=== PATIENT | male | born 1960 | race Caucasian/White ===

== ENCOUNTER 2019-01-23 16:48 | Inpatient (IN) | payer OTHER ==
[~2019-01-23] VITALS: Ht 177.8 cm; Wt 88.5 kg
--- OUTSIDE RECORDS SUMMARY | 2019-01-23 16:51 | XMS REPORT ---
Author Author Cornell Glez Organization [employer] Address Unknown Phone Unavailable Care Team Providers Care Coater Brake Linings Name Role Phone Cornell Glez CP Unavailable Allergies, Adverse Reactions, Alerts Substance Reaction Event Type N.K.D.A. 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 Active Problem Peripheral vascular disease I73.9 Active Assessment Diabetic retinopathy associated with controlled type 2 diabetes mellitus E11.319 Active Problem Other and unspecified hyperlipidemia E78.5 Active Problem Cardiomyopathy I42.9 Active Problem History of CVA (cerebrovascular accident) Z86.73 Active Problem Essential (primary) hypertension I10 Active Problem Proliferative diabetic retinopathy 362.02 Active Problem Gastroparesis K31.84 Active Assessment Essential (primary) hypertension I10 Active Assessment Type 2 diabetes mellitus with diabetic chronic kidney disease E11.22 Active Assessment Chronic kidney disease, stage 4 (severe) N18.4 Active Assessment Other and unspecified hyperlipidemia E78.5 Active Problem Diabetic retinopathy associated with controlled type 2 diabetes mellitus E11.319 Active Problem Hypertensive urgency I16.0 Active Problem Periaortic lymphadenopathy R59.0 Active Problem Elevated PSA R97.20 Active Problem Right carotid artery occlusion I65.21 Active Problem Chronic combined systolic and diastolic heart failure I50.42 Active Medications Medication Code System Code Instructions Start Date End Date Status Dosage Atorvastatin Calcium ND 81377928185 40 mg Orally Once a day Active 1 tablet Pantoprazole Sodium ND 02592754972 40 mg Orally twice a day (bid) Active 1 tablet Glimepiride ND 82661031184 4 mg Orally Once a day April 20, 2018 Active 1 tablet with breakfast or the first main meal of the day Reglan ND 63511555445 5 MG Orally 4 times a day befor meals and at bedtime Active 1 tablet Hemocyte Plus [facility] 12652372056 106-1 MG Orally Once a day April 24, 2018 Active 1 capsule HydrALAZINE HCl [facility] 73616214872 50 mg Orally BID April 20, 2018 Active 1 tablet Lasix [facility] 34750096334 40 mg Orally Once a day April 20, 2018 Active 1 tablet Aspir-[address] [facility] 81320881496 81 MG Orally Once a day Active 1 tablet Vital Signs Date/Time: May 29, 2018 BMI 29.03 Index Weight 196.6 lbs Height 69.0 in Temperature 97.1 F Cardiac Monitoring Heart Rate 82 /min Blood Pressure Diastolic 94 mm Hg Blood Pressure Systolic 183 mm Hg Results No Known Results Summary Purpose [employer] Submission
--- OUTSIDE RECORDS SUMMARY | 2019-01-23 16:51 | XMS REPORT ---
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 Active Problem Peripheral vascular disease I73.9 Active Problem Other and unspecified hyperlipidemia E78.5 Active Problem Cardiomyopathy I42.9 Active Problem History of CVA (cerebrovascular accident) Z86.73 Active Problem Essential (primary) hypertension I10 Active Problem Proliferative diabetic retinopathy 362.02 Active Problem Gastroparesis K31.84 Active Problem Diabetic retinopathy associated with controlled type 2 diabetes mellitus E11.319 Active Problem Hypertensive urgency I16.0 Active Problem Periaortic lymphadenopathy R59.0 Active Problem Elevated PSA R97.20 Active Problem Right carotid artery occlusion I65.21 Active Problem Chronic combined systolic and diastolic heart failure I50.42 Active Medications No Known Medications Results No Known Results Summary Purpose [employer] Submission
--- OUTSIDE RECORDS SUMMARY | 2019-01-23 16:51 | XMS REPORT ---
Author Author Cornell Glez Organization [employer] Address Unknown Phone Unavailable Care Team Providers Care Particle Board Supervisor Name Role Phone Cornell Glez CP Unavailable [...]
--- OUTSIDE RECORDS SUMMARY | 2019-01-23 16:51 | XMS REPORT ---
Author Author Cornell Glez Organization [employer] Address Unknown Phone Unavailable Care Team Providers Care Panel Builder Name Role Phone Cornell Glez CP Unavailable [...] Problem Peripheral vascular disease I73.9 Active Assessment Peripheral vascular disease I73.9 Active Problem Other and unspecified hyperlipidemia E78.5 Active Problem Cardiomyopathy I42.9 Active Problem History of CVA (cerebrovascular accident) Z86.73 Active Problem Essential (primary) hypertension I10 Active Problem Proliferative diabetic retinopathy 362.02 Active Problem Gastroparesis K31.84 Active Assessment Essential (primary) hypertension I10 Active Assessment Type 2 diabetes mellitus with diabetic chronic kidney disease E11.22 Active Assessment Hypertensive urgency I16.0 Active Problem Diabetic retinopathy associated with controlled type 2 diabetes mellitus E11.319 Active Problem Hypertensive urgency I16.0 Active Problem Periaortic lymphadenopathy R59.0 Active Problem Elevated PSA R97.20 Active Problem Right carotid artery occlusion I65.21 Active Problem Chronic combined systolic and diastolic heart failure I50.42 Active Medications Medication Code System Code Instructions Start Date End Date Status Dosage Pantoprazole Sodium [facility] 76415731049 40 mg Orally twice a day (bid) Active 1 tablet Questran ND 68285504940 4 GM Orally Twice a day for diarrhea Oct 22, 2018 Active 1 packet mixed with water or non-carbonated drink Reglan ND 42201523447 5 MG Orally 4 times a day befor meals and at bedtime Active 1 tablet Hemocyte Plus [facility] 00801340646 106-1 MG Orally Once a day April 24, 2018 Active 1 capsule Glimepiride ND 87561399864 4 mg Orally Once a day April 20, 2018 Active 1 tablet with breakfast or the first main meal of the day Lasix [facility] 69197586535 40 mg Orally Once a day April 20, 2018 Active 1 tablet Atorvastatin Calcium [facility] 84693120666 40 mg Orally Once a day Active 1 tablet HydrALAZINE HCl [facility] 76578174224 50 mg Orally BID April 20, 2018 Active 1 tablet Aspir-81 [facility] 25290878792 81 MG Orally Once a day Active 1 tablet Metoprolol Tartrate [facility] 83760404227 50 mg Orally Twice a day Oct 20, 2018 Active 1 tablet with food Vital Signs Date/Time: Oct 20, 2018 BMI 28.72 Index Weight 194.5 lbs Height 69.0 in Temperature 96.2 F Cardiac Monitoring Heart Rate 83 /min Blood Pressure Diastolic 97 mm Hg Blood Pressure Systolic 183 mm Hg Results Name Result Date Reference Range Unit Abnormality Flag CBC (INCLUDES DIFF/PLT) ----ABSOLUTE NEUTROPHILS 3055 20181021 3007-0209 cells/uL N ----MPV 10.4 33424117 7.5-12.5 fL N ----EOSINOPHILS 5.5 96758283 % N ----HEMOGLOBIN 7.5 78513340 13.2-17.1 g/dL L ----MONOCYTES 9.8 76621165 % N ----HEMATOCRIT 22.5 96798833 38.5-50.0 % L ----LYMPHOCYTES 19.1 31275667 % N ----MCV 94.9 63834693 80.0-100.0 fL N ----NEUTROPHILS 65 56325739 % N ----MCH 31.6 87475140 27.0-33.0 pg N ----ABSOLUTE BASOPHILS 28 36153041 0-200 cells/uL N ----MCHC 33.3 41093502 32.0-36.0 g/dL N ----BASOPHILS 0.6 51745843 % N ----ABSOLUTE EOSINOPHILS 259 98733862 15-500 cells/uL N ----RDW 14.0 13401009 11.0-15.0 % N ----WHITE BLOOD CELL COUNT 4.7 18047547 3.8-10.8 Thousand/uL N ----PLATELET COUNT 195 64233905 140-400 Thousand/uL N ----ABSOLUTE MONOCYTES 461 20181021 200-950 cells/uL N ----RED BLOOD CELL COUNT 2.37 20181021 4.20-5.80 Million/uL L ----ABSOLUTE LYMPHOCYTES 898 20181021 850-3900 cells/uL N HEMOGLOBIN A1c ----HEMOGLOBIN A1c 5.2 20181021 <5.7 % of total Hgb N LIPID PANEL ----NON HDL CHOLESTEROL 146 20181021 <130 mg/dL (calc) H ----CHOL/HDLC RATIO 4.9 20181021 <5.0 (calc) N ----CHOLESTEROL, TOTAL 183 20181021 <200 mg/dL N ----HDL CHOLESTEROL 37 20181021 >40 mg/dL L ----TRIGLYCERIDES 86 20181021 <150 mg/dL N ----LDL-CHOLESTEROL 127 20181021 mg/dL (calc) H COMPREHENSIVE METABOLIC PANEL ----SODIUM 137 20181021 135-146 mmol/L N ----BUN/CREATININE RATIO 12 20181021 6-22 (calc) N ----CHLORIDE 109 20181021 98-110 mmol/L N ----POTASSIUM 5.8 20181021 3.5-5.3 mmol/L H ----CALCIUM 8.0 20181021 8.6-10.3 mg/dL L ----PROTEIN, TOTAL 6.9 20181021 6.1-8.1 g/dL N ----CARBON DIOXIDE 19 20181021 20-32 mmol/L L ----ALBUMIN/GLOBULIN RATIO 1.2 20181021 1.0-2.5 (calc) N ----eGFR NON-AFR. ZIMBABWEAN 14 20181021 > OR=60 mL/min/1.73m2 L ----BILIRUBIN, TOTAL 0.4 20181021 0.2-1.2 mg/dL N ----eGFR 16 20181021 > OR=60 mL/min/1.73m2 L ----UREA NITROGEN (BUN) 52 20181021 7-25 mg/dL H ----ALBUMIN 3.8 20181021 3.6-5.1 g/dL N ----GLOBULIN 3.1 20181021 1.9-3.7 g/dL (calc) N ----CREATININE 4.30 20181021 0.70-1.33 mg/dL H ----ALT 10 20181021 9-46 U/L N ----GLUCOSE 100 20181021 65-99 mg/dL H ----ALKALINE PHOSPHATASE 61 20181021 40-115 U/L N ----AST 12 20181021 10-35 U/L N TSH ----TSH 3.54 20181021 0.40-4.50 mIU/L N Summary Purpose [employer]Works Submission
--- OUTSIDE RECORDS SUMMARY | 2019-01-23 16:51 | XMS REPORT | Continuity of Care Document ---
Author Author [facility] Interface Address Unknown Phone Unavailable Problems Problem Status Onset Date Classification Date Reported Comments Source Chronic kidney disease, stage 4 Active Problem 11/09/2018 2.16.840.1.018346.4.391.11.13544 Type 2 diabetes mellitus with diabetic chronic kidney disease Active Problem 11/09/2018 2.16.840.1.003022.4.391.11.78732 Type 2 diabetes mellitus with diabetic autonomic neuropathy Active Problem 11/09/2018 2.16.840.1.231217.4.391.11.32787 Peripheral vascular disease Active Problem 11/09/2018 2.16.840.1.521072.4.391.11.76523 Diabetic retinopathy associated with controlled type 2 diabetes mellitus Active Problem 11/09/2018 2.16.840.1.987356.4.391.11.82240 Other and unspecified hyperlipidemia Active Problem 11/09/2018 2.16.840.1.568798.4.391.11.27810 Cardiomyopathy Active Problem 11/09/2018 2.16.840.1.460416.4.391.11.33598 History of CVA Active Problem 11/09/2018 2.16.840.1.558115.4.391.11.79437 Essential hypertension Active Problem 11/09/2018 2.16.840.1.234737.4.391.11.33993 Proliferative diabetic retinopathy Active Problem 11/09/2018 2.16.840.1.385051.4.391.11.41717 Gastroparesis Active Problem 11/09/2018 2.16.840.1.785640.4.391.11.90388 Hypertensive urgency Active Problem 11/09/2018 2.16.840.1.761806.4.391.11.19272 Periaortic lymphadenopathy Active Problem 11/09/2018 2.16.840.1.390826.4.391.11.73180 Elevated PSA Active Problem 11/09/2018 2.16.840.1.371258.4.391..47973 Right carotid artery occlusion Active Problem 11/09/2018 2.16.840.1.265221.4.391.11.61538 Chronic combined systolic and diastolic heart failure Active Problem 11/09/2018 2.16.840.1.867532.4.391. Acute bronchitis, unspecified organism Active Diagnosis 11/09/2018 2.16.840.1.248338.4.391..33058 Medications Medication Details Route Status Patient Instructions Ordering Provider Order Date Source Questran 1 packet mixed with water or non-carbonated drink Orally Active 4 GM Orally Twice a day [place] 11/03/2018 2.16.840.1.922205.4.391. Promethazine-DM 5 ml as needed Orally Active 6.25-15 MG/5ML Orally every 6 hrs [place] 11/03/2018 2.16.840.1.589885.4.391.. Ceftin 1 tablet Orally Active 250 MG Orally every 12 hrs [place] 11/03/2018 2.16.840.1.879868.4.391. Questran 1 packet mixed with water or non-carbonated drink Orally Active 4 GM Orally Twice a day for diarrhea [place] 10/22/2018 2.16.840.1.997952.4.391. Metoprolol Tartrate 1 tablet with food Orally Active 100 mg Orally Twice a day [place] 10/20/2018 2.16.840.1.668228.4.391. Metoprolol Tartrate 1 tablet with food Orally Active 50 mg Orally Twice a day [place] 10/20/2018 2.16.840.1.717134.4.391. Hemocyte Plus 1 capsule Orally Active 106-1 MG Orally Once a day [place] 04/24/2018 2.16.840.1.905146.4.391. Glimepiride 1 tablet with breakfast or the first main meal of the day Orally Active 4 mg Orally Once a day [place] 04/20/2018 2.16.840.1.029634.4.391.11. HydrALAZINE HCl 1 tablet Orally Active 50 mg Orally BID [place] 04/20/2018 2.16.840.1.647197.4.391.11. Lasix 1 tablet Orally Active 40 mg Orally Once a day [place] 04/20/2018 2.16.840.1.397785.4.391.. HydrALAZINE HCl 1 tablet Orally Active 100 MG Orally BID [place] 04/20/2018 2.16.840.1.503012.4.391.11. Atorvastatin Calcium 1 tablet Orally Active 40 mg Orally Once a day [place] 2.16840.1.543096.4.391. Pantoprazole Sodium 1 tablet Orally Active 40 mg Orally twice a day (bid) [place] 2.16840.1.578930.4.391. Reglan 1 tablet Orally Active 5 MG Orally 4 times a day befor meals and at bedtime [place] 2.16.840.1.670149.4.391. Aspir-81 1 tablet Orally Active 81 MG Orally Once a day [place] 2.16840.1.002170.4.391.. Allergies, Adverse Reactions, Alerts Substance Category Reaction Severity Reaction type Status Date Reported Comments Source N.K.D.A. Adverse Reaction Info Not Available Adverse Reaction Active 11/03/2018 2.16840.1.087813.4.391..71823 Immunizations Immunization Date Given Site Status Last Updated Comments Source Results Order Name Results Value Reference Range Date Interpretation Comments Source Vital Signs Vital Sign Value Date Comments Source Weight 194.0 11/03/2018 2.16.840.1.800294.4.391..45927 Height 69.0 11/03/2018 2.16.840.1.259649.4.391..32153 Temperature Oral (F) 97.0 F 11/03/2018 2.16.840.1.562871.4.391..79242 Heart Rate 86 11/03/2018 2.16.840.1.294611.4.391.11.80681 Diastolic (mm Hg) 100 11/03/2018 2.16.840.1.075401.4.391.11.83342 Systolic (mm Hg) 166 11/03/2018 2.16.840.1.551957.4.391.11.62451 Weight 194.5 10/20/2018 2.16.840.1.760669.4.391.11.06563 Height 69.0 10/20/2018 2.16.840.1.208493.4.391.11.24241 Temperature Oral (F) 96.2 F 10/20/2018 2.16.840.1.900265.4.391.11.26100 Heart Rate 83 10/20/2018 2.16.840.1.560381.4.391.11.00894 Diastolic (mm Hg) 97 10/20/2018 2.16.840.1.138378.4.391.11.58611 Systolic (mm Hg) 183 10/20/2018 2.16.840.1.858004.4.391.11.02270 Weight 196.6 05/29/2018 2.16.840.1.821380.4.391.11.30984 Height 69.0 05/29/2018 2.16.840.1.359069.4.391.11.98080 Temperature Oral (F) 97.1 F 05/29/2018 2.16.840.1.457877.4.391.11.89181 Heart Rate 82 05/29/2018 2.16.840.1.339841.4.391.11.30115 Diastolic (mm Hg) 94 05/29/2018 2.16.840.1.239419.4.391.11.09587 Systolic (mm Hg) 183 05/29/2018 2.16.840.1.415500.4.391.11.54455 Encounters Location Location Details Encounter Type Encounter Number Reason For Visit Attending Provider ADM Date DC Date Status Source Procedures Procedure Code Date Perfomer Comments Source
--- OUTSIDE RECORDS SUMMARY | 2019-01-23 16:51 | XMS REPORT ---
Author Author Cornell Glez Organization [employer] Address Unknown Phone Unavailable Care Team Providers Care Steel Checker Name Role Phone Cornell Glez CP Unavailable [...] 362.02 Active Problem Gastroparesis K31.84 Active Assessment Acute bronchitis, unspecified organism J20.9 Active Assessment Type 2 diabetes mellitus with diabetic chronic kidney disease E11.22 Active Assessment Essential (primary) hypertension I10 Active Problem Diabetic retinopathy associated with controlled type 2 diabetes mellitus E11.319 Active Problem Hypertensive urgency I16.0 Active Problem Periaortic lymphadenopathy R59.0 Active Problem Elevated PSA R97.20 Active Problem Right carotid artery occlusion I65.21 Active Problem Chronic combined systolic and diastolic heart failure I50.42 Active Medications Medication Code System Code Instructions Start Date End Date Status Dosage Aspir-81 [facility] 37194072589 81 MG Orally Once a day Active 1 tablet Lasix [facility] 34511429932 40 mg Orally Once a day April 20, 2018 Active 1 tablet Pantoprazole Sodium [facility] 23332047473 40 mg Orally twice a day (bid) Active 1 tablet Questran [facility] 93912218452 4 GM Orally Twice a day Nov 03, 2018 Active 1 packet mixed with water or non-carbonated drink Hemocyte Plus [facility] 39885976943 106-1 MG Orally Once a day April 24, 2018 Active 1 capsule Glimepiride [facility] 15181848772 4 mg Orally Once a day April 20, 2018 Active 1 tablet with breakfast or the first main meal of the day Promethazine-DM ND 63229475380 6.25-15 MG/5ML Orally every 6 hrs Nov 03, 2018 Nov 13, 2018 Active 5 ml as needed Metoprolol Tartrate [facility] [address]-36 100 mg Orally Twice a day Oct 20, 2018 Active 1 tablet with food HydrALAZINE HCl ND 34549782148 100 MG Orally BID April 20, 2018 Active 1 tablet Questran ND 20788498396 4 GM Orally Twice a day for diarrhea Oct 22, 2018 Active 1 packet mixed with water or non-carbonated drink Ceftin NDC 0 250 MG Orally every 12 hrs Nov 03, 2018 Nov 13, 2018 Active 1 tablet Atorvastatin Calcium ND 89176631097 40 mg Orally Once a day Active 1 tablet Reglan ND 34004348311 5 MG Orally 4 times a day befor meals and at bedtime Active 1 tablet Vital Signs Date/Time: Nov 03, 2018 BMI 28.65 Index Weight 194.0 lbs Height 69.0 in Temperature 97.0 F Cardiac Monitoring Heart Rate 86 /min Blood Pressure Diastolic 100 mm Hg Blood Pressure Systolic 166 mm Hg Results No Known Results Summary Purpose [employer]ClinicalWorks Submission
--- OUTSIDE RECORDS SUMMARY | 2019-01-23 16:52 | XMS REPORT ---
Author [facility] Address Unknown Phone Unavailable Care Team Providers Care Last Putter Away Name Role Phone UNKNOWN, REFFERING PP Unavailable Terry WICK MOBNI Unavailable Unavailable NANJAMES, S CHEL Unavailable Unavailable CLARKE DERAS Unavailable Unavailable RASSOLI, AMIR Unavailable Unavailable Payers Payer Name Policy Type Policy Number Effective Date Expiration Date Problems This patient has no known problems. Allergies, Adverse Reactions, Alerts Allergy Name Allergy Type Status Severity Reaction(s) Onset Date Inactive Date Treating Clinician Comments No Known Allergies DA Active U 2018-09-02 00:00:00 No Known Allergies DA Active U 2018-01-20 00:00:00 Medications This patient has no known medications. Encounters Start Date/Time End Date/Time Encounter Type Admission Type Attending Clinicians Care Facility Care Department Encounter ID 2018-02-03 17:03:00 2018-02-03 17:03:00 Outpatient E [facility] MED [id number] 2018-01-16 23:19:00 2018-01-16 23:19:00 Emergency E [facility] MED [id number] Results Test Description Test Time Test Comments Text Results Atomic Results Result Comments Culture, Blood Routine 2018-02-06 19:44:00 Specimen: BloodCollected: 02/01/2018 10:15 Status: Final Last Updated: 02/06/2018 19:44 Culture Result (Final) (Final) No Growth After 5 Days Culture, Blood Routine 2018-02-06 19:44:00 Specimen: BloodCollected: 02/01/2018 10:00 Status: Final Last Updated: 02/06/2018 19:44 Culture Result (Final) (Final) No Growth After 5 Days POC Glucose, Blood 2018-02-06 11:56:00 POC Glucose (test code=POCGLUC) 221 mg/dL 70-115 If you consider your patient critically ill, the Yoandy Accu-Chek InformII metershould not be used for Glucose determinations.Draw a venous Glucose and send to the Main Lab for Analysis. POC Glucose, [id number] 08:28:00* Test Item Value Reference Range Comments POC Glucose (test code=POCGLUC) 140 mg/dL 70-115 If you consider your patient critically ill, the Yoandy Accu-Chek InformII metershould not be used for Glucose determinations.Draw a venous Glucose and send to the Main Lab for Analysis. Basic Metabolic [id number] 07:58:00* Test Item Value Reference Range Comments Sodium (test code=NA) 141 mmol/L 135-145 Potassium (test code=K) 4.1 mmol/L 3.5-5.1 Chloride (test code=CL) 101 mmol/L 98-105 Carbon Dioxide (test code=CO2) 28 mmol/L 22-29 Glucose (test code=GLU) 119 mg/dL 70-115 Blood Urea Nitrogen (test code=BUN) 37 mg/dL 6-20 Creatinine (test code=CREAT) 2.6 mg/dL 0.7-1.2 Calcium (test code=CA) 8.1 mg/dL 8.3-10.5 BUN/Creatinine Ratio (test code=BCRATIO) 14.2 Anion Gap (test code=AGAP) 12 mmol/L 7-16 Estimated GFR (test code=GFR) 27 mL/min/1.73m2 eGFR (estimated Glomerular Filtration Rate) is an estimated value,calculated from the patient's serum creatinine using the MDRD equation.It is NOT the patient's actual GFR. The eGFR provides a more clinicallyuseful measure of kidney disease than serum creatinine alone.This calculation takes sex and race into account, if the informationis provided. If the race is not provided, and the patient isAfrican-Danish, multiply by 1.212. If sex is not provided, and thepatient is female, multiply by 0.742. Results for patients <18 years ofage have not been validated by the MDRD study and should be interpretedwith caution.eGFR Result Interpretation:eGFR > or=60 is in the Normal RangeeGFR < 60 may mean kidney diseaseeGFR < 15 may mean kidney failureRanges recommended by the National Kidney Foundat ion,http://nkdep.nih.gov Magnesium, [id number] 07:40:00* Test Item Value Reference Range Comments Magnesium (test code=MG) 1.6 mg/dL 1.7-2.5 [id number] 07:40:00* Test Item Value Reference Range Comments Phosphorus (test code=PO4) 3.4 mg/dL 2.70-4.50 CBC with [id number] 07:06:00* Test Item Value Reference Range Comments WBC (test code=WBC) 5.0 K/cumm 4.4-10.5 RBC (test code=RBC) 3.13 M/cumm 4.10-5.70 Hemoglobin (test code=HGB) 8.8 gm/dL 13.4-17.4 Hematocrit (test code=HCT) 27.9 % 38.7-52.0 MCV (test code=MCV) 89.1 fL 80-100 MCH (test code=MCH) 28.1 pg 27.0-32.5 MCHC (test code=MCHC) 31.6 g/dL 32.0-37.5 RDW (test code=RDW) 14.6 % 11.5-14.5 Platelet Count (test code=PLTCT) 240 K/cumm 140-440 MPV (test code=MPV) 10.1 fL Diff Method (test code=DIFFM) Auto Neutrophil (test code=NEUT) 60.4 % 36-70 Lymphocyte (test code=LYMPH) 25.8 % 12-44 Monocyte (test code=MONO) 7.0 % 0-11 Eosinophil (test code=EOS) 6.2 % 0-7 Basophil (test code=BASO) 0.6 % 0-2 Neutro Abs (test code=ANEUT) 3.0 K/cumm 1.6-7.4 Lymph Abs (test code=ALYMPH) 1.3 K/cumm 0.5-4.6 [place] Abs (test code=AMONO) 0.4 K/cumm 0.0-1.2 Eos Abs (test code=AEOS) 0.31 K/cumm 0.00-0.74 Baso Abs (test code=ABASO) 0.0 K/cumm 0.00-0.21 POC Glucose, [id number] 20:10:00* Test Item Value Reference Range Comments POC Glucose (test code=POCGLUC) 137 mg/dL 70-115 If you consider your patient critically ill, the Yoandy Accu-Chek InformII metershould not be used for Glucose determinations.Draw a venous Glucose and send to the Main Lab for Analysis. POC Glucose, [id number] 15:24:00* Test Item Value Reference Range Comments POC Glucose (test code=POCGLUC) 205 mg/dL 70-115 If you consider your patient critically ill, the Yoandy Accu-Chek InformII metershould not be used for Glucose determinations.Draw a venous Glucose and send to the Main Lab for Analysis. POC Glucose, [id number] 11:23:00* Test Item Value Reference Range Comments POC Glucose (test code=POCGLUC) 243 mg/dL 70-115 If you consider your patient critically ill, the Yoandy Accu-Chek InformII metershould not be used for Glucose determinations.Draw a venous Glucose and send to the Main Lab for Analysis. POC Glucose, [id number] 07:56:00* Test Item Value Reference Range Comments POC Glucose (test code=POCGLUC) 167 mg/dL 70-115 If you consider your patient critically ill, the Yoandy Accu-Chek InformII metershould not be used for Glucose determinations.Draw a venous Glucose and send to the Main Lab for Analysis. RBC, Crossmatch 06:00:00* Test Item Value Reference Range Comments Product 1 Code (test code=PRODCODE1) E0336 Unit 1 ID (test code=UNITID1) [id number] Unit 1 ABO (test code=UNITABO1) A Unit 1 Rh (test code=UNITRH1) POS Unit 1 Interp (test code=UNITINTERP1) Compatible Unit 1 Status (test code=UNITSTAT1) PT Product 2 Code (test code=PRODCODE2) E4533 Unit 2 ID (test code=UNITID2) [id number] Unit 2 ABO (test code=UNITABO2) A Unit 2 Rh (test code=UNITRH2) NEG Unit 2 Interp (test code=UNITINTERP2) Compatible Unit 2 Status (test code=UNITSTAT2) PT Basic Metabolic [id number] 05:44:00* Test Item Value Reference Range Comments Sodium (test code=NA) 140 mmol/L 135-145 Potassium (test code=K) 3.6 mmol/L 3.5-5.1 Chloride (test code=CL) 102 mmol/L 98-105 Carbon Dioxide (test code=CO2) 26 mmol/L 22-29 Glucose (test code=GLU) 151 mg/dL 70-115 Blood Urea Nitrogen (test code=BUN) 47 mg/dL 6-20 Creatinine (test code=CREAT) 2.8 mg/dL 0.7-1.2 Calcium (test code=CA) 7.7 mg/dL 8.3-10.5 BUN/Creatinine Ratio (test code=BCRATIO) 16.8 Anion Gap (test code=AGAP) 12 mmol/L 7-16 Estimated GFR (test code=GFR) 25 mL/min/1.73m2 eGFR (estimated Glomerular Filtration Rate) is an estimated value,calculated from the patient's serum creatinine using the MDRD equation.It is NOT the patient's actual GFR. The eGFR provides a more clinicallyuseful measure of kidney disease than serum creatinine alone.This calculation takes sex and race into account, if the informationis provided. If the race is not provided, and the patient isAfrican-Danish, multiply by 1.212. If sex is not provided, and thepatient is female, multiply by 0.742. Results for patients <18 years ofage have not been validated by the MDRD study and should be interpretedwith caution.eGFR Result Interpretation:eGFR > or=60 is in the Normal RangeeGFR < 60 may mean kidney diseaseeGFR < 15 may mean kidney failureRanges recommended by the National Kidney Foundat ion,http://nkdep.nih.gov [id number] 05:42:00* Test Item Value Reference Range Comments Phosphorus (test code=PO4) 3.7 mg/dL 2.70-4.50 Magnesium, [id number] 05:42:00* Test Item Value Reference Range Comments Magnesium (test code=MG) 1.9 mg/dL 1.7-2.5 CBC with [id number] 05:27:00* Test Item Value Reference Range Comments WBC (test code=WBC) 5.9 K/cumm 4.4-10.5 RBC (test code=RBC) 2.99 M/cumm 4.10-5.70 Hemoglobin (test code=HGB) 8.7 gm/dL 13.4-17.4 Hematocrit (test code=HCT) 26.4 % 38.7-52.0 MCV (test code=MCV) 88.3 fL 80-100 MCH (test code=MCH) 29.2 pg 27.0-32.5 MCHC (test code=MCHC) 33.1 g/dL 32.0-37.5 RDW (test code=RDW) 14.5 % 11.5-14.5 Platelet Count (test code=PLTCT) 221 K/cumm 140-440 MPV (test code=MPV) 9.8 fL Diff Method (test code=DIFFM) Auto Neutrophil (test code=NEUT) 67.0 % 36-70 Lymphocyte (test code=LYMPH) 20.7 % 12-44 Monocyte (test code=MONO) 6.7 % 0-11 Eosinophil (test code=EOS) 5.1 % 0-7 Basophil (test code=BASO) 0.4 % 0-2 Neutro Abs (test code=ANEUT) 3.9 K/cumm 1.6-7.4 Lymph Abs (test code=ALYMPH) 1.2 K/cumm 0.5-4.6 [place] Abs (test code=AMONO) 0.4 K/cumm 0.0-1.2 Eos Abs (test code=AEOS) 0.30 K/cumm 0.00-0.74 Baso Abs (test code=ABASO) 0.0 K/cumm 0.00-0.21 POC Glucose, [id number] 20:21:00* Test Item Value Reference Range Comments POC Glucose (test code=POCGLUC) 155 mg/dL 70-115 Notify RN or MDIf you consider your patient critically ill, the Yoandy Accu-Chek InformII metershould not be used for Glucose determinations.Draw a venous Glucose and send to the Main Lab for Analysis. POC Glucose, [id number] 15:52:00* Test Item Value Reference Range Comments POC Glucose (test code=POCGLUC) 145 mg/dL 70-115 If you consider your patient critically ill, the Yoandy Accu-Chek InformII metershould not be used for Glucose determinations.Draw a venous Glucose and send to the Main Lab for Analysis. POC Glucose, [id number] 11:22:00* Test Item Value Reference Range Comments POC Glucose (test code=POCGLUC) 188 mg/dL 70-115 If you consider your patient critically ill, the Yoandy Accu-Chek InformII metershould not be used for Glucose determinations.Draw a venous Glucose and send to the Main Lab for Analysis. POC Glucose, [id number] 08:02:00* Test Item Value Reference Range Comments POC Glucose (test code=POCGLUC) 128 mg/dL 70-115 If you consider your patient critically ill, the Yoandy Accu-Chek InformII metershould not be used for Glucose determinations.Draw a venous Glucose and send to the Main Lab for Analysis. CBC with [id number] 06:26:00* Test Item Value Reference Range Comments WBC (test code=WBC) 5.8 K/cumm 4.4-10.5 RBC (test code=RBC) 2.82 M/cumm 4.10-5.70 Hemoglobin (test code=HGB) 8.3 gm/dL 13.4-17.4 READ BACK LAB VALUESVERIFIED BY REPEAT TESTINGrechecked & called to dionisiorn @ 1151, post txn/mj Hematocrit (test code=HCT) 24.7 % 38.7-52.0 MCV (test code=MCV) 87.4 fL 80-100 MCH (test code=MCH) 29.5 pg 27.0-32.5 MCHC (test code=MCHC) 33.8 g/dL 32.0-37.5 RDW (test code=RDW) 14.3 % 11.5-14.5 Platelet Count (test code=PLTCT) 188 K/cumm 140-440 MPV (test code=MPV) 7.1 fL Diff Method (test code=DIFFM) Auto Neutrophil (test code=NEUT) 64.2 % 36-70 Lymphocyte (test code=LYMPH) 23.6 % 12-44 Monocyte (test code=MONO) 8.5 % 0-11 Eosinophil (test code=EOS) 3.4 % 0-7 Basophil (test code=BASO) 0.3 % 0-2 Neutro Abs (test code=ANEUT) 3.7 K/cumm 1.6-7.4 Lymph Abs (test code=ALYMPH) 1.4 K/cumm 0.5-4.6 [place] Abs (test code=AMONO) 0.5 K/cumm 0.0-1.2 Eos Abs (test code=AEOS) 0.20 K/cumm 0.00-0.74 Baso Abs (test code=ABASO) 0.0 K/cumm 0.00-0.21 Comprehensive Metabolic [id number] 06:11:00* Test Item Value Reference Range Comments Sodium (test code=NA) 139 mmol/L 135-145 Potassium (test code=K) 3.3 mmol/L 3.5-5.1 Chloride (test code=CL) 100 mmol/L 98-105 Carbon Dioxide (test code=CO2) 26 mmol/L 22-29 Glucose (test code=GLU) 147 mg/dL 70-115 Blood Urea Nitrogen (test code=BUN) 51 mg/dL 6-20 Creatinine (test code=CREAT) 3.2 mg/dL 0.7-1.2 Calcium (test code=CA) 7.4 mg/dL 8.3-10.5 Prot Total (test code=TP) 5.6 g/dL 6.4-8.3 Albumin (test code=ALB) 3.1 g/dL 3.5-5.2 A/G Ratio (test code=AGRATIO) 1.2 Ratio Globulin (test code=GLOB) 2.5 2.9-3.1 Bili Total (test code=TBIL) 0.8 mg/dL 0.1-0.9 Alk Phos (test code=APHOS) 52 U/L 40-129 AST (test code=AST) 13 U/L 1-40 ALT (test code=ALT) 8 U/L 1-41 BUN/Creatinine Ratio (test code=BCRATIO) 15.9 Anion Gap (test code=AGAP) 13 mmol/L 7-16 Estimated GFR (test code=GFR) 21 mL/min/1.73m2 eGFR (estimated Glomerular Filtration Rate) is an estimated value,calculated from the patient's serum creatinine using the MDRD equation.It is NOT the patient's actual GFR. The eGFR provides a more clinicallyuseful measure of kidney disease than serum creatinine alone.This calculation takes sex and race into account, if the informationis provided. If the race is not provided, and the patient isAfrican-Danish, multiply by 1.212. If sex is not provided, and thepatient is female, multiply by 0.742. Results for patients <18 years ofage have not been validated by the MDRD study and should be interpretedwith caution.eGFR Result Interpretation:eGFR > or=60 is in the Normal RangeeGFR < 60 may mean kidney diseaseeGFR < 15 may mean kidney failureRanges recommended by the National Kidney Foundat ion,http://nkdep.nih.gov Magnesium, [id number] 06:06:00* Test Item Value Reference Range Comments Magnesium (test code=MG) 1.6 mg/dL 1.7-2.5 [id number] 06:06:00* Test Item Value Reference Range Comments Phosphorus (test code=PO4) 4.4 mg/dL 2.70-4.50 POC Glucose, [id number] 21:04:00* Test Item Value Reference Range Comments POC Glucose (test code=POCGLUC) 211 mg/dL 70-115 If you consider your patient critically ill, the Yoandy Accu-Chek InformII metershould not be used for Glucose determinations.Draw a venous Glucose and send to the Main Lab for Analysis. Antibody Screen - [id number] 20:55:00* Test Item Value Reference Range Comments Antibody Screen (test code=ABSCR) Negative Blood Type and [id number] 20:54:00* Test Item Value Reference Range Comments ABO type (test code=ABO) A Rh Type (test code=RH) Positive POC Glucose, [id number] 15:50:00* Test Item Value Reference Range Comments POC Glucose (test code=POCGLUC) 179 mg/dL 70-115 If you consider your patient critically ill, the Yoandy Accu-Chek InformII metershould not be used for Glucose determinations.Draw a venous Glucose and send to the Main Lab for Analysis. Culture, [id number] 10:55:00Specimen: UrineCollected: 02/01/2018 09:27 Status: Final Last Updated: 02/03/2018 10:55 (1) culture and stain Culture Result (Final) (Final) 02/02/18 No growth 24 hours 02/03/18 No growth 48 hours CBC with [id number] 09:10:00* Test Item Value Reference Range Comments WBC (test code=WBC) 7.6 K/cumm 4.4-10.5 RBC (test code=RBC) 2.39 M/cumm 4.10-5.70 Hemoglobin (test code=HGB) 6.7 gm/dL 13.4-17.4 Hematocrit (test code=HCT) 20.9 % 38.7-52.0 MCV (test code=MCV) 87.3 fL 80-100 MCH (test code=MCH) 28.1 pg 27.0-32.5 MCHC (test code=MCHC) 32.2 g/dL 32.0-37.5 RDW (test code=RDW) 14.5 % 11.5-14.5 Platelet Count (test code=PLTCT) 211 K/cumm 140-440 MPV (test code=MPV) 7.2 fL Diff Method (test code=DIFFM) Auto Neutrophil (test code=NEUT) 73.2 % 36-70 Lymphocyte (test code=LYMPH) 18.4 % 12-44 Monocyte (test code=MONO) 6.7 % 0-11 Eosinophil (test code=EOS) 1.3 % 0-7 Basophil (test code=BASO) 0.3 % 0-2 Neutro Abs (test code=ANEUT) 5.6 K/cumm 1.6-7.4 Lymph Abs (test code=ALYMPH) 1.4 K/cumm 0.5-4.6 [place] Abs (test code=AMONO) 0.5 K/cumm 0.0-1.2 Eos Abs (test code=AEOS) 0.10 K/cumm 0.00-0.74 Baso Abs (test code=ABASO) 0.0 K/cumm 0.00-0.21 POC Glucose, [id number] 07:16:00* Test Item Value Reference Range Comments POC Glucose (test code=POCGLUC) 119 mg/dL 70-115 Notify RN or MDIf you consider your patient critically ill, the Yoandy Accu-Chek InformII metershould not be used for Glucose determinations.Draw a venous Glucose and send to the Main Lab for Analysis. Magnesium, [id number] 06:55:00* Test Item Value Reference Range Comments Magnesium (test code=MG) 1.7 mg/dL 1.7-2.5 Basic Metabolic [id number] 06:55:00* Test Item Value Reference Range Comments Sodium (test code=NA) 141 mmol/L 135-145 Potassium (test code=K) 3.8 mmol/L 3.5-5.1 Chloride (test code=CL) 102 mmol/L 98-105 Carbon Dioxide (test code=CO2) 26 mmol/L 22-29 Glucose (test code=GLU) 105 mg/dL 70-115 Blood Urea Nitrogen (test code=BUN) 49 mg/dL 6-20 Creatinine (test code=CREAT) 3.1 mg/dL 0.7-1.2 Calcium (test code=CA) 7.6 mg/dL 8.3-10.5 BUN/Creatinine Ratio (test code=BCRATIO) 15.8 Anion Gap (test code=AGAP) 13 mmol/L 7-16 Estimated GFR (test code=GFR) 22 mL/min/1.73m2 eGFR (estimated Glomerular Filtration Rate) is an estimated value,calculated from the patient's serum creatinine using the MDRD equation.It is NOT the patient's actual GFR. The eGFR provides a more clinicallyuseful measure of kidney disease than serum creatinine alone.This calculation takes sex and race into account, if the informationis provided. If the race is not provided, and the patient isAfrican-Danish, multiply by 1.212. If sex is not provided, and thepatient is female, multiply by 0.742. Results for patients <18 years ofage have not been validated by the MDRD study and should be interpretedwith caution.eGFR Result Interpretation:eGFR > or=60 is in the Normal RangeeGFR < 60 may mean kidney diseaseeGFR < 15 may mean kidney failureRanges recommended by the National Kidney Foundat ion,http://nkdep.nih.gov [id number] 06:55:00* Test Item Value Reference Range Comments Phosphorus (test code=PO4) 4.7 mg/dL 2.70-4.50 POC Glucose, [id number] 19:44:00* Test Item Value Reference Range Comments POC Glucose (test code=POCGLUC) 215 mg/dL 70-115 If you consider your patient critically ill, the Yoandy Accu-Chek InformII metershould not be used for Glucose determinations.Draw a venous Glucose and send to the Main Lab for Analysis. POC Glucose, [id number] 16:55:00* Test Item Value Reference Range Comments POC Glucose (test code=POCGLUC) 236 mg/dL 70-115 If you consider your patient critically ill, the Yoandy Accu-Chek InformII metershould not be used for Glucose determinations.Draw a venous Glucose and send to the Main Lab for Analysis. US CAROTID DUPLEX SCAN, [id number] 14:45:16J91XACGBPD DUPLEX ULTRASOUNDHISTORY: carotid stenosisTECHNIQUE: Grayscale real-time B-mode imaging with spectral and colorflow Doppler analysis was performed of the neck to evaluate theextracranial carotid system.COMPARISON: NoneFINDINGS:Peak systolic velocities in cm/sec:Right CCA: 42Right ICA: OccludedRight ECA: 308Left CCA: 106Left ICA: 199Left ECA: 113Right IC/CC ratio: Not applicableLeft IC/CC ratio: 1.9Scattered collapse scattered atherosclerotic plaque in the left int ernalcarotid artery.Antegrade flow seen in both vertebral arteries.IMPRESSION:Co mplete occlusion of the right internal carotid artery. Flow velocitiessuggest mo derate (50-69%) stenosis in the left internal carotid artery.NOTE: Degree of st enosis is based on velocity criteria as defined bythe Society of Radiologists in Ultrasound Consensus Conference Inydmjans8864.TIBC and [id number] 14:04:00* Test Item Value Reference Range Comments Iron (test code=FE) 27 ug/dL 59-158 UIBC (test code=UIBC) 154 ug/dL 112-346 TIBC (test code=TIBC) 181 ug/dL 171-504 % Saturation (test code=PSAT) 15 % 20-50 US DUPLX EXT VEINS JOE [id number] 13:49:24DICTATION LOCATION: [id number]: swelling of legs, r/o DVTCOMPARISON: None available.TECHNIQUE: Duplex sonography of the bilateral lower extremities withcolor and spectral Doppler, with and without compression. FINDINGS:There is normal compressibility of the bilateral common femoral, femoraland popliteal veins. No calf vein thrombosis is detected.Doppler examination shows normal spontaneous and phasic flow.Pulsatile flow is noted. Cardiac dysfunction/arrhythmia should beclinically excluded.IMPRESSION: No evidence of deep venous thrombosis in the visualized venous segmentsof the lower extremities.Pulsatile flow is noted. Cardiac dysfunction/arrhythmia should beclinically excluded.POC Glucose, [id number] 11:44:00* Test Item Value Reference Range Comments POC Glucose (test code=POCGLUC) 227 mg/dL 70-115 If you consider your patient critically ill, the Yoandy Accu-Chek InformII metershould not be used for Glucose determinations.Draw a venous Glucose and send to the Main Lab for Analysis. Renal [id number] 08:52:00* Test Item Value Reference Range Comments Sodium (test code=NA) 142 mmol/L 135-145 Potassium (test code=K) 4.0 mmol/L 3.5-5.1 Chloride (test code=CL) 102 mmol/L 98-105 Carbon Dioxide (test code=CO2) 22 mmol/L 22-29 Glucose (test code=GLU) 115 mg/dL 70-115 Blood Urea Nitrogen (test code=BUN) 45 mg/dL 6-20 Creatinine (test code=CREAT) 3.0 mg/dL 0.7-1.2 Calcium (test code=CA) 8.5 mg/dL 8.3-10.5 Albumin (test code=ALB) 3.6 g/dL 3.5-5.2 Phosphorus (test code=PO4) 5.0 mg/dL 2.70-4.50 BUN/Creatinine Ratio (test code=BCRATIO) 15.0 Anion Gap (test code=AGAP) 18 mmol/L 7-16 Estimated GFR (test code=GFR) 23 mL/min/1.73m2 eGFR (estimated Glomerular Filtration Rate) is an estimated value,calculated from the patient's serum creatinine using the MDRD equation.It is NOT the patient's actual GFR. The eGFR provides a more clinicallyuseful measure of kidney disease than serum creatinine alone.This calculation takes sex and race into account, if the informationis provided. If the race is not provided, and the patient isAfrican-Danish, multiply by 1.212. If sex is not provided, and thepatient is female, multiply by 0.742. Results for patients <18 years ofage have not been validated by the MDRD study and should be interpretedwith caution.eGFR Result Interpretation:eGFR > or=60 is in the Normal RangeeGFR < 60 may mean kidney diseaseeGFR < 15 may mean kidney failureRanges recommended by the National Kidney Foundat ion,http://nkdep.nih.gov Magnesium, [id number] 08:10:00* Test Item Value Reference Range Comments Magnesium (test code=MG) 1.8 mg/dL 1.7-2.5 POC Glucose, [id number] 07:50:00* Test Item Value Reference Range Comments POC Glucose (test code=POCGLUC) 157 mg/dL 70-115 If you consider your patient critically ill, the Yoandy Accu-Chek InformII metershould not be used for Glucose determinations.Draw a venous Glucose and send to the Main Lab for Analysis. CBC with [id number] 07:49:00* Test Item Value Reference Range Comments WBC (test code=WBC) 10.6 K/cumm 4.4-10.5 RBC (test code=RBC) 2.85 M/cumm 4.10-5.70 Hemoglobin (test code=HGB) 8.0 gm/dL 13.4-17.4 Hematocrit (test code=HCT) 25.8 % 38.7-52.0 MCV (test code=MCV) 90.6 fL 80-100 MCH (test code=MCH) 28.1 pg 27.0-32.5 MCHC (test code=MCHC) 31.0 g/dL 32.0-37.5 RDW (test code=RDW) 14.7 % 11.5-14.5 Platelet Count (test code=PLTCT) 276 K/cumm 140-440 MPV (test code=MPV) 10.1 fL Diff Method (test code=DIFFM) Auto Neutrophil (test code=NEUT) 80.6 % 36-70 Lymphocyte (test code=LYMPH) 13.4 % 12-44 Monocyte (test code=MONO) 4.8 % 0-11 Eosinophil (test code=EOS) 0.9 % 0-7 Basophil (test code=BASO) 0.2 % 0-2 Neutro Abs (test code=ANEUT) 8.5 K/cumm 1.6-7.4 Lymph Abs (test code=ALYMPH) 1.4 K/cumm 0.5-4.6 [place] Abs (test code=AMONO) 0.5 K/cumm 0.0-1.2 Eos Abs (test code=AEOS) 0.09 K/cumm 0.00-0.74 Baso Abs (test code=ABASO) 0.0 K/cumm 0.00-0.21 Thyroid Stimulating Hormone (TSH)2018-02-01 21:42:00* Test Item Value Reference Range Comments TSH (test code=TSH) 1.51 mIU/mL 0.270-4.200 PSA Total w Reflex To PSA [id number] 19:12:00* Test Item Value Reference Range Comments PSA (test code=PSA) 15.67 ng/mL 0.000-3.890 (NOTE)Prostate Specific Antigen Test Information:The Total PSA method is approved for use as an aid in the detection ofprostate cancer when used in conjunction with a digital rectal exam inmen age 50 and older. The total PSA method is also indicated for theserial measurement of PSA to aid in the prognosis and management ofprostate cancer patients.Elevated PSA concentrations can only suggest the presence of prostatecancer until biopsy is performed. PSA concentration can also be elevatedin benign prostatic hyperplasia or inflammatory conditions of theprostate. PSA is generally not elevated in healthy men or men withnon- prostatic carcinoma. PSA FREE (test code=PSAFR) 6.71 ng/mL PSA% (test code=PSA%) 43 % (NOTE)PSA Free Percentage Interpretation:Yoandy Modular E170 Free PSA method was used in conjunction with Outfittery Modular E170 PSA method to determine the free PSA percentage. Values obtained with different assay methods should not be usedinterchangeably. The free PSA percentage is an aid in distinguishingprostate cancer from benign prostatic conditions in men 50 and olderwith a total PSA between 3 and 10 ng/ml and negative digital rectalexamination findings. Prostatic biopsy is required for the diagnosis ofcancer.In patients with total PSA concentrations of 4-10 ng/mL, the probabilityof finding prostate cancer on needle biopsy by age in years :%fPSA ratio 50-59 60-69 70 or older 0-10% 49% 58% 65%11-18% 27% 34% 41%19-25% 18% 24% 30%>25% 9% 12% 16%Other factors may help determine the actual risk of prostate cancer inindividual patients. POC Glucose, [id number] 16:50:00* Test Item Value Reference Range Comments POC Glucose (test code=POCGLUC) 197 mg/dL 70-115 If you consider your patient critically ill, the Yoandy Accu-Chek InformII metershould not be used for Glucose determinations.Draw a venous Glucose and send to the Main Lab for Analysis. Drugs of Abuse Screen, [id number] 15:12:00* Test Item Value Reference Range Comments Amphetamine (test code=AMPH) Negative Negative For diagnostic purposes only, positive results should always be assessedin conjunctionwith the patient's medical history,clinical examination and otherfindings.To fulfill legal requirements, a more specific alternate chemical methodmust be used inorder to obtain a Confirmed analytical result. GC/MS is the preferred confirmatory method. Barbiturates (test code=LAUREN) Negative Negative Benzodiazepine (test code=MARIELA) Negative Negative Cocaine (test code=COCA) Negative Negative Methadone (test code=MTHD) Negative Negative Opiates (test code=OPIA) Negative Negative PCP (test code=PCP) Negative Negative Propoxyphene (test code=PROPOX) Negative Negative THC (test code=THC) Negative Negative [id number] 15:12:00* Test Item Value Reference Range Comments Folate (test code=FOL) 11.5 ng/mL Normal 3.0-20.0 ng/mLBorderline 2.2-3.0 ng/mLDeficient < 2.2 ng/mL Vitamin [id number] 15:12:00* Test Item Value Reference Range Comments Vitamin B 12 (test code=VITB12) 381 pg/mL 211-946 Chloride, Urine [id number] 13:57:00* Test Item Value Reference Range Comments Chloride, Urine (test code=CLURRM) 120 mmol/L Potassium, Urine [id number] 13:57:00* Test Item Value Reference Range Comments K, Urine (test code=KURRM) 26 mmol/L No Reference Ranges available for body fluid Sodium, Urine [id number] 13:57:00* Test Item Value Reference Range Comments Sodium, Urine (test code=NAURRM) 120 mmol/L No Reference Ranges available for body fluid Protein, Urine [id number] 13:57:00* Test Item Value Reference Range Comments TP, Urine (test code=TPURRM) 278.4 mg/dL Creatinine, Urine [id number] 13:56:00* Test Item Value Reference Range Comments Creatinine, Urine Rm (test code=CREURRM) 20.5 mg/dL 10.0-300.0 Glycosylated [id number] 13:56:00* Test Item Value Reference Range Comments HBA1c (test code=HBA1C) 6.0 % 4.8-5.9 Eosinophils, [id number] 12:35:00* Test Item Value Reference Range Comments Eos [Urine] (test code=HUEOS) None Seen % None Seen POC Glucose, [id number] 12:16:00* Test Item Value Reference Range Comments POC Glucose (test code=POCGLUC) 265 mg/dL 70-115 Notify RN or MDIf you consider your patient critically ill, the Yoandy Accu-Chek InformII metershould not be used for Glucose determinations.Draw a venous Glucose and send to the Main Lab for Analysis. CBC with [id number] 11:47:00* Test Item Value Reference Range Comments WBC (test code=WBC) 12.9 K/cumm 4.4-10.5 RBC (test code=RBC) 3.10 M/cumm 4.10-5.70 Hemoglobin (test code=HGB) 8.7 gm/dL 13.4-17.4 Hematocrit (test code=HCT) 27.2 % 38.7-52.0 MCV (test code=MCV) 87.7 fL 80-100 MCH (test code=MCH) 28.0 pg 27.0-32.5 MCHC (test code=MCHC) 31.9 g/dL 32.0-37.5 RDW (test code=RDW) 14.6 % 11.5-14.5 Platelet Count (test code=PLTCT) 269 K/cumm 140-440 MPV (test code=MPV) 7.0 fL Diff Method (test code=DIFFM) Manual Neutrophil (test code=NEUT) 90.0 % 36-70 Bands (test code=BAND) 3.0 % 0-6 Lymphocyte (test code=LYMPH) 3.0 % 12-44 Monocyte (test code=MONO) 4.0 % 0-11 Neutro Abs (test code=ANEUT) 12.0 K/cumm 1.6-7.4 Lymph Abs (test code=ALYMPH) 0.4 K/cumm 0.5-4.6 [place] Abs (test code=AMONO) 0.5 K/cumm 0.0-1.2 RBC Morphology (test code=RBCMRPH) Normal Platelet Est (test code=PLTEST) Normal Platelet on Smear Comprehensive Metabolic [id number] 11:35:00* Test Item Value Reference Range Comments Sodium (test code=NA) 139 mmol/L 135-145 Potassium (test code=K) 5.3 mmol/L 3.5-5.1 Chloride (test code=CL) 102 mmol/L 98-105 Carbon Dioxide (test code=CO2) 20 mmol/L 22-29 Glucose (test code=GLU) 284 mg/dL 70-115 Blood Urea Nitrogen (test code=BUN) 49 mg/dL 6-20 Creatinine (test code=CREAT) 2.8 mg/dL 0.7-1.2 Calcium (test code=CA) 8.6 mg/dL 8.3-10.5 Prot Total (test code=TP) 7.0 g/dL 6.4-8.3 Albumin (test code=ALB) 3.9 g/dL 3.5-5.2 A/G Ratio (test code=AGRATIO) 1.3 Ratio Globulin (test code=GLOB) 3.1 2.9-3.1 Bili Total (test code=TBIL) 0.4 mg/dL 0.1-0.9 Alk Phos (test code=APHOS) 74 U/L 40-129 AST (test code=AST) 18 U/L 1-40 ALT (test code=ALT) 12 U/L 1-41 BUN/Creatinine Ratio (test code=BCRATIO) 17.5 Anion Gap (test code=AGAP) 17 mmol/L 7-16 Estimated GFR (test code=GFR) 25 mL/min/1.73m2 eGFR (estimated Glomerular Filtration Rate) is an estimated value,calculated from the patient's serum creatinine using the MDRD equation.It is NOT the patient's actual GFR. The eGFR provides a more clinicallyuseful measure of kidney disease than serum creatinine alone.This calculation takes sex and race into account, if the informationis provided. If the race is not provided, and the patient isAfrican-Danish, multiply by 1.212. If sex is not provided, and thepatient is female, multiply by 0.742. Results for patients <18 years ofage have not been validated by the MDRD study and should be interpretedwith caution.eGFR Result Interpretation:eGFR > or=60 is in the Normal RangeeGFR < 60 may mean kidney diseaseeGFR < 15 may mean kidney failureRanges recommended by the National Kidney Foundat ion,http://nkdep.nih.gov CK [id number] 11:35:00* Test Item Value Reference Range Comments CK (test code=CK) 357 U/L 39-308 CKMB (test code=CKMB) 10.9 ng/mL 0.0-4.9 CKMB% (test code=CKMBP) 3.1 % 0.0-3.4 Lipid [id number] 11:35:00* Test Item Value Reference Range Comments Cholesterol (test code=CHOL) 174 mg/dL 0-200 Triglycerides (test code=TRIG) 114 mg/dL 9-200 HDL (test code=HDL) 40 mg/dL 40-60 Chol/HDL (test code=CHOLPHDL) 4.4 Ratio 0.0-5.0 LDL, Calculated (test code=LDLC) 111 0-130 (NOTE)RISK OF HEART DISEASEPublished by Danish Heart AssociationAnalyte Optimal Boderline Increased RiskCHOL <200 200-239 >240TRIG <150 150- 199 >200HDL Male: >60 <40HDL Female: >60 <50LDL <100 130-159 >160LDL NEAR OPTIMAL IS 100-129 VLDL (test code=VLDL) 23 mg/dL 5-40 LDL/HDL (test code=LDLPHDL) 3 C-Reactive Protein, [id number] 11:35:00* Test Item Value Reference Range Comments CRP (test code=CRP) 10.6 mg/L 0.0-5.0 [id number] 11:35:00* Test Item Value Reference Range Comments Phosphorus (test code=PO4) 4.3 mg/dL 2.70-4.50 CK [id number] 11:35:00* Test Item Value Reference Range Comments CK (test code=CK) 357 U/L 39-308 Magnesium, [id number] 11:35:00* Test Item Value Reference Range Comments Magnesium (test code=MG) 1.5 mg/dL 1.7-2.5 Troponin [id number] 11:33:00* Test Item Value Reference Range Comments Troponin T (test code=BILL) 0.145 ng/mL 0.000-0.090 Elm-[id number] 11:33:00* Test Item Value Reference Range Comments NT ProBnp (test code=PBNP) 80547 pg/mL 0-124 Sed Rate ESR ([place])2018-02-01 11:16:00* Test Item Value Reference Range Comments ESR (test code=HESR) 104 mm/Hr 0-9 POC Glucose, [id number] 07:26:00* Test Item Value Reference Range Comments POC Glucose (test code=POCGLUC) 246 mg/dL 70-115 If you consider your patient critically ill, the Yoandy Accu-Chek InformII metershould not be used for Glucose determinations.Draw a venous Glucose and send to the Main Lab for Analysis. POC Glucose, [id number] 05:30:00* Test Item Value Reference Range Comments POC Glucose (test code=POCGLUC) 217 mg/dL 70-115 If you consider your patient critically ill, the Yoandy Accu-Chek InformII metershould not be used for Glucose determinations.Draw a venous Glucose and send to the Main Lab for Analysis. Occult [id number] 05:13:00* Test Item Value Reference Range Comments Occ Bld (test code=HSOB) Negative Negative [id number] 04:45:00* Test Item Value Reference Range Comments Potassium (test code=K) 5.5 mmol/L 3.5-5.1 Basic Metabolic [id number] 04:00:00* Test Item Value Reference Range Comments Sodium (test code=NA) 139 mmol/L 135-145 Potassium (test code=K) 6.1 mmol/L 3.5-5.1 READ BACK LAB VALUESVERIFIED BY REPEAT TESTINGP.Leonard @359am 02/01/2018 kms Chloride (test code=CL) 106 mmol/L 98-105 Carbon Dioxide (test code=CO2) 20 mmol/L 22-29 Glucose (test code=GLU) 229 mg/dL 70-115 Blood Urea Nitrogen (test code=BUN) 49 mg/dL 6-20 Creatinine (test code=CREAT) 2.9 mg/dL 0.7-1.2 Calcium (test code=CA) 8.1 mg/dL 8.3-10.5 BUN/Creatinine Ratio (test code=BCRATIO) 16.9 Anion Gap (test code=AGAP) 13 mmol/L 7-16 Estimated GFR (test code=GFR) 24 mL/min/1.73m2 eGFR (estimated Glomerular Filtration Rate) is an estimated value,calculated from the patient's serum creatinine using the MDRD equation.It is NOT the patient's actual GFR. The eGFR provides a more clinicallyuseful measure of kidney disease than serum creatinine alone.This calculation takes sex and race into account, if the informationis provided. If the race is not provided, and the patient isAfrican-Danish, multiply by 1.212. If sex is not provided, and thepatient is female, multiply by 0.742. Results for patients <18 years ofage have not been validated by the MDRD study and should be interpretedwith caution.eGFR Result Interpretation:eGFR > or=60 is in the Normal RangeeGFR < 60 may mean kidney diseaseeGFR < 15 may mean kidney failureRanges recommended by the National Kidney Foundat ion,http://nkdep.nih.gov [place] DUPLX MILTON PINZON ABD/JENNIFER/[id number] 01:13:23AFTER HOURS SERVICE ON: 02/01/2018 1:13 AMTesticular UltrasoundLocation Code [id number]: Follow-up CT enlarged left testes. Right orchiectomy as achild.Technique: Real-time hartman scale, Doppler spectral analysis and Dopplercolor flow evaluation was performed using a dedicated transducer.Findings:The right testis is surgically absent. Left testis measures 42 x 22 x40 mm. No intratesticular mass is seen. There is no decreased flow.Adequate arterial inflow and venous outflow noted.There is mild hydrocele. There is no varicocele.Left epididymis is unremarkabl e.Impression:Unremarkable testicular ultrasound of the left testes. History of r ightorchiectomy.POC Glucose, [id number] 01:07:00* Test Item Value Reference Range Comments POC Glucose (test code=POCGLUC) 253 mg/dL 70-115 Notify RN or MDIf you consider your patient critically ill, the Yoandy Accu-Chek InformII metershould not be used for Glucose determinations.Draw a venous Glucose and send to the Main Lab for Analysis. POC Glucose, [id number] 23:52:00* Test Item Value Reference Range Comments POC Glucose (test code=POCGLUC) 319 mg/dL 70-115 If you consider your patient critically ill, the Yoandy Accu-Chek InformII metershould not be used for Glucose determinations.Draw a venous Glucose and send to the Main Lab for Analysis. [address]& PELVIS W/O [id number] 23:05:09CT OF THE ABDOMEN AND PELVIS WITHOUT CONTRASTHistory: Abdominal painLocation R 16Comparison: CT abdomen pelvis 01/17/2018 Technique: Axial images wereobtained with coronal reconstruction. Radiation dose reduction techniquewas utilized.FINDINGS: Small pleural effusions lung bases are otherwise clear. Smallpericardial effusion.The liver spleen, pancreas, gallbladder, and adrenal glands are intact. The opacified and unopacified loops of bowel are unremarkable. Theappendix is unr emarkable. No ascites. Prominent calcification ofabdominal aorta.The right kidne y is surgically absent. Compensatory hypertrophy of theleft kidney. Left perinep hric and retroperitoneal stranding extendsinferiorly into the pelvis. Para-aorti c adenopathy has increased.Abdominal pelvic wall is intact. The prostate is mild ly enlarged andmeasures 45 mm in transverse diameter with dystrophic calcificati on.Enlarged lymph node posterior and to the left of the prostate. Seminalvesicle s unremarkable. The upper margin of the left testicle is seen inthe last image a nd appears enlarged. Physical examination recommended.The osseous structures are unremarkable for age.IMPRESSION:1. Increased para-aortic adenopathy.2. Lymph no de posterior and to the left of the prostate.3. The upper border of the left jeanie ticle is identified on the last imageof the series, and appears enlarged. Consid er sonographic evaluation.4. Right nephrectomy. Compensatory hypertrophy of left kidney. Leftperinephric stranding extends into the pelvis and is unchanged.5. S mall pleural effusions.POC Glucose, [id number] 23:04:00* Test Item Value Reference Range Comments POC Glucose (test code=POCGLUC) 204 mg/dL 70-115 If you consider your patient critically ill, the Yoandy Accu-Chek InformII metershould not be used for Glucose determinations.Draw a venous Glucose and send to the Main Lab for Analysis. Urinalysis [id number] 22:12:00* Test Item Value Reference Range Comments Color (test code=COLOR) Straw Yellow,Straw,Pl yellow Clarity (test code=CLAR) Clear Clear Specific [place] (test code=SPGR) 1.013 1.001-1.035 pH (test code=PH) 6.5 5.0-9.0 Ketone (test code=KET) Negative mg/dL Negative Glucose (test code=GLUCUR) 50 mg/dL Negative Protein (test code=PROT) 500 mg/dL Negative Bilirubin (test code=BILI) Negative mg/dL Negative Occult Blood (test code=UDOB) Mod to Large Negative Urobilinogen (test code=UROB) 0.2 mg/dL 0.2-1.0 Nitrite (test code=NIT) Negative Negative Leuk Esterase (test code=LEUK) Negative Negative Micros Exam (test code=MEXAM) Indicated Epithelial Cells (test code=EPI) 3-5 /LPF 0-30 WBC, Urine (test code=UWBC) 0-5 /HPF 0-5 RBC, Urine (test code=URBC) 31-40 /HPF 0-5 Bacteria (test code=BACT) Few /HPF Casts (test code=CASTS) 2-5 Epithelial 2-5 Hyaline 0-2 WBC /HPF Comprehensive Metabolic [id number] 21:04:00* Test Item Value Reference Range Comments Sodium (test code=NA) 140 mmol/L 135-145 Potassium (test code=K) 5.9 mmol/L 3.5-5.1 Chloride (test code=CL) 106 mmol/L 98-105 Carbon Dioxide (test code=CO2) 19 mmol/L 22-29 Glucose (test code=GLU) 157 mg/dL 70-115 Blood Urea Nitrogen (test code=BUN) 50 mg/dL 6-20 Creatinine (test code=CREAT) 3.1 mg/dL 0.7-1.2 Calcium (test code=CA) 8.1 mg/dL 8.3-10.5 Prot Total (test code=TP) 7.0 g/dL 6.4-8.3 Albumin (test code=ALB) 4.0 g/dL 3.5-5.2 A/G Ratio (test code=AGRATIO) 1.3 Ratio Globulin (test code=GLOB) 3.0 2.9-3.1 Bili Total (test code=TBIL) 0.2 mg/dL 0.1-0.9 Alk Phos (test code=APHOS) 72 U/L 40-129 AST (test code=AST) 17 U/L 1-40 ALT (test code=ALT) 12 U/L 1-41 BUN/Creatinine Ratio (test code=BCRATIO) 16.1 Anion Gap (test code=AGAP) 15 mmol/L 7-16 Estimated GFR (test code=GFR) 22 mL/min/1.73m2 eGFR (estimated Glomerular Filtration Rate) is an estimated value,calculated from the patient's serum creatinine using the MDRD equation.It is NOT the patient's actual GFR. The eGFR provides a more clinicallyuseful measure of kidney disease than serum creatinine alone.This calculation takes sex and race into account, if the informationis provided. If the race is not provided, and the patient isAfrican-Danish, multiply by 1.212. If sex is not provided, and thepatient is female, multiply by 0.742. Results for patients <18 years ofage have not been validated by the MDRD study and should be interpretedwith caution.eGFR Result Interpretation:eGFR > or=60 is in the Normal RangeeGFR < 60 may mean kidney diseaseeGFR < 15 may mean kidney failureRanges recommended by the National Kidney Foundat ion,http://nkdep.nih.gov [id number] 21:04:00* Test Item Value Reference Range Comments Lipase (test code=LIP) 78 U/L 13-60 CBC with [id number] 20:53:00* Test Item Value Reference Range Comments WBC (test code=WBC) 10.4 K/cumm 4.4-10.5 RBC (test code=RBC) 2.89 M/cumm 4.10-5.70 Hemoglobin (test code=HGB) 8.3 gm/dL 13.4-17.4 Hematocrit (test code=HCT) 25.6 % 38.7-52.0 MCV (test code=MCV) 88.8 fL 80-100 MCH (test code=MCH) 28.9 pg 27.0-32.5 MCHC (test code=MCHC) 32.5 g/dL 32.0-37.5 RDW (test code=RDW) 14.4 % 11.5-14.5 Platelet Count (test code=PLTCT) 280 K/cumm 140-440 MPV (test code=MPV) 6.9 fL Diff Method (test code=DIFFM) Auto Neutrophil (test code=NEUT) 80.9 % 36-70 Lymphocyte (test code=LYMPH) 12.5 % 12-44 Monocyte (test code=MONO) 4.1 % 0-11 Eosinophil (test code=EOS) 2.2 % 0-7 Basophil (test code=BASO) 0.3 % 0-2 Neutro Abs (test code=ANEUT) 8.4 K/cumm 1.6-7.4 Lymph Abs (test code=ALYMPH) 1.3 K/cumm 0.5-4.6 [place] Abs (test code=AMONO) 0.4 K/cumm 0.0-1.2 Eos Abs (test code=AEOS) 0.22 K/cumm 0.00-0.74 Baso Abs (test code=ABASO) 0.0 K/cumm 0.00-0.21 Hypochromic (test code=HYPO) Slight 67426& PELVIS W/O [id number] 02:26:23CT ABD & PELVIS W/O CONTRASTLocation:J8Kkxkn hours services provided 01/17/2018 2:26 AMIndication: Abd pain-B/L LQComparison:None availableTechnique: Axial CT images were acquired through the abdomen and pelviswithout contrast. All CT scans at this facility use dose modulation,iterative reconstruction, and/or weight-based dosing when appropriate toreduce radiation dose to as low as reasonably possible.Find ings:Lower thorax: Calcified atheromatous plaquing is seen within thecoronary ar teries. The lung bases appear clear.Hepatobiliary: The liver is normal in size a nd density. No intrahepaticbiliary duct dilatation is seen. The gallbladder is normal.Spleen, pancreas and adrenal glands: NormalUrogenital: The prostate is i rregularly shaped with abnormal loss of thenormal fat plane along the left poste rior lateral aspect. The rightkidney is not visualized and may be congenitally o r surgically absent.Compensatory hypertrophy of the left kidney is noted. No gogo dence ofhydronephrosis or hydroureter.Gastrointestinal: Trace amount of intra-ab dominal free fluid is notedtracking along the left paracolic gutter. No evidence of bowelobstruction or intra-abdominal free air. No significant diverticularcha nges are present. The appendix is not well seen.Lymph nodes in retroperitoneum: Innumerable abnormal retroperitoneallymph nodes are present the largest conglome ration is seen in image 69series 2 measuring 5.8 x 2.3 cm. There is an abnormal lymph node presentalong the left posterior lateral aspect of the prostate as see n in image1:15 series 2 measuring up to 16 mm in short axis. Findings areconcern ing for prostatic neoplasm with lymph node involvementBones and soft tissues: Ca lcified atheromatous plaquing within thearteries with no evidence of aneurysm. N o acute bony abnormalitiesvisualized.Impression: 1. Abnormal contour of the pros galeano with innumerable abnormal lymphnodes seen within the retroperitoneum and ad jacent to the prostate.These findings are concerning for prostatic neoplasm with lymphaticinvolvement.2. Congenital versus surgical absence of the right kidney withcompensatory hypertrophic changes of the left kidney.3. Nonspecific trace fr ee fluid tracking along the left paracolicgutter. No evidence of diverticular di sease or overlying colitis.CBC with [id number] 02:12:00* Test Item Value Reference Range Comments WBC (test code=WBC) 6.6 K/cumm 4.4-10.5 RBC (test code=RBC) 2.58 M/cumm 4.10-5.70 Hemoglobin (test code=HGB) 7.2 gm/dL 13.4-17.4 Hematocrit (test code=HCT) 22.8 % 38.7-52.0 MCV (test code=MCV) 88.4 fL 80-100 MCH (test code=MCH) 28.0 pg 27.0-32.5 MCHC (test code=MCHC) 31.7 g/dL 32.0-37.5 RDW (test code=RDW) 14.5 % 11.5-14.5 Platelet Count (test code=PLTCT) 216 K/cumm 140-440 MPV (test code=MPV) 7.1 fL Diff Method (test code=DIFFM) Auto Neutrophil (test code=NEUT) 75.2 % 36-70 Lymphocyte (test code=LYMPH) 17.3 % 12-44 Monocyte (test code=MONO) 6.1 % 0-11 Eosinophil (test code=EOS) 1.1 % 0-7 Basophil (test code=BASO) 0.2 % 0-2 Neutro Abs (test code=ANEUT) 5.0 K/cumm 1.6-7.4 Lymph Abs (test code=ALYMPH) 1.1 K/cumm 0.5-4.6 [place] Abs (test code=AMONO) 0.4 K/cumm 0.0-1.2 Eos Abs (test code=AEOS) 0.08 K/cumm 0.00-0.74 Baso Abs (test code=ABASO) 0.0 K/cumm 0.00-0.21 RBC Morphology (test code=RBCMRPH) Not Indicated Hypochromic (test code=HYPO) Slight Platelet Est (test code=PLTEST) Not Indicated Urinalysis [id number] 01:48:00* Test Item Value Reference Range Comments Color (test code=COLOR) Yellow Yellow,Straw,Pl yellow Clarity (test code=CLAR) Clear Clear Specific [place] (test code=SPGR) 1.015 1.001-1.035 pH (test code=PH) 5.0 5.0-9.0 Ketone (test code=KET) Negative mg/dL Negative Glucose (test code=GLUCUR) 50 mg/dL Negative Protein (test code=PROT) 500 mg/dL Negative Bilirubin (test code=BILI) Negative mg/dL Negative Occult Blood (test code=UDOB) Mod to Large Negative Urobilinogen (test code=UROB) 0.2 mg/dL 0.2-1.0 Nitrite (test code=NIT) Negative Negative Leuk Esterase (test code=LEUK) Negative Negative Micros Exam (test code=MEXAM) Indicated Epithelial Cells (test code=EPI) 6-9 /LPF 0-30 WBC, Urine (test code=UWBC) 0-1 /HPF 0-5 RBC, Urine (test code=URBC) 0-3 /HPF 0-5 Bacteria (test code=BACT) Few /HPF Casts (test code=CASTS) Few Granular /HPF Comprehensive Metabolic [id number] 01:36:00* Test Item Value Reference Range Comments Sodium (test code=NA) 138 mmol/L 135-145 Potassium (test code=K) 5.1 mmol/L 3.5-5.1 Chloride (test code=CL) 104 mmol/L 98-105 Carbon Dioxide (test code=CO2) 21 mmol/L 22-29 Glucose (test code=GLU) 112 mg/dL 70-115 Blood Urea Nitrogen (test code=BUN) 48 mg/dL 6-20 Creatinine (test code=CREAT) 2.6 mg/dL 0.7-1.2 Calcium (test code=CA) 8.3 mg/dL 8.3-10.5 Prot Total (test code=TP) 6.2 g/dL 6.4-8.3 Albumin (test code=ALB) 3.3 g/dL 3.5-5.2 A/G Ratio (test code=AGRATIO) 1.1 Ratio Globulin (test code=GLOB) 2.9 2.9-3.1 Bili Total (test code=TBIL) 0.3 mg/dL 0.1-0.9 Alk Phos (test code=APHOS) 64 U/L 40-129 AST (test code=AST) 14 U/L 1-40 ALT (test code=ALT) 8 U/L 1-41 BUN/Creatinine Ratio (test code=BCRATIO) 18.5 Anion Gap (test code=AGAP) 13 mmol/L 7-16 Estimated GFR (test code=GFR) 27 mL/min/1.73m2 eGFR (estimated Glomerular Filtration Rate) is an estimated value,calculated from the patient's serum creatinine using the MDRD equation.It is NOT the patient's actual GFR. The eGFR provides a more clinicallyuseful measure of kidney disease than serum creatinine alone.This calculation takes sex and race into account, if the informationis provided. If the race is not provided, and the patient isAfrican-Danish, multiply by 1.212. If sex is not provided, and thepatient is female, multiply by 0.742. Results for patients <18 years ofage have not been validated by the MDRD study and should be interpretedwith caution.eGFR Result Interpretation:eGFR > or=60 is in the Normal RangeeGFR < 60 may mean kidney diseaseeGFR < 15 may mean kidney failureRanges recommended by the National Kidney Foundat ion,http://nkdep.nih.gov [id number] 01:36:00* Test Item Value Reference Range Comments Lipase (test code=LIP) 36 U/L 13-60 POC Glucose, [id number] 10:30:00* Test Item Value Reference Range Comments POC Glucose (test code=POCGLUC) 132 mg/dL 70-115 If you consider your patient critically ill, the Yoandy Accu-Chek InformII metershould not be used for Glucose determinations.Draw a venous Glucose and send to the Main Lab for Analysis. Urinalysis [id number] 08:57:00* Test Item Value Reference Range Comments Color (test code=COLOR) Straw Yellow,Straw,Pl yellow Clarity (test code=CLAR) Clear Clear Specific [place] (test code=SPGR) 1.009 1.001-1.035 pH (test code=PH) 6.5 5.0-9.0 Ketone (test code=KET) Negative mg/dL Negative Glucose (test code=GLUCUR) Negative mg/dL Negative Protein (test code=PROT) 500 mg/dL Negative Bilirubin (test code=BILI) Negative mg/dL Negative Occult Blood (test code=UDOB) Moderate Negative Urobilinogen (test code=UROB) 0.2 mg/dL 0.2-1.0 Nitrite (test code=NIT) Negative Negative Leuk Esterase (test code=LEUK) Negative Negative Micros Exam (test code=MEXAM) Indicated Epithelial Cells (test code=EPI) 6-9 /LPF 0-30 WBC, Urine (test code=UWBC) 0-1 /HPF 0-5 RBC, Urine (test code=URBC) 0-3 /HPF 0-5 Bacteria (test code=BACT) None /HPF Comprehensive Metabolic [id number] 08:55:00* Test Item Value Reference Range Comments Sodium (test code=NA) 138 mmol/L 135-145 Potassium (test code=K) 4.9 mmol/L 3.5-5.1 Chloride (test code=CL) 100 mmol/L 98-105 Carbon Dioxide (test code=CO2) 24 mmol/L 22-29 Glucose (test code=GLU) 58 mg/dL 70-115 Blood Urea Nitrogen (test code=BUN) 43 mg/dL 6-20 Creatinine (test code=CREAT) 1.8 mg/dL 0.7-1.2 Calcium (test code=CA) 9.0 mg/dL 8.3-10.5 Prot Total (test code=TP) 7.3 g/dL 6.4-8.3 Albumin (test code=ALB) 4.3 g/dL 3.5-5.2 A/G Ratio (test code=AGRATIO) 1.4 Ratio Globulin (test code=GLOB) 3.0 2.9-3.1 Bili Total (test code=TBIL) 0.2 mg/dL 0.1-0.9 Alk Phos (test code=APHOS) 70 U/L 40-129 AST (test code=AST) 23 U/L 1-40 ALT (test code=ALT) 16 U/L 1-41 BUN/Creatinine Ratio (test code=BCRATIO) 23.9 Anion Gap (test code=AGAP) 14 mmol/L 7-16 Estimated GFR (test code=GFR) 42 mL/min/1.73m2 eGFR (estimated Glomerular Filtration Rate) is an estimated value,calculated from the patient's serum creatinine using the MDRD equation.It is NOT the patient's actual GFR. The eGFR provides a more clinicallyuseful measure of kidney disease than serum creatinine alone.This calculation takes sex and race into account, if the informationis provided. If the race is not provided, and the patient isAfrican-Danish, multiply by 1.212. If sex is not provided, and thepatient is female, multiply by 0.742. Results for patients <18 years ofage have not been validated by the MDRD study and should be interpretedwith caution.eGFR Result Interpretation:eGFR > or=60 is in the Normal RangeeGFR < 60 may mean kidney diseaseeGFR < 15 may mean kidney failureRanges recommended by the National Kidney Foundat ion,http://nkdep.nih.gov CK [id number] 08:55:00* Test Item Value Reference Range Comments CK (test code=CK) 379 U/L 39-308 Troponin [id number] 08:50:00* Test Item Value Reference Range Comments Troponin T (test code=BILL) 0.078 ng/mL 0.000-0.090 CBC with [id number] 08:30:00* Test Item Value Reference Range Comments WBC (test code=WBC) 8.1 K/cumm 4.4-10.5 RBC (test code=RBC) 3.61 M/cumm 4.10-5.70 Hemoglobin (test code=HGB) 10.9 gm/dL 13.4-17.4 Hematocrit (test code=HCT) 33.2 % 38.7-52.0 MCV (test code=MCV) 92.0 fL 80-100 MCH (test code=MCH) 30.1 pg 27.0-32.5 MCHC (test code=MCHC) 32.7 g/dL 32.0-37.5 RDW (test code=RDW) 14.4 % 11.5-14.5 Platelet Count (test code=PLTCT) 213 K/cumm 140-440 MPV (test code=MPV) 8.3 fL Diff Method (test code=DIFFM) Auto Neutrophil (test code=NEUT) 76.4 % 36-70 Lymphocyte (test code=LYMPH) 15.2 % 12-44 Monocyte (test code=MONO) 6.4 % 0-11 Eosinophil (test code=EOS) 1.6 % 0-7 Basophil (test code=BASO) 0.4 % 0-2 Neutro Abs (test code=ANEUT) 6.2 K/cumm 1.6-7.4 Lymph Abs (test code=ALYMPH) 1.2 K/cumm 0.5-4.6 [place] Abs (test code=AMONO) 0.5 K/cumm 0.0-1.2 Eos Abs (test code=AEOS) 0.13 K/cumm 0.00-0.74 Baso Abs (test code=ABASO) 0.0 K/cumm 0.00-0.21
[2019-01-23] MEDS ORDERED: ONDANSETRON HCL INJ 2MG/ML 2ML 2 MG/ML VIAL IV NR ×2 (18:15→20:30)
[2019-01-23] MEDS ORDERED: DIATRIZOATE MEGL/DIATRIZOA SOD 30 ML BTL PO ONE (18:17)
[2019-01-23 19:13] LABS: BILIRUBIN,URINE NEGATIVE (NEGATIVE); CLARITY,URINE SL CLOUDY (CLEAR); COLOR,URINE YELLOW (YELLOW); KETONES,URINE NEGATIVE (NEGATIVE); LEUKOCYTE ESTERASE ,URINE NEGATIVE (NEGATIVE); NITRITE,URINE NEGATIVE (NEGATIVE); PROTEIN,URINE DIPSTICK 2+ (NEGATIVE); URINE UROBILINOGEN 0.2 mg/dL (0.2 - 1)
[2019-01-23 19:23] LABS: AMORPHOUS SEDIMENT,URINE MODERATE (FEW); BACTERIA,URINE FEW /HPF
--- NOTE | 2019-01-23 19:41 | Diagnostic Imaging Report ---
EXAM: CT Abdomen and Pelvis WITHOUT contrast INDICATION: Abdominal pain. Nausea. Chronic kidney disease. Hypertension. Diabetes. Gastroparesis COMPARISON: None. TECHNIQUE: Abdomen and pelvis were scanned utilizing a multidetector helical scanner from the lung base to the pubic symphysis without administration of IV contrast. Absence of intravenous contrast decreases sensitivity for detection of focal lesions and vascular pathology. Coronal and sagittal reformations were obtained. Routine protocol was performed. IV CONTRAST: None ORAL CONTRAST: Water COMPLICATIONS: None RADIATION DOSE: Total DLP: 496.57 mGy*cm Estimated effective dose: (DLP x 0.015 x size factor) mSv CTDIvol has been reviewed. It is below the limits set by the Radiation Protocol Committee (RPC). Dose modulation, iterative reconstruction, and/or weight based adjustment of the mA/kV was utilized to reduce the radiation dose to as low as reasonably achievable. FINDINGS: LINES and TUBES: None. LOWER THORAX: Unremarkable HEPATOBILIARY: No focal hepatic lesions. No biliary ductal dilation. GALLBLADDER: No radio-opaque stones or sludge. No wall thickening. SPLEEN: No splenomegaly. PANCREAS: No focal masses or ductal dilatation. ADRENALS: No adrenal nodules KIDNEYS/URETERS: No hydronephrosis. No cystic or solid mass lesions. No stones. The right kidney is not seen. Left-sided perinephric fat stranding could be due to chronic medical renal disease or possibly pyelonephritis in the appropriate clinical context. GI TRACT: No abnormal distention, wall thickening, or evidence of bowel obstruction. Appendix is normal. Scattered diverticulosis without evidence of diverticulitis PELVIC ORGANS/BLADDER: Urinary bladder wall thickening. Coarse calcification in the prostate gland. Nonspecific fluid density along the superior left aspect of the urinary bladder could be arising from the left kidney. LYMPH NODES: Extensive periaortic and pelvic lymphadenopathy best seen on series 2 image 43 and 62 through 70 worrisome for malignancy. VESSELS: Scattered vascular calcification. PERITONEUM / RETROPERITONEUM: No free air or fluid. BONES: Scattered degenerative change. SOFT TISSUES: Unremarkable. IMPRESSION: Extensive periaortic and pelvic lymphadenopathy best seen on series 2 image 43 and 62 through 70 worrisome for malignancy. The right kidney is not seen. Left-sided perinephric fat stranding could be due to chronic medical renal disease or possibly pyelonephritis in the appropriate clinical context. Urinary bladder wall thickening. Coarse calcification in the prostate gland. Nonspecific fluid density along the superior left aspect of the urinary bladder could be arising from the left kidney. Signed by: Dr. Paul Ron M.D. on 01/23/2019 7:38 PM
[2019-01-23] MEDS ORDERED: MORPHINE SULFATE INJ 4 MG/ML INJ 1ML IV PRN (20:15)
[2019-01-23 20:28] LABS: BASOPHILS % 0.4 % (0.0-1.0); EOSINOPHILS # (AUTO) 0.1 (0.0-0.4); EOSINOPHILS % 0.8 % (0.0-6.0); HEMOGLOBIN 8.2 g/dL (14.0-18.0); LYMPHOCYTES # (AUTO) 0.8 (1.0-3.2); LYMPHOCYTES % 9.8 % (18.0-39.1); MEAN CORPUSCULAR HEMOGLOBIN 31.4 pg (28-32); MEAN CORPUSCULAR HGB CONC 31.5 g/dL (31-35); MEAN CORPUSCULAR VOLUME 99.6 fL (81-99); MONOCYTES # (AUTO) 0.8 (0.2-0.8); MONOCYTES % 9.3 % (4.4-11.3); NEUTROPHILS # (AUTO) 6.7 (2.1-6.9); NEUTROPHILS % 79.3 % (38.7-80.0); PLATELET COUNT 191 x10e3/uL (140-360); RED BLOOD COUNT 2.61 x10e6/uL (4.3-5.7)
[2019-01-23] MEDS ORDERED: HYDRALAZINE HCL 20 MG/ML VIAL IV NR (20:30)
[2019-01-23 20:44] LABS: AMYLASE 66 U/L (25-125); LIPASE 46 U/L (8-78)
[2019-01-23 20:48] LABS: ALBUMIN 3.6 g/dL (3.5-5.0); ALBUMIN/GLOBULIN RATIO 0.8 (0.8-2.0); ANION GAP 17.4 mmol/L (8-16); CALCIUM 8.7 mg/dL (8.4-10.2); CREATININE, SERUM 4.54 mg/dL (0.72-1.25)
[2019-01-23 20:49] LABS: POTASSIUM 5.4 mmol/L (3.5-5.1)
--- NOTE | 2019-01-23 20:54 | NUR ---
AWAKE ALERT SKIN W/D RESP NONLAB. NAD NOTED. DENIES PAIN AFTER MEDICATIONS
[2019-01-23] MEDS ORDERED: SODIUM BICARB IV SCH (22:15)
[2019-01-23] MEDS ORDERED: SODIUM CHLORIDE 0.45% IV SCH (22:15)
[2019-01-23] MEDS ORDERED: ONDANSETRON HCL INJ 2MG/ML 2ML 2 MG/ML VIAL IV PRN (22:30)
[2019-01-23] MEDS ORDERED: SODIUM CHLORIDE FLUSH 10 ML SYR INJ PRN (22:30)
[2019-01-23] MEDS ORDERED: DEXTROSE 50% SYRINGE 50 ML IV PRN (22:30)
[2019-01-23] MEDS ORDERED: SOD POLYSTYRENE SULFONATE SUSP 15 GM/60 ML BTL PO ONE (22:30)
--- OUTSIDE RECORDS SUMMARY | 2019-01-23 22:31 | XMS REPORT ---
Author [facility] Address Unknown Phone Unavailable Care Team Providers Care Traffic Investigator Name Role Phone JACQUELYNEARL Yumiko FRANCIS Unavailable Unavailable Payers Payer Name Policy Type [...] End Date/Time Encounter Type Admission Type Attending [facility] Care Facility Care Department Encounter ID 2018-09-29 00:00:00 2018-09-29 00:00:[address] [facility] [id number] 2018-03-30 00:00:00 2018-03-30 00:00:[address] [facility] [id number] 2018-02-23 00:00:00 2018-02-23 00:00:[address] [facility] [id number] 2018-02-20 00:00:00 2018-02-20 00:00:[address] [facility] [id number] 2018-02-16 00:00:00 2018-02-16 00:00:[address] [facility] [id number] 2018-02-16 00:00:00 2018-02-16 00:00:[address] [facility] [id number] 2018-02-10 00:00:00 2018-02-10 00:00:[address] [facility] [id number] 2018-01-24 00:00:00 2018-01-24 00:00:[address] [facility] [id number] 2018-01-24 00:00:00 2018-01-24 00:00:[address] [facility] [id number] 2018-01-18 00:00:00 2018-01-18 00:00:[address] [facility] [id number] 2018-01-17 00:00:00 2018-01-17 00:00:[address] [facility] [id number] 2018-01-16 00:00:00 2018-01-16 00:00:[address] [facility] [id number] 2018-01-12 00:00:00 2018-01-12 00:00:[address] [facility] [id number] 2018-01-11 00:00:00 2018-01-11 00:00:00 Outpatient [facility] [id number] 2018-01-11 00:00:00 2018-01-11 00:00:00 Outpatient [facility] [id number] 2018-01-11 00:00:00 2018-01-11 00:00:[address] [facility] [id number] 2018-01-10 00:00:00 2018-01-10 00:00:[address] [facility] [id number] 2018-01-09 00:00:00 2018-01-09 00:00:00 Outpatient [facility] [id number] 2018-01-04 00:00:00 2018-01-04 00:00:00 Outpatient [facility] [id number] 2017-12-26 13:57:42 2017-12-26 13:57:42 Outpatient [facility] [id number] 2017-12-26 00:00:00 2017-12-26 00:00:[address] [facility] [id number] 2017-12-19 00:00:00 2017-12-19 00:00:00 Outpatient [facility] [id number] 2017-12-19 00:00:00 2017-12-19 00:00:00 Outpatient [facility] [id number] 2017-12-14 00:00:00 2017-12-14 00:00:00 Outpatient [facility] [id number] 2017-12-06 00:00:00 2017-12-06 00:00:00 Outpatient [facility] [id number] 2017-11-24 10:53:06 2017-11-24 10:53:06 Outpatient [facility] [id number] 2017-11-24 09:34:49 2017-11-24 09:34:49 Outpatient [facility] [id number] 2017-11-24 09:34:37 2017-11-24 09:34:[address] [facility] [id number] 2017-11-24 08:17:57 2017-11-24 08:17:[address] [facility] [id number] Results Test Description Test Time Test Comments Text Results Atomic Results Result Comments CT ABDOMEN/PELVIS WO 2019-01-23 19:29:00 [place] [address] Patient Name: SAMINA SANCHEZ MR #: [id number] : 1960 Age/Sex: 58/M Req #: [id number] Adm Physician: Ordered by: FRANCIS KATZ MD Report #: [id number] Location: ER Room/Bed: Procedure: [id number] CT/CT ABDOMEN/PELVIS WO Exam Date: 01/23/19 Exam Time: 1919 REPORT STATUS: Signed EXAM: CT Abdomen and Pelvis WITHOUT contrast IND ICATION: Abdominal pain. Nausea. Chronic kidney disease. Hypertension. Diabetes. Gastroparesis COMPARISON: None. TECHNIQUE: Abdomen and pelvis were scanned utilizing a multidetector helical scanner from the lung base to the pubic symphysis without administration of IV contrast. Absence of intravenous contrast decreases sensitivity for detection of focal lesions and vascular pathology. Coronal and sagittal reformations were obtained. Routine protocol was performed. IV CONTRAST: None ORAL CONTRAST: Water COMPLICATIONS: None RADIATION DOSE: Total DLP: 496.57 mGy*cm Estimated effective dose: (DLP x 0.015 x size factor) mSv CTDIvol has been reviewed. It is below the limits set by the Radiation Protocol Committee (RPC). Dose modulation, iterative reconstruction, and/or weight based adjustment of the mA/kV was utilized to reduce the radiation dose to as low as reasonably achievable. FINDINGS: LINES and TUBES: None. LOWER THORAX: Unremarkable HEPATOBILIARY: No focal hepatic lesions. No biliary ductal dilation. GALLBLADDER: No radio- opaque stones or sludge. No wall thickening. SPLEEN: No splenomegaly. PANCREAS: No focal masses or ductal dilatation. ADRENALS: No adrenal nodules KIDNEYS/URETERS: No hydronephrosis. No cystic or solid mass lesions. No stones. The right kidney is not seen. Left-sided perinephric fat stranding could be due to chronic medical renal disease or possibly pyelonephritis in the appropriate clinical context. GI TRACT: No abnormal distention, wall thickening, or evidence of bowel obstruction. Appendix is normal. Scattered diverticulosis without evidence of diverticulitis PELVIC ORGANS/BLADDER: Urinary bladder wall thickening. Coarse calcification in the prostate gland. Nonspecific fluid density along the superior left aspect of the urinary bladder could be arising from the left kidney. LYMPH NODES: Extensive periaortic and pelvic lymphadenopathy best seen on series 2 image 43 and 62 through 70 worrisome for malignancy. VESSELS: Scattered vascular calcification. PERITONEUM / RETROPERITONEUM: No free air or fluid. BONES: Scattered degenerative change. SOFT TISSUES: Unremarkable. IMPRESSION: Extensive periaortic and pelvic lymphadenopathy best seen on series 2 image 43 and 62 through 70 worrisome for malignancy. The right kidney is not seen. Left-sided perinephric fat stranding could be due to chronic medical renal disease or possibly pyelonephritis in the appropriate clinical context. Urinary bladder wall thickening. Coarse calcification in the prostate gland. Nonspecific fluid density along the superior left aspect of the urinary bladder could be arising from the left kidney. Signed by: Dr. Paul Ron M.D. on 01/23/2019 7:38 PM Dictated By: PAUL RON MD, MD 37 Transcribed By: ONEL on 01/23/191937 COPY TO: FRANCIS KATZ MD
[2019-01-23] MEDS ORDERED: SODIUM BICARBONATE 8.4% SYRING 50 ML in SODIUM CHLORIDE 0.45% 1,000 ML IV ONE (23:15)
[2019-01-23] MEDS ORDERED: HYDRALAZINE HCL50 MG PO (23:22)
[2019-01-23] MEDS ORDERED: ATORVASTATIN CA40 MG PO (23:22)
[2019-01-23] MEDS ORDERED: METOCLOPRAMIDE H5 MG PO (23:22)
[2019-01-23] MEDS: CEFTRIAXONE SOD 1 GM/NS 50 ML 50 ML IV SCH (23:40)
[2019-01-24] VITALS (9 sets, daily range): BP systolic 156–191; BP diastolic 77–88
[2019-01-24] MEDS: HYDRALAZINE HCL 20 MG/ML VIAL IV PRN (00:35)
[2019-01-24 06:26] LABS: BASOPHILS % 0.3 % (0.0-1.0); EOSINOPHILS % 0.5 % (0.0-6.0); HEMATOCRIT 22.8 % (38.2-49.6); HEMOGLOBIN 7.1 g/dL (14.0-18.0); LYMPHOCYTES # (AUTO) 0.9 (1.0-3.2); LYMPHOCYTES % 14.4 % (18.0-39.1); MEAN CORPUSCULAR HEMOGLOBIN 30.5 pg (28-32); MEAN CORPUSCULAR HGB CONC 31.1 g/dL (31-35); MEAN CORPUSCULAR VOLUME 97.9 fL (81-99); MONOCYTES # (AUTO) 0.8 (0.2-0.8); NEUTROPHILS # (AUTO) 4.6 (2.1-6.9); NEUTROPHILS % 71.5 % (38.7-80.0); PLATELET COUNT 154 x10e3/uL (140-360); RED BLOOD COUNT 2.33 x10e6/uL (4.3-5.7); RED CELL DISTRIBUTION WIDTH 13.9 % (11.7-14.4)
[2019-01-24 06:47] LABS: ALBUMIN 2.9 g/dL (3.5-5.0); ALBUMIN/GLOBULIN RATIO 0.7 (0.8-2.0); ANION GAP 12.7 mmol/L (8-16); CALCIUM 8.3 mg/dL (8.4-10.2); CREATININE, SERUM 4.59 mg/dL (0.72-1.25); POTASSIUM 4.7 mmol/L (3.5-5.1)
--- NOTE | 2019-01-24 06:52 | NUR ---
SPOKE TO DR. MEADE AT THIS TIME REGARDING CONSULT. ALSO INFORMED OF PT HGB 7.1. NO NEW ORDERS.
[2019-01-24] MEDS: MORPHINE SULFATE INJ 4 MG/ML INJ 1ML IV PRN ×2 (07:13→17:35)
[2019-01-24] MEDS: INSULIN REGULAR, HUMAN 100 UNIT/1 ML 3ML VIAL SQ SCH ×4 (07:30→21:00)
--- NOTE | 2019-01-24 09:27 | Consultation ---
DATE OF CONSULTATION: 01/24/2019 UROLOGIC CONSULTATION Consultation was called by Dr. Salgado. CHIEF COMPLAINT AND REASON FOR CONSULTATION: Solitary kidney, kidney failure. HISTORY OF PRESENT ILLNESS: Mr. Mota is a 58-year-old male patient admitted to the hospital with abdominal pain for three days, 05/19. The patient denied dysuria, denied gross hematuria, denied seeing urologist previously. He has been told he has had one kidney, left one, since his . PAST MEDICAL HISTORY: Notable for hypertension; diabetes mellitus; stroke; gastroesophageal reflux disease; chronic anemia; chronic kidney disease, stage 4; born with one left kidney. MEDICATIONS: Please see MAR. ALLERGIES: NKDA. SOCIAL HISTORY: Not smoking or drinking. FAMILY HISTORY: Denied urologic stones or malignancies. REVIEW OF SYSTEMS: Noncontributory other than problems mentioned above for 12 organ systems. PHYSICAL EXAMINATION: GENERAL: Older than appearing, stated age male, currently in no acute distress. VITAL SIGNS: Temperature 98.5, pulse 76, respirations 18, and blood pressure 156/81. HEENT: Sclerae anicteric. NECK: Supple. BACK: Without costovertebral tenderness bilaterally. ABDOMEN: Soft, nontender, and nondistended. No palpable mass. No palpable hernias. No palpable adenopathy. : Normal male external genitalia. EXTREMITIES: No edema. NEUROLOGIC: Moves 4 extremities. PSYCH: Alert. Mood appropriate. SKIN: Intact. Normal color. PERTINENT LABORATORY DATA: Abdominal ultrasound revealing left perinephric fat stranding. Bladder wall thickening. Calcifications in the prostate. Hemoglobin 8.2, hematocrit 26, otherwise CBC normal. Chem 14 normal except for potassium of 5.4, chloride 108, creatinine of 4.54. Urinalysis; 5-10 whites, 10-20 reds. IMPRESSION: 1. Urinary tract infection. 2. Microscopic hematuria. 3. Chronic kidney disease, stage 4. 4. Abdominal pain. 5. Hypertension. 6. Anemia. PLAN: We will obtain a CT scan to evaluate prostatic calcifications as there is no result on the chart currently . The patient has been begun on broad-spectrum antibiotics. Agree with this until culture specific data is available. Electively, the patient will need cystoscopy. Thank you for allowing me to participate in the care of your patient. We will be happy to follow along with you. MD DESTINEE Lan/MODL /[id number] cc: MD Tesfaye Dash MD MTDD
--- NOTE | 2019-01-24 09:36 | NUR ---
SPOKE WITH DR. GRAMAJO REGARDING CT ABDOMINAL ON 01/23 ASKING IF IF HE WANTED TO REPEAT OR CANCEL.
--- NOTE | 2019-01-24 10:22 | Diagnostic Imaging Report ---
EXAMINATION: Renal ultrasound. CLINICAL HISTORY :Renal failure COMPARISON: CT abdomen and pelvis 01/23/2019 TECHNIQUE: Grayscale and color Doppler evaluation of the kidneys and bladder was performed in transverse and longitudinal planes. DISCUSSION: RIGHT KIDNEY: Absent LEFT KIDNEY: The left kidney measures 15.1 cm in length and shows normal echogenicity. No hydronephrosis, shadowing calculi or solid mass lesions. BLADDER: Unremarkable. Left ureteral jet is seen. IMPRESSION: Absent right kidney. Unremarkable sonographic appearance of the hypertrophic left kidney. Signed by: Dr. Jose Luis M.D. on 01/24/2019 10:19 AM
[2019-01-24] MEDS ORDERED: NON-FORMULARY MEDICATION (Hydralazine Hcl 50 MG) PO SCH (17:00)
[2019-01-24] MEDS ORDERED: HYDRALAZINE HCL 25 MG TAB PO SCH (17:00)
[2019-01-24] MEDS ORDERED: SODIUM CHLORIDE 0.9% 1000ML 1,000 ML IV SCH (19:00)
[2019-01-24 19:26] LABS: FERRITIN 250.63 ng/mL (21.81-274.66)
[2019-01-24 19:37] LABS: FOLATE 9.2 ng/mL (7.0-15.4)
[2019-01-24] MEDS: CARVEDILOL 12.5 MG TAB PO SCH (19:40)
[2019-01-24] MEDS: ATORVASTATIN 40 MG TAB PO SCH (20:04)
[2019-01-24] MEDS: METOCLOPRAMIDE HCL 10 MG TAB PO SCH (20:04)
[2019-01-24] MEDS ORDERED: NON-FORMULARY MEDICATION (Metoclopramide Hcl 5 MG) PO SCH (21:00)
[2019-01-24] MEDS: CEFTRIAXONE SOD 1 GM/NS 50 ML 50 ML IV SCH (21:24)
[2019-01-24] MEDS: HYDRALAZINE HCL 25 MG TAB PO SCH (21:24)
--- NOTE | 2019-01-24 23:32 | History and Physical ---
CHIEF COMPLAINT: Abdominal pain. HISTORY OF PRESENT ILLNESS: Mr. Mota is a 58-year-old male, who presented with suprapubic pain going on for three days. The patient reports that he has been diagnosed with chronic kidney disease and anemia. However, he did not have insurance and was not able to see any physicians. He denies any chest pain, nausea, vomiting, or diarrhea. REVIEW OF SYSTEMS: GENERAL: Denies any fever or chills. HEAD: Denies any head trauma. ENT: Denies any earache. CVS: Denies any chest pain. RESPIRATORY: Denies any shortness of breath. GI: Denies any nausea or vomiting. The rest of the review of systems are negative except as in HPI. PAST MEDICAL HISTORY: Hypertension, diabetes, hyperlipidemia, and chronic kidney disease. PAST SURGICAL HISTORY: He denies any surgeries. However, he has only one kidney. Right kidney is not seen on the CT scan. FAMILY AND SOCIAL HISTORY: He does not smoke. Does not drink. 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 PHYSICAL EXAMINATION: VITAL SIGNS: Temperature 97.6, pulse of 90, blood pressure 156/81, respiratory rate of 18, O2 saturation 94% on room air. HEENT: Head is atraumatic, normocephalic. NECK: Supple. CHEST: Clear to auscultation bilaterally. HEART: S1, S2 audible. ABDOMEN: Soft. Mild discomfort. NEUROLOGIC: Awake and alert. No focal neurologic deficit. LABORATORY DATA: White count of 6000, hemoglobin 7.1, platelets 154. Hemoglobin was 8.2 and now 7.1. Chemistry; sodium 136, potassium 5.4, chloride 108, creatinine is 4.59, BUN is 61, and bicarb is 19. Abdominal CT was done in the emergency room, which showed extensive periaortic and pelvic lymphadenopathy. The right kidney is not seen. Left-sided perinephric fat stranding could be chronic medical disease. Urinary bladder wall thickening. Coarse calcification in the prostate gland. ASSESSMENT: Mr. Mota is a 58-year-old male, who presented with abdominal pain, found to have extensive lymphadenopathy on CT scan and worsening renal failure. Current Problem: 1. Periaortic and pelvic lymphadenopathy. 2. Chronic kidney disease, possible acute worsening. 3. Metabolic acidosis secondary to chronic kidney disease. 4. Anemia, likely due to chronic disease. 5. Type 2 diabetes mellitus. 6. Hypertension. PLAN: 1. I will consult Nephrology for further recommendation about CKD. 2. Hematology consult for lymphadenopathy. 3. Urology consult for bladder thickening, prostate calcification. 4. IV antibiotics. 5. We will continue the patient on IV hydration for now. 6. Insulin sliding scale for diabetes. Start antihypertensive medications for hypertension. MD WILLY Pires/MODL /[id number]
[2019-01-25] VITALS (8 sets, daily range): BP systolic 128–147; BP diastolic 61–87
--- NOTE | 2019-01-25 00:02 | Consultation ---
DATE OF CONSULTATION: 01/24/2019 CONSULTING PHYSICIAN: Ngoc Harris MD, Hematology-Oncology service. REASON FOR CONSULTATION: Evaluation and management of the patient with pelvic lymphadenopathy and severe anemia. HISTORY OF PRESENTING ILLNESS: Mr. Mota is a very pleasant 58-year-old gentleman, who is very well-known to me as he is my clinic patient and has longstanding history of lymphadenopathy, for which he underwent workup in the past including biopsy, which remained nondiagnostic. He also has a history of hypertension, diabetes mellitus, stroke, gastroesophageal reflux disease, and chronic kidney disease, who is now admitted due to abdominal pain. Hematology-Oncology has been consulted to assist with the management due to anemia and pelvic lymphadenopathy. PAST MEDICAL HISTORY: 1. Hypertension. 2. Diabetes mellitus. 3. History of stroke. 4. Gastroesophageal reflux disease. 5. Chronic anemia. 6. Chronic kidney disease. 7. Solitary left kidney. 8. History of lymphadenopathy. 9. biopsy. PAST SURGICAL HISTORY: CT-guided biopsy of the retroperitoneal lymph node. SOCIAL HISTORY: Denies history of smoking, alcohol use, or illicit drug use. FAMILY HISTORY: Negative for malignancies. ALLERGIES: NO KNOWN DRUG ALLERGIES. CURRENT MEDICATIONS: Reviewed and as per electronic medical record. REVIEW OF SYSTEMS: A 14-point review of systems is negative, except as mentioned in the history of present illness PHYSICAL EXAMINATION: VITAL SIGNS: Reviewed and as per electronic medical record. HEENT: PERRLA. Extraocular movements intact. Head is atraumatic and normocephalic. NECK: Supple. CVS: S1, S2 audible. RESPIRATORY: Decreased bilateral air entry. ABDOMEN: Soft. Positive bowel sounds. EXTREMITIES: Negative edema. NEUROLOGIC: The patient is alert and awake. LABORATORY DATA: Reviewed and as per electronic medical record. ASSESSMENT AND PLAN: Mr. Mota is a very pleasant 58-year-old gentleman, who is very well-known to me as he is my clinic patient and has had longstanding history of lymphadenopathy, for which he underwent biopsy in the past, which remained nondiagnostic. Now, he presented with worsening abdominal pain, subsequently underwent CT scan of the abdomen and pelvis revealing extensive periaortic and pelvic lymphadenopathy as well as urinary bladder wall thickening. Hematology-Oncology has been consulted to assist with the management. I have reviewed the record and discussed at length with the patient about his current disease status and importance of further workup. Overall, it appears that pelvic and periaortic lymphadenopathy have progressed. At this point, recommendation would be to get baseline laboratory workup. He will probably require a repeat PET-CT scan in outpatient setting. We will see the activity of the lymph nodes. CT-guided biopsy is not good for lymphoproliferative disorder rather excisional biopsy is the gold standard, however, that can be determined on the PET-CT scan to see where else could it be present and easily biopsied. For now continue supportive care. The patient also has urinary bladder wall thickening with coarse calcification in the prostate gland with elevated PSA level. Thank you for the consult. I will continue to be available. Please call with questions. MD JOCELYNN Mello/MODL /[id number]
--- NOTE | 2019-01-25 00:48 | Consultation ---
DATE OF CONSULTATION: 01/24/2019 Renal Consultation REASON FOR CONSULTATION: Acute kidney injury on chronic kidney disease. HISTORY OF PRESENT ILLNESS: A 58-year-old male with history of stage 4 chronic kidney disease, solitary kidney, diabetes, hypertension, and gastroparesis, who presented to [facility] on 01/23/2019 with a 3-day history of abdominal pain, nausea, vomiting, and anorexia. The patient was noted to have kidney failure. Apparently, he had seen a nascar driver at the outside hospital, but never followed up and was told that he had stage 4 chronic kidney disease. The patient has a long history of poorly-controlled diabetes complicated by retinopathy, neuropathy, and gastroparesis. The patient was started on IV fluids. Nephrology and Urology consultations were called. REVIEW OF SYSTEMS: As above. Positive anorexia. Positive nausea. Positive weakness. Currently no vomiting. No chest pain. No diarrhea. No melena. No hematochezia. All other systems negative. PAST MEDICAL HISTORY: 1. Chronic kidney disease stage 4 with secondary to diabetes and solitary kidney. 2. Solitary kidney. 3. 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 4. Hypertension. 5. Diabetic gastroparesis. 6. History of CVA. 7. Anemia secondary to chronic kidney disease. PAST SURGICAL HISTORY: None. SOCIAL HISTORY: No tobacco. No alcohol. No IV drugs. FAMILY HISTORY: No family history of kidney disease. ALLERGIES: NO KNOWN DRUG ALLERGIES. CURRENT MEDICATIONS: See list. Includes ceftriaxone and Reglan. PHYSICAL EXAMINATION: VITAL SIGNS: Blood pressure 181/84, pulse 97.5, respiratory rate 16, temperature 97.5. GENERAL: No apparent distress. HEENT: Oropharynx is clear. No scleral icterus. No periorbital edema. NECK: Supple. No elevation in jugular venous pressure. No lymphadenopathy. CHEST: Clear to auscultation anteriorly bilaterally. CARDIOVASCULAR: Regular rhythm. No murmurs or rubs. ABDOMEN: Soft. Positive bowel sounds. No tenderness. No rebound. EXTREMITIES: No edema. No clubbing. No cyanosis. SKIN: Warm. IMAGING: CT scan shows no hydronephrosis, no stones. Right kidney is not seen. Left kidney with perinephric fat stranding, could be due to chronic medical renal disease or possible pyelonephritis. Extensive periaortic and pelvic lymphadenopathy worrisome for malignancy. Coarse calcification in the prostate gland. Renal ultrasound shows absent right kidney, unremarkable sonographic appearance of the hypertrophic left kidney. LABORATORY DATA: White count 6.37, hemoglobin 7.1, hematocrit 22.8, platelets 154. Sodium 138, potassium 4.7 and down from 5.4, chloride 111, CO2 is 19, BUN 61, creatinine 4.54, calcium 8.3, albumin 2.9. Urine cloudy, 2+ blood, 11-20 rbc's, 6-10 wbc's. Culture pending. ASSESSMENT AND PLAN: 1. Acute kidney injury on stage 4 chronic kidney disease versus stage 5 chronic kidney disease. The patient received IV fluids. His kidney function worsened. We will give some gentle more IV fluids. Check urine studies and avoid all nephrotoxic medications. If there is no improvement in his kidney function, we will initiate hemodialysis as some of his symptoms seem to be from uremia. 2. Anemia, suspect secondary to chronic kidney disease. We will check iron stores. We will start the patient on Epogen. 3. Hypertension. We will titrate blood pressure medications. 4. Hyperkalemia, improved with medical therapy. 5. Diabetes, per primary team. 6. Pyuria. Await for culture and sensitivity. Urology has been consulted. MD ALAN Dash/TEDDY /[id number]
[2019-01-25 01:03] LABS: CREATININE,URINE RANDOM 69.46 mg/dL (63-166)
[2019-01-25 05:50] LABS: BASOPHILS % 0.2 % (0.0-1.0); EOSINOPHILS # (AUTO) 0.1 (0.0-0.4); EOSINOPHILS % 2.3 % (0.0-6.0); HEMATOCRIT 21.8 % (38.2-49.6); LYMPHOCYTES # (AUTO) 0.8 (1.0-3.2); LYMPHOCYTES % 16.3 % (18.0-39.1); MEAN CORPUSCULAR HEMOGLOBIN 31.2 pg (28-32); MEAN CORPUSCULAR HGB CONC 31.2 g/dL (31-35); MONOCYTES # (AUTO) 0.7 (0.2-0.8); MONOCYTES % 12.8 % (4.4-11.3); NEUTROPHILS # (AUTO) 3.5 (2.1-6.9); PLATELET COUNT 136 x10e3/uL (140-360); RED BLOOD COUNT 2.18 x10e6/uL (4.3-5.7); RED CELL DISTRIBUTION WIDTH 13.9 % (11.7-14.4)
[2019-01-25 05:57] LABS: INR 1.14; PROTHROMBIN TIME 15.2 seconds (11.9-14.5)
[2019-01-25] MEDS: MORPHINE SULFATE INJ 4 MG/ML INJ 1ML IV PRN ×2 (05:58→19:10)
[2019-01-25] MEDS: HYDRALAZINE HCL 25 MG TAB PO SCH ×3 (05:58→21:11)
[2019-01-25 06:11] LABS: HEMOGLOBIN 6.8 g/dL (14.0-18.0)
[2019-01-25 06:14] LABS: ANION GAP 13.6 mmol/L (8-16); CREATININE, SERUM 4.09 mg/dL (0.72-1.25); POTASSIUM 4.6 mmol/L (3.5-5.1)
--- NOTE | 2019-01-25 06:28 | NUR ---
RN instructed to call assistance to the restroom or when trying to get OOB due to low HgB at 6.8. Patient is at high risk for fall. Patient verbalized to call for assistance when OOB.
[2019-01-25 06:40] LABS: TOTAL PROTEIN, URINE 409.9 mg/dL (1-14)
[2019-01-25] MEDS ORDERED: SODIUM CHLORIDE 0.9% 250ML 250 ML IV ONE (07:00)
--- NOTE | 2019-01-25 07:18 | NUR ---
PT ALERT RESP EVEN AND UNLABORED AT THIS TIME NO DISTRESS NOTED, PT IS HAVING HIS BLOOD DRAWN BY LAB AT THIS TIME, TOLERATED WELL, PT ABLE TO MAKE NEEDS KNOWN, CALL LIGHT IN REACH
[2019-01-25] MEDS: INSULIN REGULAR, HUMAN 100 UNIT/1 ML 3ML VIAL SQ SCH ×4 (07:30→20:59)
[2019-01-25] MEDS: METOCLOPRAMIDE HCL 10 MG TAB PO SCH ×4 (08:43→20:08)
[2019-01-25] MEDS: CARVEDILOL 12.5 MG TAB PO SCH ×2 (08:44→17:40)
[2019-01-25] MEDS ORDERED: NON-FORMULARY MEDICATION (Atorvastatin Calcium 40 MG) PO SCH (09:00)
[2019-01-25] MEDS ORDERED: SODIUM CHLORIDE 0.9% 250ML 250 ML ONE ×2 (10:33→15:03)
--- NOTE | 2019-01-25 10:50 | Progress Note ---
DATE: SUBJECTIVE: The patient is doing well, denying any complaints. Abdominal pain is improved. Reviewed Dr. Harris and Dr. Solis's note. PHYSICAL EXAMINATION: VITAL SIGNS: Temperature 98.4, pulse of 73, blood pressure 147/71. CHEST: Clear to auscultation bilaterally. Awake, alert. ABDOMEN: Soft, nontender. EXTREMITIES: Trace pedal edema. NEUROLOGIC: Awake, alert. No focal neurologic deficit. LABORATORY DATA: White count of 5.14, hemoglobin 6.8, platelets 136. Chemistries, sodium 137, potassium 4.6, BUN 57, creatinine 4.09. Dr. Solis's note and Dr. Harris note reviewed. ASSESSMENT AND PLAN: Mr. Mota is a 58-year-old male with chronic kidney disease, progressively getting worse with anemia, pelvic and para-aortic lymphadenopathy. Current problem: 1. Worsening chronic kidney disease. 2. Abdominal pain, pelvic and para-aortic lymphadenopathy. 3. Bladder wall thickening. 4. Calcification in the prostate. 5. Hypertension. PLAN: 1. Continue the IV fluids per Nephrology recommendation, possible hemodialysis. 2. Transfusion has been ordered. Heme-Onc has been following the patient. Possibly will end up getting dialysis per Nephrology. We will follow their recommendations. MD WILLY Pires/TEDDY /[id number]
--- NOTE | 2019-01-25 11:30 | NUR ---
pt 1st unit of PRBCs initiated by SUMANTH May RN, pt tolerating well, no c/o SOB , no flank pain , pt afebrile will cont to monitor. vital signs stable.
--- NOTE | 2019-01-25 11:45 | NUR ---
pt tolerating blood infusing well, no c/o SOB , no flank pain, pt talking on phone, pt afebrile will cont to monitor. vital signs stable.
[2019-01-25] MEDS: SODIUM BICARBONATE 650 MG TAB PO SCH (17:58)
--- NOTE | 2019-01-25 19:00 | NUR ---
report given to oncoming nurse, for cont care
[2019-01-25] MEDS: ATORVASTATIN 40 MG TAB PO SCH (20:08)
[2019-01-25] MEDS: CEFTRIAXONE SOD 1 GM/NS 50 ML 50 ML IV SCH (21:11)
[2019-01-26] VITALS (8 sets, daily range): BP systolic 141–179; BP diastolic 68–84
[2019-01-26] MEDS: MORPHINE SULFATE INJ 4 MG/ML INJ 1ML IV PRN ×3 (00:51→23:55)
[2019-01-26] MEDS: HYDRALAZINE HCL 25 MG TAB PO SCH ×3 (05:10→21:06)
[2019-01-26 06:36] LABS: BASOPHILS % 0.2 % (0.0-1.0); EOSINOPHILS # (AUTO) 0.1 (0.0-0.4); EOSINOPHILS % 2.9 % (0.0-6.0); HEMATOCRIT 25.2 % (38.2-49.6); LYMPHOCYTES # (AUTO) 0.8 (1.0-3.2); LYMPHOCYTES % 16.3 % (18.0-39.1); MEAN CORPUSCULAR HEMOGLOBIN 30.5 pg (28-32); MEAN CORPUSCULAR HGB CONC 31.7 g/dL (31-35); MEAN CORPUSCULAR VOLUME 96.2 fL (81-99); MONOCYTES # (AUTO) 0.7 (0.2-0.8); MONOCYTES % 13.8 % (4.4-11.3); NEUTROPHILS # (AUTO) 3.2 (2.1-6.9); NEUTROPHILS % 66.2 % (38.7-80.0); PLATELET COUNT 131 x10e3/uL (140-360); RED BLOOD COUNT 2.62 x10e6/uL (4.3-5.7); RED CELL DISTRIBUTION WIDTH 14.9 % (11.7-14.4)
[2019-01-26 07:14] LABS: ANION GAP 19.2 mmol/L (8-16); CALCIUM 7.9 mg/dL (8.4-10.2); CREATININE, SERUM 4.77 mg/dL (0.72-1.25); PHOSPHORUS 6.2 MG/DL (2.3-4.7); POTASSIUM 5.2 mmol/L (3.5-5.1)
--- NOTE | 2019-01-26 07:20 | NUR ---
RECEIVED PATIENT AND WALKING ROUNDS COMPLETE. PATIENT AWAKE RESTING IN BED AT THIS TIME. NO SIGNS OF DISTRESS. CALL LIGHT IN REACH, WILL CONTINUE TO MONITOR.
[2019-01-26] MEDS: INSULIN REGULAR, HUMAN 100 UNIT/1 ML 3ML VIAL SQ SCH ×4 (07:30→21:00)
[2019-01-26] MEDS: METOCLOPRAMIDE HCL 10 MG TAB PO SCH ×4 (08:55→21:06)
[2019-01-26] MEDS: SODIUM BICARBONATE 650 MG TAB PO SCH (08:56)
[2019-01-26] MEDS: CARVEDILOL 12.5 MG TAB PO SCH ×2 (08:56→16:42)
--- NOTE | 2019-01-26 10:23 | NUR ---
SPOKE WITH DR. MEADE REGARDING POTASSIUM 5.2. DIET CHANGED TO RENAL.
--- NOTE | 2019-01-26 12:38 | NUR ---
CASE MANAGEMENT ASSESSMENT Catalyst Recovery Operator to bedside to discuss plan of care with patient/family. CM/SW role and care transitions discussed. Anticipated discharge plan discussed along with duration of care. CM/SW discussed patients right to make decisions in care. CM/SW work hours given. Patient lives: with sister and nieces Admit/Transfer: thru ED Hospital/ER visits since last admit: 0 POA/Emergency contact: sister Rose Marie Woods [phone] Current/Previous Home Health: none PCP/Follow-up Care: Dr. Jackson - PCP; pt states he is going to call and make an appointment to see Dr. Harris after discharge Current/Previous DME: none Medications (referring to index hospitalization or the first time you were in the hospital) a. Were changes made in your medications when you were in the hospital on [date of index hospitalization]? n/a b. Did you understand the changes? n/a c. Were you able to obtain your new medications right away? n/a d. Were you able to take your medications like the doctor wanted you to? n/a e. Did the hospital give you an accurate, easy to understand list of medications when you left? n/a Scale of 1-10 how comfortable does patient feel with disease management in outpatient settin Other Services: none Employment Status: employed at [employer] Areas of Concerns: ESRD, UTI, anemia Referral Needs: may need HD Education Needs: medical management IMM/DUONG given and signed (if applicable): n/a Goal for discharge: home CM/SW left business card at the bedside with contact information. Name and number was also written on the patients whiteboard. Patient verbalized understanding of discussion. CM will follow-up with ongoing discharge and transition of care needs.
[2019-01-26] MEDS: ONDANSETRON HCL 4 MG ORAL DISINTEGRATING TAB PO PRN ×2 (13:51→23:50)
[2019-01-26] MEDS ORDERED: SOD POLYSTYRENE SULFONATE SUSP 15 GM/60 ML BTL PO ONE (16:30)
[2019-01-26] MEDS ORDERED: SODIUM CHLORIDE 0.9% 250ML 250 ML ONE (16:51)
[2019-01-26] MEDS: IRON SUCROSE 100 MG in SODIUM CHLORIDE 0.9% 100 ML 100 ML IV SCH (17:33)
--- NOTE | 2019-01-26 21:00 | NUR ---
Assessment done.no resp.distress.no pain voiced.had no bm.voided.bed locked and in lowest position.phone and call light within reach.instructed to call for assistance as needed.
[2019-01-26] MEDS: ATORVASTATIN 40 MG TAB PO SCH (21:06)
[2019-01-26] MEDS: CEFTRIAXONE SOD 1 GM/NS 50 ML 50 ML IV SCH (22:14)
--- NOTE | 2019-01-26 23:45 | NUR ---
New iv started @ right forearm #20 g .patent.
[2019-01-27] VITALS: BP 187/91
[2019-01-27] MEDS: HYDRALAZINE HCL 20 MG/ML VIAL IV PRN ×2 (01:14→11:49)
[2019-01-27 04:00] VITALS: BP 160/86
[2019-01-27] MEDS: ONDANSETRON HCL 4 MG ORAL DISINTEGRATING TAB PO PRN ×2 (04:35→09:03)
[2019-01-27] MEDS: HYDRALAZINE HCL 25 MG TAB PO SCH ×2 (05:29→14:13)
[2019-01-27 05:59] LABS: BASOPHILS % 0.5 % (0.0-1.0); EOSINOPHILS # (AUTO) 0.1 (0.0-0.4); EOSINOPHILS % 1.6 % (0.0-6.0); HEMATOCRIT 26.9 % (38.2-49.6); HEMOGLOBIN 8.4 g/dL (14.0-18.0); LYMPHOCYTES # (AUTO) 0.6 (1.0-3.2); LYMPHOCYTES % 9.9 % (18.0-39.1); MEAN CORPUSCULAR HGB CONC 31.2 g/dL (31-35); MEAN CORPUSCULAR VOLUME 96.1 fL (81-99); MONOCYTES # (AUTO) 0.7 (0.2-0.8); MONOCYTES % 11.5 % (4.4-11.3); NEUTROPHILS # (AUTO) 4.9 (2.1-6.9); PLATELET COUNT 151 x10e3/uL (140-360); RED CELL DISTRIBUTION WIDTH 14.4 % (11.7-14.4)
[2019-01-27 06:08] LABS: ANION GAP 14.8 mmol/L (8-16); CALCIUM 8.2 mg/dL (8.4-10.2); CREATININE, SERUM 4.8 mg/dL (0.72-1.25); POTASSIUM 4.8 mmol/L (3.5-5.1)
--- NOTE | 2019-01-27 06:18 | NUR ---
Bp checked noted 160/86 .
--- NOTE | 2019-01-27 06:50 | NUR ---
Report given to the oncoming rn.walking rounds done.stable condition.
--- NOTE | 2019-01-27 07:17 | NUR ---
RECEIVED PATIENT AWAKE SITTING UP IN BED NO SIGNS OF DISTRESS. CALL LIGHT IN REACH, WILL CONTINUE TO MONITOR.
[2019-01-27] MEDS: INSULIN REGULAR, HUMAN 100 UNIT/1 ML 3ML VIAL SQ SCH ×2 (07:30→11:30)
[2019-01-27 08:06] VITALS: BP 135/80
[2019-01-27] MEDS: METOCLOPRAMIDE HCL 10 MG TAB PO SCH ×2 (08:48→11:49)
[2019-01-27] MEDS: SODIUM BICARBONATE 650 MG TAB PO SCH (08:48)
[2019-01-27] MEDS: IRON SUCROSE 100 MG in SODIUM CHLORIDE 0.9% 100 ML 100 ML IV SCH (08:48)
[2019-01-27] MEDS: CARVEDILOL 12.5 MG TAB PO SCH (08:48)
[2019-01-27 09:06] VITALS: BP 172/79
[2019-01-27] MEDS ORDERED: LACTULOSE SYRUP 20 GM/30 ML UDC PO PRN ×2 (09:15→10:15)
[2019-01-27] MEDS ORDERED: ACETAMINOPHEN 325 MG TAB PO PRN (09:15)
--- NOTE | 2019-01-27 09:15 | NUR ---
PATIENT A/O X3, EVEN RESPIRATIONS ON RA. SKIN INTACT NO EDEMA. PATIENT AMBULATORY, VOIDS IN TOILET. RIGHT FA 20 GAUGE IV SALINE LOCKED. NO SIGNS OF DISTRESS. CALL LIGHT IN REACH WILL CONTINUE TO MONITOR.
[2019-01-27 13:35] VITALS: BP 192/93
--- NOTE | 2019-01-27 14:43 | NUR ---
REMOVED PATIENTS IV. CATHETER TIP INTACT AND PRESSURE DRESSING APPLIED.
--- NOTE | 2019-01-27 14:46 | NUR ---
PATIENT DISCHARGED FROM FACILITY. PATIENT GATHERED ALL PERSONAL BELONGINGS, DISCHARGE INSTRUCTIONS AND FOLLOW UP INFORMATION. PATIENT LEFT UNIT IN WHEELCHAIR AND WENT HOME VIA PRIVATE AUTO. NO SIGNS OF DISTRESS WHEN LEAVING FACILITY.
--- NOTE | 2019-01-27 21:07 | Discharge Summary ---
FINAL DIAGNOSES: 1. Chronic kidney disease, nearing dialysis. 2. Suprapubic pain which is resolved. 3. Urinary tract infection. 4. Anemia related to chronic kidney disease. 5. Periaortic and pelvic lymphadenopathy. ADMISSION HISTORY AND HOSPITAL COURSE: Mr. Mota is a 58-year-old male, who was admitted on 24 of January with complaints of suprapubic pain. He was diagnosed with CKD and anemia. He had been followed with Nephrology. He was found to be in renal failure. His creatinine was 4.54. Dr. Solis was consulted and he evaluated the patient. He recommended dialysis, however, the patient wanted to wait to decide on dialysis by Nephrology. I consulted Hematology for lymphadenopathy and Dr. Harris evaluated the patient. Urology was consulted for suprapubic pain and a calcification. They also recommended that the patient electively will need cystoscopy. All this was conveyed to the patient. He will be discharged home. He is cleared by all consultants. Discharge medication list reviewed. MD WILLY Pires/TEDDY /[id number]
== END 2019-01-27 14:45 | disposition home or self-care (01) | DRG 689 ==
LOC: ER 16:48 → ERHOLD 22:28 → MED/SURG 23:52
PROVIDERS: ADMIT Internal Medicine; ATTEND Internal Medicine
PROC: 30233N1 Transfusion of Nonautologous Red Blood Cells into Peripheral Vein, Percutaneous Approach (ICD-10-PCS; principal; 2019-01-25)
DX: N39.0 Urinary tract infection, site not specified (principal); N18.6 End stage renal disease; I12.0 Hypertensive chronic kidney disease with stage 5 chronic kidney disease or end stage renal disease; N17.9 Acute kidney failure, unspecified; Q60.0 Renal agenesis, unilateral; E86.0 Dehydration; E87.5 Hyperkalemia; Z99.2 Dependence on renal dialysis; D63.1 Anemia in chronic kidney disease; R59.1 Generalized enlarged lymph nodes; E11.22 Type 2 diabetes mellitus with diabetic chronic kidney disease
CPT/HCPCS: 36415; 74176; 76770; 80048; 80053; 81001; 82150; 82378; 82570; 82607; 82728; 82746; 82948; 83010; 83540; 83615; 83690; 84100; 84152; 84156; 84466; 85025; 85045; 85610; 85730; 86850; 86900; 86920; 87086; 99284; J0360; J0696; J1756; J2270; J2405; J7030; J7050; P9016

== ENCOUNTER 2019-02-18 13:28 | Inpatient (IN) | payer SELFPAY ==
[~2019-02-18] VITALS: Ht 177.8 cm; Wt 84.8 kg
[~2019-02-18 13:28] MED LIST: ATORVASTATIN CA40 MG PO; HYDRALAZINE HCL50 MG PO; METOCLOPRAMIDE H5 MG PO
[2019-02-18] MEDS ORDERED: MORPHINE SULFATE INJ 4 MG/ML INJ 1ML IV ONE (14:00)
[2019-02-18] MEDS ORDERED: HYDRALAZINE HCL 20 MG/ML VIAL IV ONE (14:15)
[2019-02-18 14:44] LABS: BASOPHILS % 0.5 % (0.0-1.0); EOSINOPHILS # (AUTO) 0.1 (0.0-0.4); EOSINOPHILS % 2.1 % (0.0-6.0); HEMATOCRIT 26.1 % (38.2-49.6); HEMOGLOBIN 8.4 g/dL (14.0-18.0); LYMPHOCYTES % 17.8 % (18.0-39.1); MEAN CORPUSCULAR HEMOGLOBIN 31.1 pg (28-32); MEAN CORPUSCULAR HGB CONC 32.2 g/dL (31-35); MEAN CORPUSCULAR VOLUME 96.7 fL (81-99); MONOCYTES # (AUTO) 0.7 (0.2-0.8); MONOCYTES % 11.7 % (4.4-11.3); NEUTROPHILS # (AUTO) 3.9 (2.1-6.9); NEUTROPHILS % 67.6 % (38.7-80.0); PLATELET COUNT 168 x10e3/uL (140-360); RED CELL DISTRIBUTION WIDTH 14.1 % (11.7-14.4)
--- NOTE | 2019-02-18 14:52 | Diagnostic Imaging Report ---
Foot complete CPT code: 54976 Indication: Redness and swelling to left foot ^rule out osteo to left great toe, pain redness with swelling ^[id number] ^[id number] Technique: A.P., oblique and lateral views of the left foot obtained. Comparison: None Findings: The area of pain is is the great toe. Calcaneus is intact with posterior and plantar spurs. The midfoot is intact with mild degenerative changes. No evidence of displaced fracture or dislocation involving any of the digits. No focal demineralization, periosteal new bone formation or erosive changes of the digits or elsewhere in the foot. No visualized skin ulcerations or radiopaque foreign bodies in the soft tissues. IMPRESSION: No radiographic evidence of osteomyelitis. Signed by: Dr. Carrol Schroeder MD on 02/18/2019 2:49 PM
--- NOTE | 2019-02-18 14:54 | Diagnostic Imaging Report ---
EXAMINATION: CHEST SINGLE (PORTABLE) COMPARISON: None INDICATION: Left foot swelling, no other history provided ^ERMD ORDER ^[id number] ^1435 ^Y DISCUSSION: Frontal view of the chest obtained at 1433 hours. HEART AND MEDIASTINUM: The heart is enlarged. The pulmonary arteries are prominent suggestive of pulmonary artery hypertension. LINES: None. LUNGS: Mildly diminished lung volumes with accentuation of the pulmonary vasculature. No infiltrates or interstitial thickening. PLEURA: No pleural effusion or pneumothorax. BONES AND SOFT TISSUES: No focal osseous lesion. The soft tissues are normal. IMPRESSION: Cardiomegaly and mild vascular congestion. Prominent pulmonary arteries suggestive of pulmonary artery hypertension. No infiltrates. Signed by: Dr. Carrol Schroeder MD on 02/18/2019 2:51 PM
[2019-02-18 15:09] LABS: ALBUMIN 3.4 g/dL (3.5-5.0); ALBUMIN/GLOBULIN RATIO 0.7 (0.8-2.0); ANION GAP 14.7 mmol/L (8-16); CALCIUM 8.4 mg/dL (8.4-10.2); CREATININE, SERUM 4.54 mg/dL (0.72-1.25); MAGNESIUM 1.7 MG/DL (1.3-2.1); POTASSIUM 5.7 mmol/L (3.5-5.1)
[2019-02-18 15:10] LABS: INR 1.1; PROTHROMBIN TIME 14.7 seconds (11.9-14.5)
[2019-02-18 15:11] LABS: PARTIAL THROMBOPLASTIN TIME 40.4 seconds (23.8-35.5)
[2019-02-18 15:16] LABS: CREATINE KINASE MB 7.3 ng/mL (0-5.0)
[2019-02-18] MEDS ORDERED: SODIUM CHLORIDE 0.9% 500ML 500 ML IV ONE (16:15)
[2019-02-18] MEDS ORDERED: VANCOMYCIN 1GM/NS 250 ML 250 ML IV ONE (17:00)
[2019-02-18] MEDS ORDERED: SOD POLYSTYRENE SULFONATE SUSP 15 GM/60 ML BTL PO ONE (17:00)
[2019-02-18] MEDS: CEFEPIME 1GM/NS 0.9% 50 ML 50 ML IV SCH (17:30)
[2019-02-18 17:36] LABS: CREATINE KINASE MB 6.4 ng/mL (0-5.0)
[2019-02-18 17:40] LABS: BILIRUBIN,URINE NEGATIVE (NEGATIVE); CLARITY,URINE CLEAR (CLEAR); COLOR,URINE YELLOW (YELLOW); KETONES,URINE NEGATIVE (NEGATIVE); LEUKOCYTE ESTERASE ,URINE NEGATIVE (NEGATIVE); NITRITE,URINE NEGATIVE (NEGATIVE); PROTEIN,URINE DIPSTICK 3+ (NEGATIVE); URINE UROBILINOGEN 0.2 mg/dL (0.2 - 1)
[2019-02-18] MEDS: HYDRALAZINE HCL 20 MG/ML VIAL IV PRN (17:46)
[2019-02-18 17:50] LABS: EPITHELIAL CELLS,URINE RARE /LPF; RBC,URINE 0-5 /HPF (0-5); WBC,URINE (MAN) 0-5 /HPF (0-5)
--- NOTE | 2019-02-18 18:20 | NUR ---
recd pt from er via w/c aaox 3,denies pain c/o nausea,iv to rac 20 gauge assisted pt to bed,hob elevated,call bermudez in reach
[2019-02-18] MEDS ORDERED: CLONIDINE HCL 0.1 MG TAB PO ONE (18:30)
[2019-02-18] MEDS: ONDANSETRON HCL INJ 2MG/ML 2ML 2 MG/ML VIAL IV PRN (18:34)
[2019-02-18] MEDS: MORPHINE SULFATE INJ 4 MG/ML INJ 1ML IV PRN (18:34)
[2019-02-18 18:45] VITALS: BP 164/77
--- NOTE | 2019-02-18 18:50 | NUR ---
Got report from previous nurse. call light within reach. Patient in bed.
[2019-02-18 20:00] VITALS: BP 155/79
[2019-02-18] MEDS ORDERED: DEXTROSE 50% SYRINGE 50 ML IV PRN (20:00)
[2019-02-18 20:24] VITALS: BP 155/79
[2019-02-18] MEDS: INSULIN LISPRO 100 UNIT/1 ML 3ML VIAL SQ SCH (21:00)
[2019-02-18] MEDS: METOCLOPRAMIDE HCL 10 MG TAB PO SCH (21:10)
[2019-02-18 21:28] VITALS: BP 155/79
[2019-02-19] VITALS (8 sets, daily range): BP systolic 138–164; BP diastolic 74–84
[2019-02-19 01:50] LABS: CREATINE KINASE MB 4.9 ng/mL (0-5.0)
[2019-02-19 06:16] LABS: BASOPHILS % 0.5 % (0.0-1.0); EOSINOPHILS # (AUTO) 0.1 (0.0-0.4); EOSINOPHILS % 1.9 % (0.0-6.0); HEMATOCRIT 24.1 % (38.2-49.6); LYMPHOCYTES # (AUTO) 1.3 (1.0-3.2); LYMPHOCYTES % 22.1 % (18.0-39.1); MEAN CORPUSCULAR HEMOGLOBIN 30.5 pg (28-32); MEAN CORPUSCULAR HGB CONC 31.5 g/dL (31-35); MEAN CORPUSCULAR VOLUME 96.8 fL (81-99); MONOCYTES # (AUTO) 0.6 (0.2-0.8); MONOCYTES % 10.9 % (4.4-11.3); NEUTROPHILS # (AUTO) 3.7 (2.1-6.9); NEUTROPHILS % 64.3 % (38.7-80.0); PLATELET COUNT 185 x10e3/uL (140-360); RED BLOOD COUNT 2.49 x10e6/uL (4.3-5.7); RED CELL DISTRIBUTION WIDTH 14.1 % (11.7-14.4)
[2019-02-19 06:31] LABS: HEMOGLOBIN 7.6 g/dL (14.0-18.0)
--- NOTE | 2019-02-19 06:32 | NUR ---
Called and left message for Dr. Hieu Simmons about patient's Hgb went from 8.4 to 7.6. Waiting for the Dr. Ivelisse Simmons to call me back
[2019-02-19 06:48] LABS: ALBUMIN/GLOBULIN RATIO 0.7 (0.8-2.0); ANION GAP 13.4 mmol/L (8-16); CALCIUM 8.4 mg/dL (8.4-10.2); CREATININE, SERUM 4.36 mg/dL (0.72-1.25); POTASSIUM 5.4 mmol/L (3.5-5.1)
[2019-02-19] MEDS: INSULIN LISPRO 100 UNIT/1 ML 3ML VIAL SQ SCH ×4 (07:30→21:00)
--- NOTE | 2019-02-19 07:37 | NUR ---
Gave report to oncoming nurse. Call light within reach. Patient in bed.
[2019-02-19] MEDS: ATORVASTATIN 40 MG TAB PO SCH (08:30)
[2019-02-19] MEDS: HYDRALAZINE HCL 25 MG TAB PO SCH ×2 (08:30→16:50)
[2019-02-19] MEDS: METOCLOPRAMIDE HCL 10 MG TAB PO SCH ×4 (08:30→21:55)
[2019-02-19 09:31] LABS: CREATINE KINASE MB 4.3 ng/mL (0-5.0)
--- NOTE | 2019-02-19 12:18 | NUR ---
Nutrition Screen Note RD Recommendation for Physician: - Continue Renal diet - Diet education provided 02/19 Plan of Care: RD following, monitoring for tolerance and adequacy Nutrition reason for involvement: Nutrition Risk Trigger- MST, Dx of CKD Primary Diagnose(s): cellulitis, CKD IV PMH: CKD, HTN, DM, hyperlipidemia Ht: 70 in Wt: 192 lb BMI: 27.5 kg/m2 IBW: [address] Assessment: (02/19) 58 YOM admitted for cellulitis of the knee and CKD stage IV. Pt seen today per MST score and dx of CKD. Pt reports good appetite and po intake [employer]. Pt denies any GI distress or wt loss, UBW of 192#- wt stable. Pt receptive to diet education at time of visit, provided with materials on CKD IV and DM. Pt educated on renal diet restrictions emphasizing Na, K, and Phos sources and the impacted of excessive intake on the kidneys and body. All questions answered at time of visit, education materials provided. Chart reviewed. Labs and meds reviewed, pt given Kayexalate for elevated potassium. Will monitor and continue to follow. Current Diet: Renal Malnutrition Evaluation (02/19/19) The patient does not meet criteria for a specified degree of malnutrition at this time. Will re-evaluate at follow-up as appropriate. Diet Education Needs Assessment: Diet education indicated, pt receptive and education provided 02/19. Learner(s): pt Barriers: none Cultural/Language Modifications: none Readiness: ready Method: handouts, discussion Topics: CKD IV and DM nutrition therapy Understanding/Compliance: fair Nutrition Care Level: Low Signed: Yani Stringer RD, LD, [facility]
[2019-02-19] MEDS: CEFEPIME 1GM/NS 0.9% 50 ML 50 ML IV SCH (16:50)
[2019-02-19] MEDS ORDERED: ACETAMINOPHEN 325 MG TAB PO PRN (17:15)
[2019-02-19] MEDS: EPOETIN ALFA 10000 UNIT/ML VIAL SC SCH (18:18)
--- NOTE | 2019-02-19 19:10 | NUR ---
rounded with free lance model nurse, patient aware of change and in no distress. call bermudez within reach and bed in lowest position
--- NOTE | 2019-02-19 19:44 | NUR ---
RECEIVED PT IN BED AOX3 .RESPIRATIONS ARE EVEN AND UN LABORED . LEFT LOWER LEG WITH CELLULITIS .CALL LIGHT WITH IN REACH .CONTINUE TO MONITOR
[2019-02-19] MEDS: OYST-CAL-D 500MG TABLET PO SCH (21:55)
--- NOTE | 2019-02-19 22:44 | Consultation ---
DATE OF CONSULTATION: REASON FOR CONSULTATION: Cellulitis. HISTORY OF PRESENT ILLNESS: This patient who is a 58-year-old with history of end-stage renal disease, UTI, and dehydration. The patient hypercholesterolemia, diabetes. The patient comes in to the emergency room with cellulitis, the left foot with redness and swelling. The patient denies any history of trauma. Denies a history of gout. He said when he first came here, the left leg was red and swollen. He was on antibiotic. He is feeling better already. PAST MEDICAL HISTORY: He does have renal disease, creatinine 4.36. He does have hypercholesterolemia. PAST SURGICAL HISTORY: He denies. ALLERGIES: NKA. SOCIAL HISTORY: There is no smoking, drug abuse, or alcohol abuse. FAMILY HISTORY: Otherwise, hypertension. REVIEW OF SYSTEMS: HEENT: Negative. PULMONARY: Negative. CARDIAC: Negative. : Negative. GI: Negative. SKIN: There is no other rash. PHYSICAL EXAMINATION: GENERAL: He is currently alert, oriented, does not seem to be in acute distress. VITAL SIGNS: Stable, currently afebrile. HEENT: Not icteric. NECK: Supple. CHEST: Clear. HEART: S1, S2. No S3, S4 or murmur. ABDOMEN: Soft. Bowel sounds present. No tenderness. EXTREMITIES: No edema. Left foot, there is some erythema and edema noted. IMPRESSION: 1. Patient's cellulitis of the left foot seems to be better. Continue vancomycin. 2. End-stage renal disease, obtain a trough on vancomycin dose as needed. 3. Anemia. We will follow. MD MELISSA Ball/TEDDY /[id number]
[2019-02-20] VITALS (10 sets, daily range): BP systolic 139–199; BP diastolic 72–93
--- NOTE | 2019-02-20 02:00 | Consultation ---
DATE OF CONSULTATION: REASON FOR CONSULT: Increased BUN and creatinine. HISTORY OF PRESENT ILLNESS: This is a 58-year-old male, who was recently admitted in January. Currently, he is back to the hospital and admitted with left toe infection. PAST MEDICAL HISTORY: Includes: 1. CKD, stage 4 secondary to diabetes and solitary kidney. 2. Solitary kidney. 3. Type 2 diabetes mellitus, complicated and neuropathy. 4. Hypertension. 5. Diabetic gastroparesis. 6. History of CVA. 7. Anemia of chronic disease. PAST SURGICAL HISTORY: None SOCIAL HISTORY: No smoking. No alcohol. No drugs. FAMILY HISTORY: Negative. ALLERGIES: NO KNOWN DRUG ALLERGIES. REVIEW OF SYSTEMS: All pertinent systems have been reviewed. The patient is positive for anorexia, left toe pain, and wound. Left foot swelling. Denies any nausea, vomiting, constipation. Denies any hematuria or any problem urinating. PHYSICAL EXAMINATION: GENERAL: Alert and following commands. HEENT: Pupils are equal and reactive to light and accommodation. NECK: No JVD. No bruits. LUNGS: No rhonchi. No rales. HEART: Regular rate and rhythm. No S3. No S4. ABDOMEN: Nontender and nondistended. No hepatomegaly or splenomegaly. EXTREMITIES: No clubbing, no cyanosis, no edema. VITAL SIGNS: Blood pressure 138/74 and pulse 77. MEDICATIONS: Include: 1. Tylenol. 2. Reglan. 3. Hydralazine. 4. Cefepime. 5. Morphine p.r.n. 6. Zofran p.r.n. 7. Hydralazine p.r.n. 8. Insulin. 9. The patient also receives clonidine and vancomycin. CURRENT LABS: White count 5.8, hemoglobin 7.6, and hematocrit 24.1. Sodium 136, potassium 5.4, chloride 110, CO2 of 18, BUN 53 and creatinine 4.36. GFR 14, hemoglobin 5.5, phosphorus 6.2, magnesium 1.7, iron 20, iron saturation 10, AST 12, , and albumin 3. Creatinine is at baseline. On it was 4.54. In January 27, it was 4.8. ASSESSMENT AND PLAN: 1. Chronic kidney disease, stage 5. The patient has been reluctant to start dialysis. For now the patient is starting to become acidotic and slightly hyperkalemic. The patient is wanting to continue this process by diet and conservative measurements until it is needed. The patient at this time, not volume overloaded and not hypocalcemic, so we will reevaluate labs in a.m. 2. Hyperphosphatemia. We will start the patient on calcium carbonate. 3. Metabolic acidosis. We will start the patient on sodium bicarbonate. 4. Anemia of chronic disease and iron deficiency. The patient will need iron, but at this time, he has an infection, so we will hold it, but we will also start him on Epogen. 5. Left foot cellulitis. Continue current antibiotics. We will adjust dose as needed. Bola Landers MD MA/TEDDY /[id number]
[2019-02-20] MEDS: MORPHINE SULFATE INJ 4 MG/ML INJ 1ML IV PRN ×2 (05:09→16:02)
[2019-02-20 05:55] LABS: BASOPHILS % 0.4 % (0.0-1.0); EOSINOPHILS # (AUTO) 0.1 (0.0-0.4); EOSINOPHILS % 2.4 % (0.0-6.0); HEMATOCRIT 23.2 % (38.2-49.6); HEMOGLOBIN 7.4 g/dL (14.0-18.0); LYMPHOCYTES # (AUTO) 0.8 (1.0-3.2); MEAN CORPUSCULAR HEMOGLOBIN 31.1 pg (28-32); MEAN CORPUSCULAR HGB CONC 31.9 g/dL (31-35); MEAN CORPUSCULAR VOLUME 97.5 fL (81-99); MONOCYTES # (AUTO) 0.5 (0.2-0.8); NEUTROPHILS # (AUTO) 3.4 (2.1-6.9); NEUTROPHILS % 68.8 % (38.7-80.0); PLATELET COUNT 150 x10e3/uL (140-360); RED BLOOD COUNT 2.38 x10e6/uL (4.3-5.7)
--- NOTE | 2019-02-20 05:56 | NUR ---
PT C/O PAIN AND GIVEN ORDERED PAIN MEDICATION PT RESTING .CALL LIGHT WITH IN REACH .CONTINUE TO MONITOR
[2019-02-20 06:10] LABS: ANION GAP 12.8 mmol/L (8-16); CALCIUM 8.6 mg/dL (8.4-10.2); CREATININE, SERUM 4.55 mg/dL (0.72-1.25); POTASSIUM 4.8 mmol/L (3.5-5.1)
--- NOTE | 2019-02-20 07:00 | NUR ---
PATIENT IS AWAKE, ALERT, AND IN STABLE CONDITION WITH NO S/S OF RESPIRATORY DISTRESS. NO PAIN VOICED. CALL LIGHT IS WITHIN REACH, PATIENT INSTRUCTED TO CALL FOR ASSISTANCE NEEDED.
[2019-02-20] MEDS: INSULIN LISPRO 100 UNIT/1 ML 3ML VIAL SQ SCH ×4 (07:30→21:00)
--- NOTE | 2019-02-20 07:30 | NUR ---
REPORT GIVEN TO THE ONCOMING NURSE
[2019-02-20] MEDS: METOCLOPRAMIDE HCL 10 MG TAB PO SCH ×4 (08:52→21:00)
[2019-02-20] MEDS: ATORVASTATIN 40 MG TAB PO SCH (08:53)
[2019-02-20] MEDS: HYDRALAZINE HCL 25 MG TAB PO SCH ×2 (08:53→16:02)
[2019-02-20] MEDS: OYST-CAL-D 500MG TABLET PO SCH ×3 (08:53→21:00)
[2019-02-20] MEDS: SODIUM BICARBONATE 650 MG TAB PO SCH ×2 (08:53→16:02)
[2019-02-20] MEDS: HYDRALAZINE HCL 20 MG/ML VIAL IV PRN ×2 (12:22→21:30)
[2019-02-20] MEDS: ONDANSETRON HCL INJ 2MG/ML 2ML 2 MG/ML VIAL IV PRN ×2 (12:22→16:42)
--- NOTE | 2019-02-20 12:45 | NUR ---
SPOKE WITH CORBIN SALINAS, P.A. REGARDING RANDOM VANCO OF 6.2; NEW ORDER TO GIVE 1GM OF VANCOMYCIN TODAY AND OBTAIN A RANDOM VANCOMYCIN TOMORROW, 02/21/19
[2019-02-20] MEDS ORDERED: SODIUM CHLORIDE 0.9% 250ML 250 ML ONE ×2 (13:18→23:49)
[2019-02-20] MEDS ORDERED: VANCOMYCIN 1GM/NS 250 ML 250 ML IV ONE (13:30)
--- NOTE | 2019-02-20 15:44 | NUR ---
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
[2019-02-20] MEDS: CEFEPIME 1GM/NS 0.9% 50 ML 50 ML IV SCH (16:02)
[2019-02-20] MEDS ORDERED: SODIUM CHLORIDE 0.9% 250ML 250 ML IV ONE (18:00)
[2019-02-20] MEDS ORDERED: FUROSEMIDE INJ 10 MG/ML 2 ML VIAL IV PRN (18:00)
--- NOTE | 2019-02-20 19:15 | NUR ---
PATIENT IS IN STABLE CONDITION WITH NO S/S OF RESPIRATORY DISTRESS. NO PAIN VOICED. 02 APPLIED. IV FLUIDS INFUSING. BED ALARM ON. CALL LIGHT IS WITHIN REACH, PATIENT INSTRUCTED TO CALL FOR ASSISTANCE NEEDED. BEDSIDE REPORT GIVEN TO ONCOMING NURSE. Addendum: 02/20/19 at 1920 by Pema Freedman RN AMEND NOTE: PATIENT IS IN STABLE CONDITION WITH NO S/S OF RESPIRATORY DISTRESS. NO PAIN VOICED. CALL LIGHT IS WITHIN REACH, PATIENT INSTRUCTED TO CALL FOR ASSISTANCE NEEDED. BEDSIDE REPORT GIVEN TO ONCOMING NURSE.
--- NOTE | 2019-02-20 19:39 | NUR ---
RECEIVED PT SITTING AT THE SIDE OF THE BED .ORDER TO TRANSFUSE 2 UNIT OF PRBC .CALL LIGHT WITH IN REACH .CONTINUE TO MONITOR
[2019-02-21] MEDS: ONDANSETRON HCL 4 MG ORAL DISINTEGRATING TAB PO PRN ×2 (01:21→16:35)
[2019-02-21] MEDS: MORPHINE SULFATE INJ 4 MG/ML INJ 1ML IV PRN ×4 (03:16→08:46)
[2019-02-21] MEDS ORDERED: SODIUM CHLORIDE 0.9% 250ML 250 ML ONE (03:40)
[2019-02-21 04:33] VITALS: BP 173/83
[2019-02-21] MEDS: HYDRALAZINE HCL 20 MG/ML VIAL IV PRN (06:32)
--- NOTE | 2019-02-21 06:33 | NUR ---
TRANSFUSED 2 UNIT OF BLOOD DURING THE SHIFT .NO REACTION NOTED B/P HIGH GIVEN HYDRAZINE CONTINUE TO MONITOR
[2019-02-21 07:30] VITALS: BP 169/79
[2019-02-21] MEDS: INSULIN LISPRO 100 UNIT/1 ML 3ML VIAL SQ SCH ×3 (07:30→16:30)
--- NOTE | 2019-02-21 07:30 | NUR ---
The pt. is awake in bed and denies pain or discomfort at this time. He reports that he feels tired as he was awake most of the night receiving blood transfusions. The bed rails are elevated and the bed is in low position.
[2019-02-21 07:57] VITALS: BP 169/79
[2019-02-21] MEDS: METOCLOPRAMIDE HCL 10 MG TAB PO SCH ×3 (08:00→16:32)
[2019-02-21] MEDS: ATORVASTATIN 40 MG TAB PO SCH (08:45)
[2019-02-21] MEDS: HYDRALAZINE HCL 25 MG TAB PO SCH ×2 (08:45→16:32)
[2019-02-21] MEDS: SODIUM BICARBONATE 650 MG TAB PO SCH ×2 (08:45→16:32)
[2019-02-21] MEDS: OYST-CAL-D 500MG TABLET PO SCH ×2 (08:45→16:31)
[2019-02-21 12:10] VITALS: BP 157/76
--- NOTE | 2019-02-21 13:00 | NUR ---
The pt. expressed the desire to go home as his toe no longer hurts. I explained to the pt. that just because he no longer has pain does not mean he is cured. He requested that I check with his dr's to okay discharge as he can't afford to remain in hospital.
--- NOTE | 2019-02-21 14:50 | NUR ---
Dr. Ivelisse Simmons returned the call and referred to Dr. Hair for further orders. A call was placed to for dispensation of the pt.
--- NOTE | 2019-02-21 15:19 | NUR ---
Dr. Hair returned the call and reported that the pt. can go home with p o doxycycline but he needs to wait until Dr. Simmons rounds.
[2019-02-21 15:59] VITALS: BP 192/95
[2019-02-21] MEDS: CEFEPIME 1GM/NS 0.9% 50 ML 50 ML IV SCH (16:32)
[2019-02-21] MEDS: EPOETIN ALFA 10000 UNIT/ML VIAL SC SCH (17:45)
[2019-02-21] MEDS ORDERED: DOXYCYCLINE HY100 MG PO (17:50)
[2019-02-21 17:51] LABS: BASOPHILS % 0.2 % (0.0-1.0); EOSINOPHILS # (AUTO) 0.1 (0.0-0.4); EOSINOPHILS % 0.6 % (0.0-6.0); HEMATOCRIT 29.1 % (38.2-49.6); HEMOGLOBIN 9.7 g/dL (14.0-18.0); LYMPHOCYTES # (AUTO) 0.9 (1.0-3.2); LYMPHOCYTES % 9.9 % (18.0-39.1); MEAN CORPUSCULAR HEMOGLOBIN 31.1 pg (28-32); MEAN CORPUSCULAR HGB CONC 33.3 g/dL (31-35); MEAN CORPUSCULAR VOLUME 93.3 fL (81-99); MONOCYTES % 11.8 % (4.4-11.3); NEUTROPHILS # (AUTO) 6.6 (2.1-6.9); PLATELET COUNT 170 x10e3/uL (140-360); RED BLOOD COUNT 3.12 x10e6/uL (4.3-5.7); RED CELL DISTRIBUTION WIDTH 14.6 % (11.7-14.4)
--- NOTE | 2019-02-21 19:06 | NUR ---
The pt. has discharged home in stable condition with prescription, follow up ,instructions and information about new medication. He was advised to call the dr. immediately if he notices any increase in redness or swelling in the great toe.
[2019-02-22] MEDS ORDERED: VANCOMYCIN 1GM/NS 250 ML 250 ML IV SCH (10:30)
== END 2019-02-21 18:18 | disposition home or self-care (01) | DRG 638 ==
LOC: ER 13:28 → ERHOLD 16:07 → MED/SURG3 18:15
DX: E11.628 Type 2 diabetes mellitus with other skin complications (principal); L03.116 Cellulitis of left lower limb; I12.0 Hypertensive chronic kidney disease with stage 5 chronic kidney disease or end stage renal disease; E87.2 Acidosis; L03.115 Cellulitis of right lower limb; N18.6 End stage renal disease; D63.1 Anemia in chronic kidney disease; D50.9 Iron deficiency anemia, unspecified; E83.39 Other disorders of phosphorus metabolism; E11.22 Type 2 diabetes mellitus with diabetic chronic kidney disease
CPT/HCPCS: 36415; 71045; 80048; 80053; 80202; 81001; 82550; 82553; 82948; 83036; 83605; 83735; 84484; 85025; 85610; 85730; 86850; 86900; 86920; 87040; 87086; 93005; 93971; 99284; J0360; J0692; J1940; J2270; J2405; J3370; J7040; J7050; P9016; Q4081

== ENCOUNTER 2019-03-21 19:07 | Inpatient (IN) | payer BC, OTHER ==
[~2019-03-21] VITALS: Ht 177.8 cm; Wt 85.5 kg
[~2019-03-21 19:07] MED LIST changes: +DOXYCYCLINE HY100 MG PO
[2019-03-21] MEDS ORDERED: SODIUM CHLORIDE 0.9% 1000ML 1,000 ML IV STA (19:47)
[2019-03-21 19:55] LABS: BASOPHILS % 0.3 % (0.0-1.0); EOSINOPHILS # (AUTO) 0.1 (0.0-0.4); EOSINOPHILS % 0.9 % (0.0-6.0); HEMATOCRIT 26.5 % (38.2-49.6); HEMOGLOBIN 8.6 g/dL (14.0-18.0); LYMPHOCYTES # (AUTO) 1.2 (1.0-3.2); LYMPHOCYTES % 16.2 % (18.0-39.1); MEAN CORPUSCULAR HGB CONC 32.5 g/dL (31-35); MEAN CORPUSCULAR VOLUME 92.3 fL (81-99); MONOCYTES # (AUTO) 0.8 (0.2-0.8); NEUTROPHILS # (AUTO) 5.4 (2.1-6.9); NEUTROPHILS % 71.2 % (38.7-80.0); PLATELET COUNT 173 x10e3/uL (140-360); RED BLOOD COUNT 2.87 x10e6/uL (4.3-5.7); RED CELL DISTRIBUTION WIDTH 13.7 % (11.7-14.4)
[2019-03-21 20:14] LABS: ALBUMIN 3.4 g/dL (3.5-5.0); ALBUMIN/GLOBULIN RATIO 0.7 (0.8-2.0); ANION GAP 17.6 mmol/L (8-16); CALCIUM 8.7 mg/dL (8.4-10.2); CREATININE, SERUM 5.86 mg/dL (0.72-1.25); POTASSIUM 5.6 mmol/L (3.5-5.1)
[2019-03-21] MEDS ORDERED: ONDANSETRON HCL INJ 2MG/ML 2ML 2 MG/ML VIAL IV ONE (20:29)
[2019-03-21 20:42] LABS: BILIRUBIN,URINE NEGATIVE (NEGATIVE); CLARITY,URINE CLEAR (CLEAR); COLOR,URINE YELLOW (YELLOW); KETONES,URINE NEGATIVE (NEGATIVE); LEUKOCYTE ESTERASE ,URINE NEGATIVE (NEGATIVE); NITRITE,URINE NEGATIVE (NEGATIVE); URINE UROBILINOGEN 0.2 mg/dL (0.2 - 1)
[2019-03-21 20:44] LABS: PROTEIN,URINE DIPSTICK 2+ (NEGATIVE)
[2019-03-21 20:55] LABS: AMORPHOUS SEDIMENT,URINE MODERATE (FEW); BACTERIA,URINE FEW /HPF; EPITHELIAL CELLS,URINE FEW /LPF; WBC,URINE (MAN) 0-5 /HPF (0-5)
[2019-03-21] MEDS ORDERED: INSULIN REGULAR, HUMAN 100 UNIT/1 ML 3ML VIAL IV ONE (21:15)
[2019-03-21] MEDS ORDERED: DEXTROSE 50% SYRINGE 50 ML IV ONE (21:15)
[2019-03-21] MEDS ORDERED: SOD POLYSTYRENE SULFONATE SUSP 15 GM/60 ML BTL PO ONE (21:15)
[2019-03-21] MEDS ORDERED: ONDANSETRON HCL INJ 2MG/ML 2ML 2 MG/ML VIAL IV PRN (22:00)
[2019-03-21] MEDS ORDERED: ONDANSETRON HCL INJ 2MG/ML 2ML 2 MG/ML VIAL IV STA (22:00)
[2019-03-21] MEDS: MORPHINE SULFATE INJ 4 MG/ML INJ 1ML IV PRN (22:50)
--- NOTE | 2019-03-21 23:37 | NUR ---
Patient arrived on the unit via wheelchair from ED to Rm [id number]. Patient alert and oriented x3. No distress or discomfort noted. Pt with admitting dx of Renal Failure. Pt ambulatory prn. Pt uses urinal prn. IV saline locked. Call bermudez within reach. Will monitor closely.
[2019-03-22] VITALS (7 sets, daily range): BP systolic 140–168; BP diastolic 66–81
--- NOTE | 2019-03-22 00:18 | NUR ---
Attempted to call Dr. Lockhart but no response. Nurse (Raphael) left voice message for Dr. Lockhart to inform patient's blood pressure elevated (168/80). Awaiting on MD call back.
[2019-03-22 06:10] LABS: ALBUMIN 2.7 g/dL (3.5-5.0); ALBUMIN/GLOBULIN RATIO 0.6 (0.8-2.0); ANION GAP 14.5 mmol/L (8-16); CALCIUM 8.1 mg/dL (8.4-10.2); CREATININE, SERUM 5.38 mg/dL (0.72-1.25); MAGNESIUM 1.7 MG/DL (1.3-2.1); PHOSPHORUS 7.1 MG/DL (2.3-4.7); POTASSIUM 4.5 mmol/L (3.5-5.1)
--- NOTE | 2019-03-22 07:30 | NUR ---
change of shift report at bedside given by Raphael Yancey RN, pt is resting comfortably in bed and in no acute distress noted. Pt denies pain instructed to notify this nurse for c/o pain or discomfort. Pt verbalized understanding. Call light is within reach and bed in lowest position.
[2019-03-22] MEDS ORDERED: HYDROCODONE/APAP 5MG-325MG TAB PO PRN (11:45)
[2019-03-22] MEDS ORDERED: SODIUM CHLORIDE 0.9% 1000ML 1,000 ML IV SCH (11:45)
--- NOTE | 2019-03-22 13:35 | Diagnostic Imaging Report ---
Abdomen, two views. History: Abdominal pain in a patient with renal failure. Findings: The intestinal gas pattern is nonobstructive. There no masses or abnormal calcifications. Vascular and vas deferens calcification is present. There is degenerative spurring and hypertrophic osteophytosis involving the lumbar spine and visualized portions of the thoracic spine. IMPRESSION: No acute abdominal abnormality. Signed by: Dr. Efrain Hernandez DO on 03/22/2019 1:31 PM
--- NOTE | 2019-03-22 15:12 | History and Physical ---
CHIEF COMPLAINT: Nausea, vomiting, abdominal pain, and worsening renal function. HISTORY OF PRESENT ILLNESS: This is a 58-year-old male, very noncompliant with his medical care including history of CKD stage 4-5. He presents to the ED with complaints of abdominal pain, nausea, and vomiting. While here, the patient was found to have elevated creatinine and was admitted for further evaluation and management. He was seen by Nephrology already several months back here at this facility. He reports having some significant amount of vomiting at home. Currently, during my evaluation, abdominal pain was resolved, nausea and vomiting resolved, and he is tolerating diet well as well as p.o. fluid intake. The patient was seen and evaluated at bedside on the medical floor, currently doing well with no other issues at this time. He denies any chest pain or any palpitations during my examination. REVIEW OF SYSTEMS: Pertinent positives: Abdominal pain, nausea, vomiting. Pertinent negatives: Denies any chest pain, palpitations, dysuria, hematuria, frequency, urgency, lightheadedness, dizziness, cough, congestion, fever, or any other complaints. The rest of the 14-point review of systems have been reviewed with the patient and are negative. ALLERGIES: NO KNOWN DRUG ALLERGIES. HOME MEDICATIONS: Lipitor 40 mg daily, hydralazine 50 mg p.o. b.i.d., Reglan 5 mg p.o. a.c. h.s. PAST MEDICAL HISTORY: He has known history of CKD stage 4-5. History of diabetes in the past, hyperlipidemia, hypertension. PAST SURGICAL HISTORY: Reports none. FAMILY HISTORY: Hypertension and diabetes. SOCIAL HISTORY: No drugs. No alcohol. Does not smoke. Good social support. PHYSICAL EXAMINATION: VITAL SIGNS: Temperature is 96.7, pulse 84, respiratory rate is 18, blood pressure 150/79, pulse ox 98% on room air. GENERAL: Not in acute distress. Alert and oriented x3. He is cooperative on examination. LABORATORY DATA: White count 7.5, hemoglobin 8.6, hematocrit 26.5, and platelets of 173. Chemistry; sodium 133, potassium 4.5, chloride 107, bicarb is 16, anion gap of 14, BUN is 87, creatinine is 5.3, glucose is 72, calcium 8.1, phosphorus 7.1, magnesium 1.7, total bilirubin is 0.4. LFTs are normal. Troponin is 0.068. Lipase 82, total protein 6.9. Urinalysis shows 2+ protein. MICROBIOLOGY: None. IMAGING STUDIES: None. IMPRESSION: 1. Chronic kidney disease stage 4-5 with underlying dehydration. 2. Abdominal pain with nausea and vomiting, could be secondary to underlying renal failure. 3. Hypertension. 4. Type 2 diabetes. PLAN: At this time, from a renal standpoint, he seems to be at his baseline, but we will go ahead and consult with Nephrology to come see him. We are going to trend troponins, repeat labs in the morning. His abdominal pain action resolved. We will continue with antinausea medication. He already tolerated diet well this morning. Continue with pain control. Get a KUB while here. Resume same home medications with no changes. Encourage ambulation. Put him on heparin for DVT prophylaxis. Otherwise, I discussed plan of care with nurse at bedside. MD BRETT Alex/TEDDY /[id number]
[2019-03-22] MEDS: HYDRALAZINE HCL 25 MG TAB PO SCH (17:19)
[2019-03-22] MEDS: MORPHINE SULFATE INJ 4 MG/ML INJ 1ML IV PRN (17:19)
[2019-03-22] MEDS: SODIUM BICARBONATE 650 MG TAB PO SCH (17:19)
[2019-03-22] MEDS: METOCLOPRAMIDE HCL 10 MG TAB PO SCH ×2 (17:20→20:41)
--- NOTE | 2019-03-22 18:00 | NUR ---
Nutrition Screen Note RD Recommendation for Physician: -Rec adding ADA 1800 to renal diet as medically appropriate -If PO <50% in next 2 days, rec Nepro BID to increase protein-calorie intake. Plan of Care: RD following, monitoring for tolerance and adequacy Nutrition reason for involvement: Nutrition Risk Trigger MST Primary Diagnose(s): 1. Chronic kidney disease stage 4-5 with underlying dehydration. 2. Abdominal pain with nausea and vomiting, could be secondary to underlying renal failure. PMH: CKD stage 4-5, DM, HLD, HTN Ht: 70in Wt: 189lb BMI: 27.1kg/m2 IBW: 166lb RD Assessment: (03/22) Chart reviewed. 58yo M, who was admitted for abdominal pain, nausea, and vomiting. Labs revealed worsening renal function with elevated BUN at 87, Creatinine at 5.38, GFR at 11, and phosphorus at 7.1. Pt was well known to me from his previous admissions for renal failure. Diet education was provided at that time. Visited pt in the room. Pt reported poor appetite with abdominal cramping. KUB was normal. Pt complained of some nausea (meds were given) but no vomiting episode noted. LBM 03/21. Stable weight. Supervisor Rub[employer] Covering was consulted. Will continue to monitor and follow. Current Diet: renal diet Malnutrition Evaluation (03/22/2019) The patient does not meet criteria for a specified degree of malnutrition at this time. Will re-evaluate at follow-up as appropriate. Diet Education Needs Assessment: Diet education not indicated. Nutrition Care Level: low Signed: Tia Farrell, MS, RD, LD
--- NOTE | 2019-03-22 19:15 | NUR ---
Spoke to Neema with [facility], she made aware of hemodialysis schedule tomorrow post permacath placement as ordered by Dr Tariq
--- NOTE | 2019-03-22 19:45 | NUR ---
change of shift report given to ELOINA Richmond, pt is resting comfortably in bed, resp even and unlabored, IV infusing NS at 75 mls/hr. Pt verbalized pain control after receiving morphine and denies nausea after zofran was given as requested. Instructed to call for assistance, call light is within reach, bed in the lowest position, and side rails upx2.
[2019-03-22] MEDS: HEPARIN SOD (PORCINE) 5,000 UNIT/ML VIAL SC SCH (20:51)
[2019-03-23] VITALS (8 sets, daily range): BP systolic 137–179; BP diastolic 71–85
--- NOTE | 2019-03-23 02:10 | Consultation ---
DATE OF CONSULTATION: REASON FOR CONSULTATION: Erccn-fe-zivsobe kidney disease stage 5. HISTORY OF PRESENT ILLNESS: The patient is a very pleasant 58-year-old male with past medical history of CKD stage 5, diabetes type 2, hypertension, hyperlipidemia, was admitted with nausea, vomiting, and abdominal pain. Per patient, he has been having nausea and vomiting episode every week and has been feeling very tired and weak. When he came to the emergency room, found to have a creatinine of 5.86. The patient was started on IV fluid. This morning, creatinine is at 5.38. The patient denies having dysgeusia or shortness of breath, but has been feeling very tired and weak. He was found to have hemoglobin of 8.6. He had an abdominal x-ray done that did not show any acute abnormalities. PAST MEDICAL HISTORY: As above. PAST SURGICAL HISTORY: None. FAMILY HISTORY: Positive for hypertension and diabetes. SOCIAL HISTORY: No history of tobacco, alcohol, or intravenous drug abuse. Works here at [employer]. REVIEW OF SYSTEMS: Pertinent positive ones as per HPI. MEDICATIONS: As per MAR. PHYSICAL EXAMINATION: VITAL SIGNS: Blood pressure 163/81, pulse of 87, respirations 20, temperature 98.6, and 98% on room air. GENERAL: Awake, alert, and oriented x3, not in apparent distress. HEENT: PERRLA. Extraocular movements intact. NECK: No JVD. No mass. Supple. LUNGS: Clear to auscultation bilaterally. No added sound. HEART: S1 and S2. Regular rate and rhythm. ABDOMEN: Soft, nontender, and nondistended. Bowel sound positive. EXTREMITIES: No cyanosis, clubbing, or edema. NEUROLOGIC: No focal deficits. No asterixis. SKIN: No new rash. LABORATORY DATA: White count 7.5, hemoglobin 8.6, platelet count is 173. Sodium 133, potassium 4.5, chloride 107, CO2 of 16, BUN 87, creatinine 5.38, glucose 72, calcium 8.1, phosphorus 7.1, albumin 2.7, globulin 4.2. UA; 6 to 10 rbc, 2+ protein. Abdominal x-ray, no acute abnormalities. ASSESSMENT AND PLAN: 1. Chronic kidney disease stage 5, likely end-stage renal disease. The patient is agreeable to get initiated on hemodialysis as he is uremic and per patient has been feeling nausea and vomiting intermittently for several weeks and he was trying to putting off dialysis, but now he thinks he is ready and he does not want to live like that any more. We will consult Interventional Radiology for Tesio and initiate the patient on dialysis tomorrow after Tesio placement. We will also consult case management for outpatient dialysis set up. 2. Anemia, likely secondary to chronic kidney disease. We will check iron panel and give intravenous iron if low. If iron is okay, we will start the patient on WILFRIDO. 3. Hyperphosphatemia. Start the patient on phosphorus binder. 4. Hypertension, currently uncontrolled. We will discontinue IV fluids. Adjust the medicine if remains high. 5. Diabetes type 2 per primary team. 6. Discussed with Dr. Lockhart. I want to thank Dr. Lockhart for the consult. MD SAY Milton/TEDDY /[id number]
[2019-03-23 05:35] LABS: BASOPHILS % 0.4 % (0.0-1.0); EOSINOPHILS # (AUTO) 0.1 (0.0-0.4); EOSINOPHILS % 1.6 % (0.0-6.0); HEMATOCRIT 22.9 % (38.2-49.6); HEMOGLOBIN 7.4 g/dL (14.0-18.0); INR 1.11; LYMPHOCYTES # (AUTO) 1.3 (1.0-3.2); MEAN CORPUSCULAR HEMOGLOBIN 29.8 pg (28-32); MEAN CORPUSCULAR HGB CONC 32.3 g/dL (31-35); MEAN CORPUSCULAR VOLUME 92.3 fL (81-99); MONOCYTES # (AUTO) 0.7 (0.2-0.8); MONOCYTES % 12.6 % (4.4-11.3); NEUTROPHILS # (AUTO) 3.4 (2.1-6.9); NEUTROPHILS % 61.9 % (38.7-80.0); PLATELET COUNT 150 x10e3/uL (140-360); PROTHROMBIN TIME 14.8 seconds (11.9-14.5); RED BLOOD COUNT 2.48 x10e6/uL (4.3-5.7); RED CELL DISTRIBUTION WIDTH 13.5 % (11.7-14.4)
[2019-03-23 05:53] LABS: ANION GAP 12.5 mmol/L (8-16); CALCIUM 7.9 mg/dL (8.4-10.2); CREATININE, SERUM 5.3 mg/dL (0.72-1.25); POTASSIUM 4.5 mmol/L (3.5-5.1)
[2019-03-23 06:36] LABS: FERRITIN 557.71 ng/mL (21.81-274.66)
--- NOTE | 2019-03-23 07:24 | NUR ---
PATIENT IN BED WITH HEAD OF BED ELEVATED WATCHING TV, NO DISTRESS NOTED. DENIED PAIN AT THIS TIME. BED IN LOWER POSITION, CALL LIGHT AT REACH.
[2019-03-23] MEDS: METOCLOPRAMIDE HCL 10 MG TAB PO SCH ×4 (07:30→22:30)
[2019-03-23] MEDS: SEVELAMER CARBONATE 800 MG TAB PO SCH ×3 (08:00→17:00)
[2019-03-23] MEDS: SODIUM BICARBONATE 650 MG TAB PO SCH ×2 (09:00→17:00)
[2019-03-23] MEDS: HEPARIN SOD (PORCINE) 5,000 UNIT/ML VIAL SC SCH ×2 (09:00→22:30)
[2019-03-23] MEDS: HYDRALAZINE HCL 25 MG TAB PO SCH ×2 (09:00→17:31)
[2019-03-23] MEDS: EPOETIN ALFA 10000 UNIT/ML VIAL SC SCH (09:48)
--- NOTE | 2019-03-23 09:48 | NUR ---
SPOKE WITH MD REGARDING ABNORMAL LAB RESULTS. NEW ORDERS RECEIVED.
[2019-03-23] MEDS: SODIUM FERRIC GLUCONATE COMPLX 125 MG in SODIUM CHLORIDE 0.9% 100 ML 100 ML IV SCH (09:50)
--- NOTE | 2019-03-23 11:52 | NUR ---
PATIENT REMAINS NPO FOR HEMODIALYSIS CATHETER PLACEMENT. CALL RECEIVED FROM RADIOLOGY STATING THAT THE PROCEDURE WILL BE DONE AROUND 1400. PATIENT AWARE OF PLAN OF CARE.
[2019-03-23] MEDS ORDERED: MIDAZOLAM HCL 2 MG/2 ML VIAL ONE (13:54)
[2019-03-23] MEDS ORDERED: LIDOCAINE HCL 2% LOCAL 20 ML VIAL ONE (13:55)
[2019-03-23] MEDS ORDERED: FENTANYL CITRATE/PF 100MCG/2 ML INJ ONE (13:55)
[2019-03-23] MEDS ORDERED: SODIUM CHLORIDE 0.9% 500ML 1,000 ML ONE (13:55)
--- NOTE | 2019-03-23 14:08 | NUR ---
PATIENT OFF UNIT TO GEOPHYSICAL COMPUTER.
--- NOTE | 2019-03-23 14:21 | NUR ---
SPOKE WITH PT ABOUT DIALYSIS CHAIR AND INFORMATION HE SIGNED CHOICE FOR [facility] WITH DR GONZALEZ. HAS NO PREFERENCE ON CHAIR OR TIME OF YET. SPOKE WITH NURSE ABOUT NECESSARY LABS TO GET FOR PLACEMENT. FILED CHOICE IN CHART.
[2019-03-23] MEDS ORDERED: CEFAZOLIN SOD 1 GM VIAL ONE (14:29)
[2019-03-23] MEDS ORDERED: SODIUM CHLORIDE 0.9% 50ML 50 ML ONE (14:29)
--- NOTE | 2019-03-23 15:25 | NUR ---
PATIENT BACK TO UNIT FROM [facility]. REPORT RECEIVED FROM ELOINA MARTINS. PATIENT HAS A TUNNELLED DIALYSIS CATHETER TO RIGHT UPPER CHEST. DOUBLE LUMEN CATHETER TO RIGHT UPPER CHEST WITH DRESSING DRY AND INTACT. EACH PORT PACKED WITH 2000 UNITS HEPARIN AND OK TO BED USED PER COIL TIER. DENIED PAIN AT THIS TIME. V/S 95.7-81-18-179/85, AND 96% ON RA. BED IN LOWER POSITION, CALL LIGHT AT REACH. INSTRUCTED TO CALL FOR ASSISTANCE NEEDED.
--- NOTE | 2019-03-23 16:18 | Progress Note ---
DATE: 03/23/2019 Medicine Progress Note SUBJECTIVE: The patient is scheduled for a tunneled dialysis catheter later today initiation of treatment of dialysis. He did agree for outpatient hemodialysis ESRD. Discussed with inspector wreath on yesterday. OBJECTIVE: VITAL SIGNS: Temperature is 98.5, pulse 76, respirations 18, blood pressure is 157/74, and pulse ox 98% on room air. GENERAL: Not in acute distress, alert and oriented x3. Cooperative on examination. HEENT: Head is normocephalic and atraumatic. Eyes; pupils are equal, round, and reactive to light bilaterally. Extraocular muscles are intact bilaterally. NECK: Supple. Good range of motion. THROAT: No evidence of erythema or exudates in the posterior pharynx. Has poor dentition. PULMONARY: Clear to auscultation bilaterally. No wheezing, rales, or rhonchi. No crackles. CARDIOVASCULAR: Positive S1, S2. No murmurs, rubs, or gallops appreciated. ABDOMEN: Soft, nontender, nondistended to palpation. Bowel sounds present. MUSCULOSKELETAL: Strength is 5/5 throughout. evidence of any muscle deficits on examination. No weakness appreciated. NEUROLOGICAL: Cranial nerves II through XII grossly intact. No evidence of any neurological deficits on exam. SKIN: Intact. Warm to touch. Good cap refill. PSYCHIATRIC: Normal affect and mood. EXTREMITIES: No edema. Good range of motion throughout. LAB FINDINGS: Show white count 5.5, hemoglobin 7.4, hematocrit 22.9, platelets is 150. Coagulation; PT 14, INR 1.1. Chemistries; sodium 134, potassium 4.4, chloride 107, bicarb 19, anion gap of 12.5, BUN 79, creatinine 5.3, glucose is 83, calcium is 7.9. His iron saturation 15%. His troponins were all within normal range and negative. Microbiology; none. IMAGING STUDIES: None. IMPRESSION: 1. Chronic kidney disease stage 5, now end stage renal disease and to begin initiation of hemodialysis. 2. Abdominal pain, nausea, and vomiting, likely secondary to renal failure. 3. Hypertension. 4. Type 2 diabetes. PLAN: He is scheduled for tunneled dialysis catheter later today. We will get his 1st treatment by Nephrology today. We are setting up outpatient HD unit at [facility] per Nephrology recommendations and suggestion. The patient agrees to go [facility] per the patient. He is currently not nauseated and has no vomiting. We will continue to monitor him very closely and get a.m. labs. Otherwise, KUB was negative. MD BRETT Alex/TEDDY /[id number]
--- NOTE | 2019-03-23 16:35 | Diagnostic Imaging Report ---
EXAMINATION: CHEST SINGLE (PORTABLE) INDICATION: Renal failure. COMPARISON: Chest radiograph 02/18/2019. FINDINGS: TUBES and LINES: Interval placement of a right IJ tunneled hemodialysis catheter terminates at the cavoatrial junction. LUNGS: Low lung volumes. There is no evidence of pneumonia or pulmonary edema. PLEURA: No pleural effusion or pneumothorax. HEART AND MEDIASTINUM: The cardiomediastinal silhouette is unremarkable. BONES AND SOFT TISSUES: No acute osseous abnormality. UPPER ABDOMEN: No free air under the diaphragm. IMPRESSION: Interval placement of a right IJ tunneled hemodialysis catheter which terminates at the cavoatrial junction. No evidence of pneumothorax. Signed by: Dr. Amor Pierce MD on 03/23/2019 4:32 PM
--- NOTE | 2019-03-23 17:34 | Diagnostic Imaging Report ---
PROCEDURE: PLACEMENT OF RIGHT IJ TUNNELED HEMODIALYSIS CATHETER WITH ULTRASOUND AND FLUOROSCOPIC GUIDANCE INDICATION: Need for hemodialysis access. OPERATORS: Amor Pierce MD RADIATION EXPOSURE: Not recorded on sent images, will addend if technologist sends data CONSENT: The patient was informed of the nature of the proposed procedure. The purposes, alternatives, risks, and benefits were explained and discussed. All questions were answered and written consent was obtained. ANESTHESIA: Moderate sedation. Continuous hemodynamic monitoring was performing by interventional nursing MEDICATIONS: 15 cc of 1% subcutaneous lidocaine IV Fentanyl and Versed per nursing administration records. SPECIMEN: None IMPLANT: Right IJ tunneled hemodialysis catheter (Hemosplit 16 Fr x 19 cm) TECHNIQUE: The patient was brought to the angiography suite, and the right neck and upper chest were prepped and draped in standard sterile fashion. All elements of maximal sterile barrier technique were followed including cap and mask, sterile gown, sterile gloves, large sterile sheet, hand hygiene and 2% chlorhexidine for cutaneous antisepsis. Pre-procedure time-out confirmed the patient identity and the procedure to be performed. Ultrasound demonstrated that the right internal jugular vein was patent and compressible. Using standard sterile technique, 1 % lidocaine was administered subcutaneously for local anesthesia. Under continuous sonographic guidance, the right internal jugular vein was accessed using a 21 G micropuncture needle. Permanent ultrasound image was stored. The access needle was exchanged for a 5 Fr micropuncture sheath. An 0.035'' Amplatz wire was advanced into the IVC to secure access. The venotomy site was dilated. Appropriate measurements were made using the 7 Fr dilator. Attention was then turned towards the subcutaneous tunnel. After administration of 1% lidocaine subcutaneously for local anesthesia, a 16 Fr x 19 cm Hemosplit hemodialysis catheter was tunneled in an antegrade direction from skin exit site to venotomy site. The dilator was exchanged for the peel-away sheath under direct fluoroscopic visualization. The catheter was then advanced through the peel-away sheath into the superior vena cava. After confirming appropriate position with fluoroscopy the catheter tip in the proximal right atrium, the peel-away sheath was removed, and both lumens aspirated, check flushed, and terminally flushed with 2 cc each of heparin solution (1000 units/cc of heparin). The catheter was secured using 3-0 Ethilon pursestring suture at the catheter exit site and also 3-0 Ethilon sutures at the catheter hub. The venotomy site was closed with subcutaneous Vicryl suture, Dermabond, and steri-strips. Sterile dressings were applied. The patient tolerated the procedure without procedural related complication. FINDINGS: 1. Patent and compressible right IJV accessed with continuous ultrasound guidance. 2. Placement of 16 Fr x 19 cm tunneled right IJV hemodialysis catheter. 3. Post-procedure intraprocedural chest radiograph showed the catheter tip in the proximal right atrium, no kinks along course of catheter, and no pneumothorax. Catheter is ready for use. IMPRESSION: Placement of right IJ tunneled hemodialysis catheter. Catheter is ready for immediate use. Signed by: Dr. Amor Pierce MD on 03/23/2019 5:30 PM
[2019-03-23] MEDS: MORPHINE SULFATE INJ 4 MG/ML INJ 1ML IV PRN (20:33)
[2019-03-23] MEDS ORDERED: MANNITOL 25% 12.5GM/50 ML VIAL IV PRN (20:45)
[2019-03-23] MEDS ORDERED: HEPARIN SOD (PORCINE) 1000 UNIT/ML SDV IV PRN (20:45)
[2019-03-23] MEDS ORDERED: SODIUM CHLORIDE 0.9% 250ML 500 ML IV PRN (20:45)
[2019-03-23] MEDS ORDERED: SODIUM CHLORIDE 0.9% 1000ML 2,000 ML IV PRN (20:45)
--- NOTE | 2019-03-23 20:45 | NUR ---
DIALYSIS HAS COME TO THE PATIENTS ROOM.
[2019-03-23] MEDS ORDERED: ACETAMINOPHEN 325 MG TAB PO PRN (21:30)
[2019-03-23] MEDS: ATORVASTATIN 40 MG TAB PO SCH (22:30)
[2019-03-24] VITALS (7 sets, daily range): BP systolic 117–205; BP diastolic 63–95
[2019-03-24] MEDS ORDERED: NIFEDIPINE CR 30 MG TAB PO ONE (00:15)
[2019-03-24] MEDS: MORPHINE SULFATE INJ 4 MG/ML INJ 1ML IV PRN (05:20)
[2019-03-24 06:06] LABS: BASOPHILS % 0.2 % (0.0-1.0); EOSINOPHILS # (AUTO) 0.1 (0.0-0.4); EOSINOPHILS % 2.6 % (0.0-6.0); HEMATOCRIT 25.2 % (38.2-49.6); LYMPHOCYTES % 18.9 % (18.0-39.1); MEAN CORPUSCULAR HEMOGLOBIN 29.5 pg (28-32); MEAN CORPUSCULAR HGB CONC 31.7 g/dL (31-35); MONOCYTES # (AUTO) 0.7 (0.2-0.8); MONOCYTES % 14.1 % (4.4-11.3); NEUTROPHILS # (AUTO) 3.3 (2.1-6.9); PLATELET COUNT 158 x10e3/uL (140-360); RED BLOOD COUNT 2.71 x10e6/uL (4.3-5.7); RED CELL DISTRIBUTION WIDTH 13.2 % (11.7-14.4)
[2019-03-24 06:21] LABS: ALBUMIN 2.6 g/dL (3.5-5.0); ALBUMIN/GLOBULIN RATIO 0.6 (0.8-2.0); ANION GAP 13.2 mmol/L (8-16); CALCIUM 8.5 mg/dL (8.4-10.2); CREATININE, SERUM 4.29 mg/dL (0.72-1.25); POTASSIUM 4.2 mmol/L (3.5-5.1)
[2019-03-24] MEDS: METOCLOPRAMIDE HCL 10 MG TAB PO SCH ×4 (07:30→21:05)
--- NOTE | 2019-03-24 07:40 | NUR ---
Patient alert and responsive, no resp distress, VSS and OOB siting on edge of bed in the room, call light within reach and will monitor.
[2019-03-24] MEDS: SEVELAMER CARBONATE 800 MG TAB PO SCH ×3 (08:00→16:35)
[2019-03-24] MEDS: SODIUM FERRIC GLUCONATE COMPLX 125 MG in SODIUM CHLORIDE 0.9% 100 ML 100 ML IV SCH (09:00)
[2019-03-24] MEDS: SODIUM BICARBONATE 650 MG TAB PO SCH ×2 (09:00→16:35)
[2019-03-24] MEDS: HEPARIN SOD (PORCINE) 5,000 UNIT/ML VIAL SC SCH ×2 (09:00→21:05)
--- NOTE | 2019-03-24 09:00 | NUR ---
Patient tolerated all meds, appetite fair, starting hemodialysis at this time
--- NOTE | 2019-03-24 09:53 | NUR ---
Patient tolerating dialysis, normotensive and will monitor
[2019-03-24] MEDS: HYDRALAZINE HCL 25 MG TAB PO SCH ×2 (10:52→16:35)
--- NOTE | 2019-03-24 19:29 | Progress Note ---
DATE: 03/24/2019 SUBJECTIVE: The patient has a hemodialysis treatment #2 on today. He reports feels much better last night. No overnight events. PHYSICAL EXAMINATION: VITAL SIGNS: Temperature is 98.1, pulse 76, respiratory rate is 18, blood pressure , pulse ox 93% on room air. GENERAL: Not in acute distress, alert and oriented x3. Cooperative on examination. HEENT: Head is normocephalic and atraumatic. Eyes; pupils are equal, round, and reactive to light bilaterally. Extraocular muscles are intact bilaterally. NECK: Supple. Good range of motion. THROAT: No evidence of erythema or exudates in the posterior pharynx. Has poor dentition. PULMONARY: Clear to auscultation bilaterally. No wheezing, rales, or rhonchi. No crackles. CARDIOVASCULAR: Positive S1, S2. No murmurs, rubs, or gallops appreciated. ABDOMEN: Soft, nontender, nondistended to palpation. Bowel sounds present. MUSCULOSKELETAL: Strength is 5/5 throughout. No evidence of any muscle deficits on examination. NEUROLOGICAL: Cranial nerves II through XII grossly intact. No evidence of any neurological deficits on exam. SKIN: Intact. Warm to touch. Good cap refill. PSYCHIATRIC: Normal affect and mood. EXTREMITIES: No edema. Good range of motion throughout. LABORATORY DATA: Lab findings show white count 5, hemoglobin 8, hematocrit 25, platelets of 158. Coagulation PT 14 INR 1.1. Chemistry; sodium 138, potassium 4.2 chloride 105, bicarb 24, anion gap of 20, BUN is 46, creatinine is 4.2, glucose is 80. MICROBIOLOGY: None. IMPRESSION: 1. End-stage renal disease, on hemodialysis treatment #2 today. 2. Abdominal pain, nausea and vomiting due to acute renal failure now improved. 3. Hypertension. 4. Type 2 diabetes. PLAN: At this time, he has received hemodialysis treatment #2 per Nephrology. The plan is for [place] be [place] [facility] [place] once he is approved. His vomiting, nausea and abdominal pain all resolved. We will continue with same plan of care and monitor him closely. He is on a renal diet as well. We will get a.m. labs. MD BRETT Alex/TEDDY /[id number]
--- NOTE | 2019-03-24 21:00 | NUR ---
PATIENT IS IN STABLE CONDITION, NO SIGNS OF DISTRESS. STATES THAT HE HAS NO PAIN IN HIS ABDOMINAL AREA TODAY. BED IS LOW AND LOCKED, BOTH SIDE RAILS ARE UP, CALL LIGHT WITHIN EASY REACH, WILL CONTINUE TO MONITOR.
[2019-03-24] MEDS: ATORVASTATIN 40 MG TAB PO SCH (21:05)
[2019-03-25] VITALS (8 sets, daily range): BP systolic 140–186; BP diastolic 70–90
--- NOTE | 2019-03-25 07:20 | NUR ---
PATIENT SITTING AT BED SIDE WATCHING TV, NO S/S OF DISCOMFORT NOTED. RIGHT UPPER CHEST CATHETER DRESSING WITH DRY BLOOD. BED IN LOWER POSITION, CALL LIGHT AT REACH.
[2019-03-25] MEDS: METOCLOPRAMIDE HCL 10 MG TAB PO SCH ×4 (08:07→20:50)
[2019-03-25] MEDS: SEVELAMER CARBONATE 800 MG TAB PO SCH ×3 (08:45→17:31)
[2019-03-25] MEDS: SODIUM FERRIC GLUCONATE COMPLX 125 MG in SODIUM CHLORIDE 0.9% 100 ML 100 ML IV SCH (09:00)
[2019-03-25] MEDS: HEPARIN SOD (PORCINE) 5,000 UNIT/ML VIAL SC SCH ×2 (09:00→20:50)
[2019-03-25] MEDS: HYDRALAZINE HCL 25 MG TAB PO SCH ×2 (09:13→17:31)
[2019-03-25] MEDS: SODIUM BICARBONATE 650 MG TAB PO SCH (09:13)
--- NOTE | 2019-03-25 11:25 | NUR ---
PATIENT IN BED WITH HEAD OF BED ELEVATED TALKING ON THE PHONE, NO COMPLAIN VOICED. CALL LIGHT AT REACH.
--- NOTE | 2019-03-25 15:50 | NUR ---
IN TO SEE PATIENT, NO NEW OR PHILIP RECEIVED.
--- NOTE | 2019-03-25 17:54 | Progress Note ---
DATE: 03/25/2019 Medicine Progress Note SUBJECTIVE: The patient is doing well today with no complaints. No nausea, no vomiting, no abdominal pain. Scheduled for dialysis tomorrow. He is actually afebrile, normotensive, respiratory rate is good. Labs reviewed and found to be stable. PHYSICAL EXAMINATION: GENERAL: Not in acute distress, alert and oriented x3. Cooperative on examination. HEENT: Head is normocephalic, atraumatic. Eyes; pupils are equal, round, and reactive to light bilaterally. Extraocular movements are intact bilaterally. Throat, no evidence of any erythema or exudates in the posterior pharynx. Has poor dentition. NECK: Supple. Good range of motion. PULMONARY: Clear to auscultation bilaterally. No wheezing, no rales, no rhonchi, no crackles appreciated. CARDIOVASCULAR: Positive S1, S2. No murmurs, rubs, or gallops appreciated. ABDOMEN: Soft, nondistended, and nontender to palpation. Bowel sounds present. MUSCULOSKELETAL: Strength is 5/5 throughout. No evidence of any muscle deficits on examination. No weakness appreciated. NEUROLOGICAL: Cranial nerves II through XII grossly intact. No evidence of any neurological deficits on exam. SKIN: Intact. Warm to touch. Good cap refill. PSYCHIATRIC: Normal affect and mood. EXTREMITIES: No edema. Good range of motion throughout. IMPRESSION: 1. End-stage renal disease, on hemodialysis. Hemodialysis scheduled for tomorrow. 2. Abdominal pain with nausea and vomiting, resolved. 3. Hypertension. 4. Type 2 diabetes. PLAN: Scheduled for dialysis tomorrow treatment #3. Nephrology is working on placement for dialysis unit with SNG here around this hospital facility. Get a.m. labs. May need blood transfusion prior to being discharged. MD BRETT Alex/TEDDY /[id number]
[2019-03-25] MEDS: DOCUSATE SODIUM 100 MG CAP PO SCH (19:11)
[2019-03-25] MEDS: ATORVASTATIN 40 MG TAB PO SCH (20:50)
--- NOTE | 2019-03-25 20:50 | NUR ---
PATIENT IS IN STABLE CONDITION, NO DISTRESS NOTED. NO COMPLAINTS OF PAIN AND IS RELAXING COMFORTABLY IN BED. BED IS LOCKED AND LOW, CALL LIGHT WITHIN REACH, CONTINUING TO MONITOR.
[2019-03-26] VITALS (8 sets, daily range): BP systolic 165–204; BP diastolic 84–104
[2019-03-26] MEDS: HYDRALAZINE HCL 10 MG TAB PO PRN ×3 (00:01→12:14)
--- NOTE | 2019-03-26 03:34 | NUR ---
PATIENT RESTING IN BED UPON MAKING ROUNDS, NO DISTRESS NOTED. PATIENT COMPLAINS OF NO PAIN OR DISCOMFORT, CALL LIGHT IS WITHIN REACH, BED LOCKED AND LOW, WILL CONTINUE TO MONITOR.
[2019-03-26] MEDS: MORPHINE SULFATE INJ 4 MG/ML INJ 1ML IV PRN (04:30)
--- NOTE | 2019-03-26 04:30 | NUR ---
PATIENT COMPLAINED OF HAVING LOWER ABDOMINAL PAIN AGAIN AFTER NOT HAVING PAIN THE PAST TWO DAYS. MEDICATION WAS GIVEN TO RELIEVE PAIN, WILL CONTINUE TO MONITOR SITUATION. THE PATIENT'S BLOOD PRESSURE HAS CONSISTENTLY BEEN HIGH WELL HIS MIDNIGHT VITAL WAS 176/85, HYDRALAZINE WAS GIVEN TO PATIENT NEEDED. HIS CURRENT 0400 VITAL HAS SPIKED UP TO 204/104, HYDRALAZINE WAS GIVEN TO PATIENT WELL FOR THAT. WILL RECHECK BLOOD PRESSURE AND FOLLOW UP WITH SITUATION. PATIENT IS NOW STABLE IN BED, NO SIGNS OF DISTRESS, VOICES UNDERSTANDING OF DIRECTIONS NOT TO GET UP AND GET OUT OF BED.
--- NOTE | 2019-03-26 05:11 | NUR ---
AFTER RECHECKING THE PATIENTS BLOOD PRESSURE HE READ 197/98, PATIENT WAS STABLE, NO DISTRESS NOTED. CALLED DR. LEY IN REGARDS TO THE PATIENTS BLOOD PRESSURE, AWAITING CALL BACK.
[2019-03-26 06:25] LABS: BASOPHILS % 0.2 % (0.0-1.0); EOSINOPHILS # (AUTO) 0.2 (0.0-0.4); EOSINOPHILS % 3.4 % (0.0-6.0); HEMATOCRIT 25.4 % (38.2-49.6); HEMOGLOBIN 8.3 g/dL (14.0-18.0); LYMPHOCYTES # (AUTO) 1.1 (1.0-3.2); LYMPHOCYTES % 20.8 % (18.0-39.1); MEAN CORPUSCULAR HEMOGLOBIN 30.1 pg (28-32); MEAN CORPUSCULAR HGB CONC 32.7 g/dL (31-35); MONOCYTES # (AUTO) 0.6 (0.2-0.8); NEUTROPHILS # (AUTO) 3.4 (2.1-6.9); NEUTROPHILS % 64.2 % (38.7-80.0); PLATELET COUNT 176 x10e3/uL (140-360); RED BLOOD COUNT 2.76 x10e6/uL (4.3-5.7); RED CELL DISTRIBUTION WIDTH 13.2 % (11.7-14.4)
[2019-03-26 06:45] LABS: ANION GAP 14.2 mmol/L (8-16); CALCIUM 8.8 mg/dL (8.4-10.2); CREATININE, SERUM 3.98 mg/dL (0.72-1.25); POTASSIUM 4.2 mmol/L (3.5-5.1)
--- NOTE | 2019-03-26 07:30 | NUR ---
REC'D PATIENT AAOX3, SITTING AT THE SIDE OF THE BED, ON ROOM AIR, NO S/S OF DISTRESS. IV TO THE RIGHT AC 20 GAUGE. TELE BOX #18 NSR. PATIENT TO RECEIVE DIALYSIS TODAY IN THE AFTERNOON.
[2019-03-26] MEDS: SEVELAMER CARBONATE 800 MG TAB PO SCH ×3 (08:23→17:00)
[2019-03-26] MEDS: METOCLOPRAMIDE HCL 10 MG TAB PO SCH ×4 (08:23→21:00)
[2019-03-26] MEDS: DOCUSATE SODIUM 100 MG CAP PO SCH ×2 (08:24→17:00)
[2019-03-26] MEDS: HYDRALAZINE HCL 25 MG TAB PO SCH (08:24)
[2019-03-26] MEDS: EPOETIN ALFA 10000 UNIT/ML VIAL SC SCH (08:26)
[2019-03-26] MEDS: HEPARIN SOD (PORCINE) 5,000 UNIT/ML VIAL SC SCH ×2 (09:00→21:00)
[2019-03-26] MEDS ORDERED: SODIUM CHLORIDE 0.9% 250ML 250 ML ONE (09:04)
[2019-03-26] MEDS: SODIUM FERRIC GLUCONATE COMPLX 125 MG in SODIUM CHLORIDE 0.9% 100 ML 100 ML IV SCH (09:14)
--- NOTE | 2019-03-26 10:24 | NUR ---
SPOKE WITH LINO REAL CALENDER WORKER HELPER WITH [employer] FOR THIS PT ANY QUESTIONS RE: DC PLANNING PLEASE CONTACT HER AT [phone]
--- NOTE | 2019-03-26 10:30 | NUR ---
PATIENT VOMITED. PROVIDED EDUCATION THAT IT IS IMPORTANT TO EAT SUFFICIENT WHEN TAKING MEDICATIONS TO PREVENT UPSET STOMACH. PROVIDED EMESIS BAG AND WASH CLOTHS. ADMINISTERED ZOFRAN ORDERED PRN.
--- NOTE | 2019-03-26 10:55 | NUR ---
PATIENT STATED THAT NAUSEA AND VOMITING HAS SUBSIDED. WILL CON'T TO MONITOR.
--- NOTE | 2019-03-26 12:15 | NUR ---
patient blood pressure is 193/94. administered hydralazine PRN as ordered. will re-check in 30-45 minutes.
--- NOTE | 2019-03-26 12:55 | NUR ---
re-checked blood pressure and it is 178/91. will con't to monitor.
--- NOTE | 2019-03-26 14:10 | NUR ---
PATIENT IS IN BED LAYING IN SEMI-FOWLERS POSITION. ON ROOM AIR AND NO S/S OF DISTRESS. SIDE RAILS UP X2, CALL [facility] WITHIN REACH, AND BED IN LOWEST POSITION.
--- NOTE | 2019-03-26 14:58 | NUR ---
FAXING UPDATES TO [facility] FOR DIALYSIS CHAIR, STILL PENDING HEP PANELS.
[2019-03-26] MEDS ORDERED: SODIUM CHLORIDE 0.9% 1000ML 2,000 ML IV PRN (16:45)
[2019-03-26] MEDS ORDERED: SODIUM CHLORIDE 0.9% 250ML 500 ML IV PRN (16:45)
[2019-03-26] MEDS ORDERED: HEPARIN SOD (PORCINE) 1000 UNIT/ML SDV IV PRN (16:45)
--- NOTE | 2019-03-26 17:52 | Progress Note ---
DATE: 03/26/2019 Medicine Progress Note SUBJECTIVE: The patient is scheduled for hemodialysis today. No overnight events. No abdominal pain. No nausea, no vomiting. PHYSICAL EXAMINATION: VITAL SIGNS: Temperature is 97.6, pulse 79, respiratory rate is 20, blood pressure was elevated at 193/94, pulse ox 98% on room air. GENERAL: Not in acute distress, alert and oriented x3. Cooperative on examination. HEENT: Head is normocephalic and atraumatic. Eyes; pupils are equal, round, and reactive to light bilaterally. Extraocular muscles are intact bilaterally. NECK: Supple. Good range of motion. THROAT: No evidence of erythema or exudates in the posterior pharynx. Has poor dentition. PULMONARY: Clear to auscultation bilaterally. No wheezing, no rales, no rhonchi, no crackles appreciated. CARDIOVASCULAR: Positive S1, S2. No murmurs, rubs, or gallops appreciated. ABDOMEN: Soft, nontender, nondistended to palpation. Bowel sounds present. MUSCULOSKELETAL: Strength is 5/5 throughout. No evidence of any muscle deficits on examination. NEUROLOGICAL: Cranial nerves II through XII grossly intact. No evidence of any neurological deficits on exam. SKIN: Intact. Warm to touch. Good cap refill. PSYCHIATRIC: Normal affect and mood. EXTREMITIES: No edema. Good range of motion throughout. LABORATORY DATA: Lab findings show white count 5.2, hemoglobin 8.3, hematocrit 25, platelets of 176. Chemistry; sodium 138, potassium 4.2, chloride 102, bicarb 26, anion gap of 14, creatinine 3.98, glucose is 112. MICROBIOLOGY: None. IMPRESSION: 1. End-stage renal disease on hemodialysis now scheduled for Tuesday, Tuesday and Tuesday. 2. Abdominal pain with nausea, vomiting, resolved. 3. Hypertension. 4. Type 2 diabetes. PLAN: At this time, he is receiving hemodialysis treatment #3 at [facility]. Nephrology is following. Get a.m. labs. No overnight events. Continue with same plan of care. MD BRETT Alex/MODL /[id number]
--- NOTE | 2019-03-26 18:15 | NUR ---
PATIENT IS LAYING IN THE BED REC'V DIALYSIS. DIALYSIS NURSE AT THE BEDSIDE. SIDE RAILS UP X2, CALL [facility] WITHIN REACH, AND BED IN LOWEST POSITION.
--- NOTE | 2019-03-26 20:44 | NUR ---
RECEIVED PT IN BED AOX3 RECEIVING DIALYSIS .NO ACUTE DISTRESS NOTED .CALL LIGHT WITH IN REACH .CONTINUE TO MONITOR
[2019-03-26] MEDS: ATORVASTATIN 40 MG TAB PO SCH (21:00)
[2019-03-26] MEDS: NIFEDIPINE CR 30 MG TAB PO SCH (21:00)
[2019-03-27] VITALS (9 sets, daily range): BP systolic 142–164; BP diastolic 70–82
[2019-03-27 05:55] LABS: BASOPHILS % 0.4 % (0.0-1.0); EOSINOPHILS # (AUTO) 0.2 (0.0-0.4); EOSINOPHILS % 4.6 % (0.0-6.0); HEMOGLOBIN 7.4 g/dL (14.0-18.0); LYMPHOCYTES # (AUTO) 1.2 (1.0-3.2); LYMPHOCYTES % 22.4 % (18.0-39.1); MEAN CORPUSCULAR HEMOGLOBIN 29.1 pg (28-32); MEAN CORPUSCULAR HGB CONC 30.8 g/dL (31-35); MEAN CORPUSCULAR VOLUME 94.5 fL (81-99); MONOCYTES # (AUTO) 0.8 (0.2-0.8); MONOCYTES % 14.6 % (4.4-11.3); NEUTROPHILS % 57.6 % (38.7-80.0); PLATELET COUNT 159 x10e3/uL (140-360); RED BLOOD COUNT 2.54 x10e6/uL (4.3-5.7); RED CELL DISTRIBUTION WIDTH 13.2 % (11.7-14.4)
[2019-03-27 06:15] LABS: ANION GAP 9.2 mmol/L (8-16); CALCIUM 8.4 mg/dL (8.4-10.2); POTASSIUM 4.2 mmol/L (3.5-5.1)
--- NOTE | 2019-03-27 06:40 | NUR ---
T RESTING AND NO ACUTE DISTRESS NOTED .CALL LIGHT WITH IN REACH ,CONTINUE TO MONITOR
--- NOTE | 2019-03-27 07:07 | NUR ---
REPORT GIVEN TO THE ONCOMING NURSE
--- NOTE | 2019-03-27 07:30 | NUR ---
REC'D PATIENT AAOX3, LAYING IN BED IN SEMI-FOWLERS POSITION, OXYGEN BEING DELIVERED VIA ROOM AIR, NO S/S OF DISTRESS. SIDE RAILS UP X2, CALL [facility] WITHIN REACH, AND BED IN LOWEST POSITION.
[2019-03-27] MEDS: METOCLOPRAMIDE HCL 10 MG TAB PO SCH ×4 (08:09→21:21)
[2019-03-27] MEDS: SEVELAMER CARBONATE 800 MG TAB PO SCH ×3 (08:09→17:28)
[2019-03-27] MEDS: DOCUSATE SODIUM 100 MG CAP PO SCH ×2 (08:09→17:00)
[2019-03-27] MEDS: HEPARIN SOD (PORCINE) 5,000 UNIT/ML VIAL SC SCH ×2 (09:00→21:00)
[2019-03-27] MEDS: SODIUM FERRIC GLUCONATE COMPLX 125 MG in SODIUM CHLORIDE 0.9% 100 ML 100 ML IV SCH (09:30)
--- NOTE | 2019-03-27 17:00 | NUR ---
DR. STEPHEN CALLED TO NOTIFY THAT PATIENT HAS A DIALYSIS CHAIR READY AT [facility] AND THAT HE IS READY TO BE DISCHARGED TODAY. DIALYSIS FACILITY CALLED THAT HE IS TO GO TOMORROW TUESDAY, MARCH 28, 2019 AT 9 AM TO FILL OUT PAPERWORK AND THEN TUESDAY, MARCH 29, 2019 HE IS TO GO IN AT 5:30AM TO GET DIALYSIS. WILL NOTIFY DR. LEY IF OKAY TO DISCHARGE.
[2019-03-27] MEDS ORDERED: ONDANSETRON HCL 4 MG ORAL DISINTEGRATING TAB PO PRN (17:30)
[2019-03-27] MEDS ORDERED: SODIUM CHLORIDE 0.9% 250ML 250 ML IV NR (17:45)
--- NOTE | 2019-03-27 18:30 | NUR ---
DR. STEPHEN SAID PATIENT CAN BE DISCHARGED FROM HER STAND POINT. NOTIFIED DR. LEY AND DR. LEY IS NOT DISCHARGING PATIENT DUE TO HGB OF 7.4. DR. LEY ORDERED BLOOD TRANSFUSION FOR PATIENT. PATIENT CAN BE DISCHARGED TOMORROW 03/28/2019 AFTER BLOOD WORK IS DONE AND IF HGB INCREASES. PATIENT IS TO BE AT [facility] AT 9AM TOMORROW 03/28/2019 TO FILL OUT PAPERWORK AND THEN TUESDAY HE IS TO SHOW UP AT 5:30AM FOR DIALYSIS. PATIENT AGREED TO DIALYSIS DAYS TUESDAY, THURSDAYS, SATURDAYS. NOTIFIED [facility] ABOUT [place]IENT AGREEING TO THOSE DAYS. WILL NOTIFY NIGHT NURSE TO NOTIFY DAY SHIFT NURSE TO CALL [facility] TO SEE IF PATIENT CAN GO IN A LITTLE LATER IN THE DAY AFTER 9AM TO FILL OUT PAPERWORK.
--- NOTE | 2019-03-27 18:40 | NUR ---
PATIENT IS SITTING IN RECLINER CHAIR WITH NO S/S OF DISTRESS. PATIENT TO GET BLOOD TRANSFUSION. DUE TO HGB OF 7.4. CALL [facility] WITHIN REACH.
--- NOTE | 2019-03-27 19:35 | NUR ---
RECEIVED PT IN BED AOX3 .NO ACUTE DISTRESS NOTED . ORDER TO GIVE 2 UNIT OF BLOOD CONSENT SIGNED CALL LIGHT WITH IN REACH .CONTINUE TO MONITOR
--- NOTE | 2019-03-27 20:43 | Progress Note ---
DATE: 03/27/2019 Medicine Progress Note SUBJECTIVE: The patient is doing well today. He has been accepted to dialysis unit, but his hemoglobin is 7.4, which he will require 2 units of blood transfusion. OBJECTIVE: VITAL SIGNS: Temperature is 96.8, pulse 81, respiratory rate is 18, blood pressure is 164/82, and pulse ox 98% on room air. GENERAL: Not in acute distress. Alert and oriented x3. Cooperative on examination. HEENT: Head is normocephalic and atraumatic. Eyes; pupils are equal, round, and reactive to light bilaterally. Extraocular muscles are intact bilaterally. Throat, no evidence of erythema or exudates in the posterior pharynx. Has poor dentition. NECK: Supple. Good range of motion. PULMONARY: Clear to auscultation bilaterally. No wheezing, no rales, no rhonchi, no crackles appreciated. CARDIOVASCULAR: Positive S1 and S2. No murmurs, rubs, or gallops appreciated. ABDOMEN: Soft, nondistended, and nontender to palpation. Bowel sounds present. MUSCULOSKELETAL: Strength is 5/5 throughout. No evidence of any muscle deficits on examination. No weakness appreciated. NEUROLOGICAL: Cranial nerves II through XII are grossly intact. No evidence of any neurological deficits on exam. SKIN: Intact. Warm to touch. Good cap refill. PSYCHIATRIC: Normal mood and affect. EXTREMITIES: No edema. Good range of motion throughout. LABORATORY FINDINGS: Show white count is 5.2, hemoglobin 7.4, hematocrit is 24, and platelets of 159. PT 14 and INR 1.1. Chemistry; sodium 137, potassium is 4.2, chloride 100, bicarb 32, anion gap 9.2, BUN is 17, and creatinine is 3. IMPRESSION: 1. End-stage renal disease, on hemodialysis. He will be on a TTS schedule. 2. Abdominal pain with nausea and vomiting, resolved. 3. Hypertension. 4. Type 2 diabetes. 5. Anemia of chronic kidney disease. PLAN: At this time, the patient has been accepted to dialysis at [facility]. He is supposed to go tomorrow to sign paperwork, but his hemoglobin is low at 7.4. At this time, we will keep hold and transfuse 2 units packed RBCs, discharge him in the morning. So he can go and sign his paperwork to begin dialysis on , on 03/29/2019. Discussed plan of care with the nursing staff. He verbalized understanding. Prescription has been given and placed in the chart. MD BRETT Alex/TEDDY /[id number]
[2019-03-27] MEDS: ATORVASTATIN 40 MG TAB PO SCH (21:20)
[2019-03-27] MEDS: NIFEDIPINE CR 30 MG TAB PO SCH (21:21)
[2019-03-27] MEDS ORDERED: SODIUM CHLORIDE 0.9% 250ML 250 ML ONE (22:20)
[2019-03-28] VITALS: BP 130/65
[2019-03-28] MEDS ORDERED: SODIUM CHLORIDE 0.9% 250ML 250 ML ONE (02:00)
[2019-03-28 04:00] VITALS: BP 157/75
--- NOTE | 2019-03-28 06:22 | NUR ---
2 UNIT OF BLOOD GIVEN .TRANSFUSION OF BLOOD FINISHED AT 430AM CBC ODORED.DENIES PAIN .CALL LIGHT WITH IN REACH .CONTINUE TO MONITOR
[2019-03-28 06:43] LABS: BASOPHILS % 0.5 % (0.0-1.0); EOSINOPHILS # (AUTO) 0.2 (0.0-0.4); EOSINOPHILS % 3.9 % (0.0-6.0); HEMATOCRIT 30.7 % (38.2-49.6); HEMOGLOBIN 10.2 g/dL (14.0-18.0); LYMPHOCYTES # (AUTO) 1.3 (1.0-3.2); LYMPHOCYTES % 22.4 % (18.0-39.1); MEAN CORPUSCULAR HEMOGLOBIN 30.6 pg (28-32); MEAN CORPUSCULAR HGB CONC 33.2 g/dL (31-35); MEAN CORPUSCULAR VOLUME 92.2 fL (81-99); MONOCYTES # (AUTO) 0.7 (0.2-0.8); MONOCYTES % 11.1 % (4.4-11.3); NEUTROPHILS # (AUTO) 3.6 (2.1-6.9); NEUTROPHILS % 61.8 % (38.7-80.0); PLATELET COUNT 168 x10e3/uL (140-360); RED BLOOD COUNT 3.33 x10e6/uL (4.3-5.7); RED CELL DISTRIBUTION WIDTH 13.7 % (11.7-14.4)
--- NOTE | 2019-03-28 06:58 | NUR ---
RECEIVED PATIENT RESTING IN BED. NO ACUTE DISTRESS NOTED, RESPIRATIONS EVEN AND UNLABORED. PATIENT DENIES PAIN OR DISCOMFORT AT THIS TIME. CALL LIGHT WITHIN REACH. BED IN THE LOWEST POSITION.
[2019-03-28 07:10] LABS: ANION GAP 14.2 mmol/L (8-16); CALCIUM 8.6 mg/dL (8.4-10.2); CREATININE, SERUM 3.7 mg/dL (0.72-1.25); POTASSIUM 4.2 mmol/L (3.5-5.1)
--- NOTE | 2019-03-28 07:26 | NUR ---
REPORT GIVEN TO THE ONCOMING NURSE
[2019-03-28 07:27] VITALS: BP 175/92
[2019-03-28 07:39] VITALS: BP 182/90
[2019-03-28] MEDS: METOCLOPRAMIDE HCL 10 MG TAB PO SCH ×2 (07:53→11:30)
[2019-03-28] MEDS: HYDRALAZINE HCL 10 MG TAB PO PRN (07:53)
[2019-03-28] MEDS: SEVELAMER CARBONATE 800 MG TAB PO SCH ×2 (07:55→12:00)
[2019-03-28] MEDS: HEPARIN SOD (PORCINE) 5,000 UNIT/ML VIAL SC SCH (07:55)
[2019-03-28] MEDS: EPOETIN ALFA 10000 UNIT/ML VIAL SC SCH (07:55)
[2019-03-28] MEDS: DOCUSATE SODIUM 100 MG CAP PO SCH (07:55)
[2019-03-28 08:01] VITALS: BP 182/90
--- NOTE | 2019-03-28 08:35 | NUR ---
[place] [facility] [place] THEY CALLED AND SPOKE WITH THE NURSE LAST NIGHT TO GIVE THE CHAIR TIME. INFORMED HER THAT WE NEED A CONFIRMATION LETTER THE CHAIR WAS GIVEN. SPOKE WITH NURSE WHOM STATES SHE CALLED AND SPOKE WITH THE DIALYSIS UNIT AND INFORMED THEM HIS BLOOD PRESSURE IS ELEVATED AND HE CANNOT MAKE IT BY 9AM, SHE WAS TOLD THE PT CAN BE THERE ANYTIME BEFORE 2PM FOR PAPERWORK DUE TO HIS CHAIR BEING AT 5AM THE FOLLOWING MORNING. RONALD WILL EMAIL THE CONFIRMATION LETTER FOR ME TO GIVE TO THE PT.
[2019-03-28] MEDS: SODIUM FERRIC GLUCONATE COMPLX 125 MG in SODIUM CHLORIDE 0.9% 100 ML 100 ML IV SCH (09:00)
--- NOTE | 2019-03-28 09:09 | NUR ---
3 LETTERS GIVEN TO PT AND 1 FILED IN CHART WITH STICKER FOR SCANNING PURPOSES, LETTER FROM [facility] [place]CLUDES [place]FORMATION: [facility] SCHEDULE LETTER Patient Name: SAMINA SANCHEZ [facility] Address: [address], [place] [address] Start Date: 03/28/19 FOR PAPERWORK Time for Paperwork: 03/28/19 BEFORE 2:00PM Chair Time: 03/29/19 @ 5:30AM Please bring with you: -Identification Card -Social Security Card -All Insurance Cards -Current Home Medication We advise you to also bring a blanket, pillow, snack and headphones for you comfort. Thank You [facility]
[2019-03-28 09:25] VITALS: BP 156/88
--- NOTE | 2019-03-28 09:49 | NUR ---
PER DR. ZAFAR GARCIA FOR PATIENT TO DC, PATIENT IS TO GET OUTPATIENT TREATMENT TOMORROW. Addendum: 03/28/19 at 1145 by ANTONY HARMON RN PER DIALYSIS NURSE - PER DR. ZAFAR GARCIA FOR PATIENT TO DC.
--- NOTE | 2019-03-28 11:45 | NUR ---
PAGED DR. STEPHEN X3 TO SPEAK TO HER ABOUT PATIENT'S CLEARANCE FOR DC.
--- NOTE | 2019-03-28 12:04 | NUR ---
RECEIVED DC ORDER FROM MD, CLEARANCE ALSO RECEIVED FROM RENAL. PATIENT IS IN STABLE CONDITION. DENIES PAIN, DISCOMFORT OR SOB. IV LINE TO RIGHT AC DCD WITH TIP INTACT, PRESSURE APPLIED TO SITE, NO BLEEDING NOTED. DISCHARGE TEACHING PROVIDED TO PATIENT, HE VERBALIZED UNDERSTANDING. DISCHARGE FOLDER WITH DC PAPERWORK AND PRESCRIPTIONS ON HAND, ALL PERSONAL ITEMS ON HAND. PATIENT ACCOMPANIED TO PRIVATE AUTO VIA WHEELCHAIR BY STAFF.
--- NOTE | 2019-03-28 15:02 | Discharge Summary ---
FINAL DISCHARGE DIAGNOSES: 1. End-stage renal disease, now on hemodialysis. 2. Abdominal pain, nausea, and vomiting secondary to needing hemodialysis. 3. Hypertension. 4. Type 2 diabetes. 5. Anemia of end-stage renal disease. CONSULTANTS: Nephrology. PHYSICAL EXAMINATION: VITAL SIGNS: Temperature is 97, pulse 86, respiratory rate is 18, blood pressure is 156/88, and pulse ox is 95% on room air. LAB FINDINGS: Show white count 5.8, hemoglobin 10.2, hematocrit is 31, platelets of 168. Chemistry; sodium 138, potassium 4.2, chloride 102, bicarb 23, anion gap of 14, BUN is 22, creatinine is 3.7, glucose is 103, calcium is 8.6. LFTs were normal. Lipase was 82, albumin was 2.6. Iron saturation was 15%. Phosphorus was 7.1, magnesium was 1.7. Urinalysis was negative. SEROLOGY: Hepatitis B and hepatitis C were all negative. MICROBIOLOGY: None. IMAGING STUDIES: Abdominal x-ray was negative. Chest x-ray was negative. HOSPITAL COURSE: This is a 58-year-old male, who came into the ED with complaints of abdominal pain, nausea, vomiting, ongoing for the last several days prior to arrival to the hospital. The patient has known CKD stage 5 and was told in the past that he needs to start hemodialysis. While here, Nephrology was consulted and dialysis was initiated. The patient's abdominal pain, nausea, and vomiting all resolved after initiation of hemodialysis. The patient was symptomatic and HD performed, it helped tremendously. He did receive 2 units packed RBCs with much improved hemoglobin level. He received several treatments of hemodialysis while here in the hospital stay. He was set up for outpatient HD at [facility] [place] dialysis on a Tuesday, , Tuesday schedule. The patient was cleared for discharge by Nephrology. On the day of discharge, vital signs stable, labs remained stable. The patient was seen, evaluated, examined thoroughly on the day of discharge with no other complaints. The patient verbalized understanding and agreed to plan of care, to follow up as an outpatient with the primary care physician in 1 week and hemodialysis chair time as scheduled on a TTS starting tomorrow on 03/29/2019. MEDICATIONS: See med reconciliation form. CONDITION: Stable. DIET: Heart healthy. In the event of any worsening symptoms, the patient was advised to come back to the ED for further evaluation. Discharge summary took greater than 35 minutes. MD BRETT Alex/TEDDY /[id number]
== END 2019-03-28 12:44 | disposition home or self-care (01) | DRG 673 ==
LOC: ER 19:07 → ERHOLD 22:35 → MED/SURG3 23:37
PROVIDERS: ADMIT Internal Medicine; ATTEND Internal Medicine
PROC: 5A1D70Z Performance of Urinary Filtration, Intermittent, Less than 6 Hours Per Day (ICD-10-PCS; principal; 2019-03-23)
PROC: 0JH63XZ Insertion of Tunneled Vascular Access Device into Chest Subcutaneous Tissue and Fascia, Percutaneous Approach (ICD-10-PCS; 2019-03-23)
PROC: 02HV33Z Insertion of Infusion Device into Superior Vena Cava, Percutaneous Approach (ICD-10-PCS; 2019-03-23)
PROC: 5A1D70Z Performance of Urinary Filtration, Intermittent, Less than 6 Hours Per Day (ICD-10-PCS; 2019-03-24)
PROC: 5A1D70Z Performance of Urinary Filtration, Intermittent, Less than 6 Hours Per Day (ICD-10-PCS; 2019-03-26)
PROC: 30243N1 Transfusion of Nonautologous Red Blood Cells into Central Vein, Percutaneous Approach (ICD-10-PCS; 2019-03-27)
DX: I12.0 Hypertensive chronic kidney disease with stage 5 chronic kidney disease or end stage renal disease (principal); N18.6 End stage renal disease; N17.9 Acute kidney failure, unspecified; E11.22 Type 2 diabetes mellitus with diabetic chronic kidney disease; Z99.2 Dependence on renal dialysis; Z79.4 Long term (current) use of insulin; D63.1 Anemia in chronic kidney disease; E83.39 Other disorders of phosphorus metabolism
CPT/HCPCS: 36415; 36558; 71045; 74018; 74470; 80048; 80053; 81001; 82550; 82553; 82728; 82948; 83540; 83690; 83735; 84100; 84466; 84484; 85025; 85610; 86705; 86706; 86803; 86850; 86900; 86920; 87340; 90962; 93005; 99284; C1750; C1769; J0690; J1644; J2001; J2150; J2250; J2270; J2405; J2916; J7030; J7040; J7050; J7799; P9016; Q4081

== ENCOUNTER 2019-04-22 19:57 | Emergency (ER) | payer BC ==
[~2019-04-22] VITALS: Ht 177.8 cm; Wt 85.3 kg
--- OUTSIDE RECORDS SUMMARY | 2019-04-22 19:59 | XMS REPORT | Continuity of Care Document ---
Author Author [employer] Address Unknown Phone Unavailable Care Team Providers Care Corporate Treasury Analyst Name Role Phone [email or web address] Unavailable Unavailable Problems Problem Status Onset Date Classification Date Reported Comments Source Chronic kidney disease, stage 4 Active Problem 11/09/2018 [id number] Type 2 diabetes mellitus with diabetic chronic kidney disease Active Problem 11/09/2018 2.16.840.1.938376.4.391.11.19906 Type 2 diabetes mellitus with diabetic autonomic neuropathy Active Problem 11/09/2018 2.16.840.1.601857.4.391.11.05804 Peripheral vascular disease Active Problem 11/09/2018 2.16.840.1.265657.4.391.11.54071 Other and unspecified hyperlipidemia Active Problem 11/09/2018 2.16.840.1.770225.4.391.11.69720 Cardiomyopathy Active Problem 11/09/2018 2.16.840.1.837809.4.391.11.76745 History of CVA Active Problem 11/09/2018 2.16.840.1.644862.4.391.11.52505 Essential hypertension Active Problem 11/09/2018 2.16.840.1.119200.4.391.11.37067 Proliferative diabetic retinopathy Active Problem 11/09/2018 2.16.840.1.175087.4.391.11.89670 Gastroparesis Active Problem 11/09/2018 2.16.840.1.510435.4.391.11.84052 Diabetic retinopathy associated with controlled type 2 diabetes mellitus Active Problem 11/09/2018 2.16.840.1.107677.4.391.11.39017 Hypertensive urgency Active Problem 11/09/2018 2.16.840.1.398427.4.391.11.73880 Periaortic lymphadenopathy Active Problem 11/09/2018 2.16.840.1.448870.4.39168 Elevated PSA Active Problem 11/09/2018 2.16.840.1.938382.4.391 Right carotid artery occlusion Active Problem 11/09/2018 2.16.840.1.425623.4.391 Chronic combined systolic and diastolic heart failure Active Problem 11/09/2018 2.16.840.1.292535.4.391 Acute bronchitis, unspecified organism Active Diagnosis 11/09/2018 2.16.840.1.770017.4.391 Medications Medication Details Route Status Patient Instructions Ordering Provider Order Date Source Questran 1 packet mixed with water or non-carbonated drink Orally Active 4 GM Orally Twice a day Newton 11/03/2018 2.16.840.1.960998.4.391 Promethazine-DM 5 ml as needed Orally Active 6.25-15 MG/5ML Orally every 6 hrs Newton 11/03/2018 2.16.840.1.048065.4.391 Ceftin 1 tablet Orally Active 250 MG Orally every 12 hrs Newton 11/03/2018 2.16.840.1.255304.4.391 Questran 1 packet mixed with water or non-carbonated drink Orally Active 4 GM Orally Twice a day for diarrhea Newton 10/22/2018 2.16.840.1.273545.4.391 Metoprolol Tartrate 1 tablet with food Orally Active 50 mg Orally Twice a day Newton 10/20/2018 2.16.840.1.271665.4.391 Metoprolol Tartrate 1 tablet with food Orally Active 100 mg Orally Twice a day Newton 10/20/2018 2.16.840.1.043964.4.391 Hemocyte Plus 1 capsule Orally Active 106-1 MG Orally Once a day Newton 04/24/2018 2.16.840.1.363936.4.391 Glimepiride 1 tablet with breakfast or the first main meal of the day Orally Active 4 mg Orally Once a day Newton 04/20/2018.16840.1.238822.4.391.68 HydrALAZINE HCl 1 tablet Orally Active 50 mg Orally BID Newton 04/20/2018.16840.1.379366.4.391.68 Lasix 1 tablet Orally Active 40 mg Orally Once a day Newton 04/20/2018.840.1.135732.4.391. HydrALAZINE HCl 1 tablet Orally Active 100 MG Orally BID Newton 04/20/201816840.1.582957.4.391. Atorvastatin Calcium 1 tablet Orally Active 40 mg Orally Once a day Newton 11.25.830.1.294358.4.391.68 Pantoprazole Sodium 1 tablet Orally Active 40 mg Orally twice a day (bid) Newton 11.25.830.1.864012.4.391 Reglan 1 tablet Orally Active 5 MG Orally 4 times a day befor meals and at bedtime Newton 11.25.830.1.251153.4.391.68 Aspir-81 1 tablet Orally Active 81 MG Orally Once a day Newton 840.1.666346.4.391.68 Allergies, Adverse Reactions, Alerts Substance Category Reaction Severity Reaction type Status Date Reported Comments Source N.K.D.A. Adverse Reaction Info Not Available Adverse Reaction Active 11/03/201816840.1.218395.4.391.68 Immunizations No Data Provided for This Section Results No Data Provided for This Section Pathology Reports No Data Provided for This Section Diagnostic Reports No Data Provided for This Section Consultation Notes No Data Provided for This Section Discharge Summaries No Data Provided for This Section History and Physicals No Data Provided for This Section Vital Signs Vital Sign Value Date Comments Source Weight 194.0 11/03/2018 2.16840.1.374892.4.391.68 Height 69.0 11/03/2018 2.16.840.1.571443.4.391.11.39819 Temperature Oral (F) 97.0 F 11/03/2018 2.16.840.1.834102.4.391.11.99930 Heart Rate 86 11/03/2018 2.16.840.1.767749.4.391.11.44366 Diastolic (mm Hg) 100 11/03/2018 2.16.840.1.875722.4.391.11.25003 Systolic (mm Hg) 166 11/03/2018 2.16.840.1.199156.4.391.11.78145 Weight 194.5 10/20/2018 2.16.840.1.935143.4.391.11.24238 Height 69.0 10/20/2018 2.16.840.1.812539.4.391.11.93433 Temperature Oral (F) 96.2 F 10/20/2018 2.16.840.1.931389.4.391.11.39576 Heart Rate 83 10/20/2018 2.16.840.1.162141.4.391.11.50782 Diastolic (mm Hg) 97 10/20/2018 2.16.840.1.368825.4.391.11.04838 Systolic (mm Hg) 183 10/20/2018 2.16.840.1.879988.4.391.11.77603 Weight 196.6 05/29/2018 2.16.840.1.730763.4.391.11.62168 Height 69.0 05/29/2018 2.16.840.1.329230.4.391.11.14168 Temperature Oral (F) 97.1 F 05/29/2018 2.16.840.1.320326.4.391.11.82124 Heart Rate 82 05/29/2018 2.16.840.1.825608.4.391.11.97399 Diastolic (mm Hg) 94 05/29/2018 2.16.840.1.755165.4.391.11.36650 Systolic (mm Hg) 183 05/29/2018 2.16.840.1.253270.4.391.11.00391 Encounters No Data Provided for This Section Procedures No Data Provided for This Section Assessment and Plan No Data Provided for This Section Plan of Care No Data Provided for This Section Social History No Data Provided for This Section Family History No Data Provided for This Section Advance Directives No Data Provided for This Section Functional Status No Data Provided for This Section
[2019-04-22] MEDS ORDERED: ONDANSETRON HCL INJ 2MG/ML 2ML 2 MG/ML VIAL IV STA (20:02)
[2019-04-22 20:26] LABS: BASOPHILS % 0.3 % (0.0-1.0); EOSINOPHILS # (AUTO) 0.1 (0.0-0.4); HEMATOCRIT 32.3 % (38.2-49.6); HEMOGLOBIN 10.5 g/dL (14.0-18.0); LYMPHOCYTES # (AUTO) 1.4 (1.0-3.2); LYMPHOCYTES % 14.5 % (18.0-39.1); MEAN CORPUSCULAR HEMOGLOBIN 30.1 pg (28-32); MEAN CORPUSCULAR HGB CONC 32.5 g/dL (31-35); MEAN CORPUSCULAR VOLUME 92.6 fL (81-99); MONOCYTES % 9.7 % (4.4-11.3); NEUTROPHILS # (AUTO) 7.2 (2.1-6.9); PLATELET COUNT 172 x10e3/uL (140-360); RED BLOOD COUNT 3.49 x10e6/uL (4.3-5.7); RED CELL DISTRIBUTION WIDTH 15.1 % (11.7-14.4)
[2019-04-22] MEDS: MORPHINE SULFATE INJ 4 MG/ML INJ 1ML IV ONE (20:30)
[2019-04-22 20:43] LABS: ALBUMIN 3.6 g/dL (3.5-5.0); ALBUMIN/GLOBULIN RATIO 0.7 (0.8-2.0); ANION GAP 17.2 mmol/L (8-16); CALCIUM 9.1 mg/dL (8.4-10.2); CREATININE, SERUM 4.98 mg/dL (0.72-1.25); POTASSIUM 4.2 mmol/L (3.5-5.1)
[2019-04-22 20:44] LABS: AMYLASE 83 U/L (25-125); LIPASE 56 U/L (8-78)
[2019-04-22] MEDS ORDERED: DIATRIZOATE MEGL/DIATRIZOA SOD 30 ML BTL PO ONE (20:46)
[2019-04-22 20:50] LABS: BILIRUBIN,URINE NEGATIVE (NEGATIVE); CLARITY,URINE CLEAR (CLEAR); COLOR,URINE YELLOW (YELLOW); KETONES,URINE NEGATIVE (NEGATIVE); LEUKOCYTE ESTERASE ,URINE NEGATIVE (NEGATIVE); NITRITE,URINE NEGATIVE (NEGATIVE); URINE UROBILINOGEN 0.2 mg/dL (0.2 - 1)
[2019-04-22 20:50] LABS: CREATINE KINASE MB 5.1 ng/mL (0-5.0)
[2019-04-22 20:58] LABS: PROTEIN,URINE DIPSTICK 3+ (NEGATIVE)
--- NOTE | 2019-04-22 21:00 | NUR ---
PT STATES PAIN MEDICINE NOT WORKING AND STILL NAUSEATED. NO VOMITING NOTED. MD AWARE, NO NEW ORDERS
--- NOTE | 2019-04-22 22:00 | NUR ---
PT AWAKE ALERT SKIN W/D RESP NONLAB. NAD NOTED. PT REQUESTING ADDITIONAL PAIN MEDICATIONS, STATES HIS PAIN IN 02/16. MD AWARE. NO NEW ORDERS
[2019-04-22 22:27] LABS: BACTERIA,URINE MODERATE /HPF; EPITHELIAL CELLS,URINE FEW /LPF; RBC,URINE >50 /HPF (0-5)
--- NOTE | 2019-04-22 23:00 | NUR ---
PT PRESSED CALL [facility], STATES HE STILL HAS PAIN AND WOULD LIKE ADDITIONAL PAIN MEDICATIONS. AWAITING CT RESULTS. MD AWARE, NO NEW ORDERS
--- NOTE | 2019-04-22 23:30 | NUR ---
PT PRESSED CALL [facility], REQUESTING PAIN MEDICATIONS, PAIN 5/10. SITTING ON SIDE OF BED, AWAKE ALERT SKIN W/D RESP NONLAB. NAD NOTED. MD TO ROOM, ADVISED PER MD AWAITING CT RESULTS AND CANNOT GIVE ADDITIONAL PAIN MEDICATIONS AT THIS TIME.
--- NOTE | 2019-04-23 | Diagnostic Imaging Report ---
EXAM: CT Abdomen and Pelvis WITHOUT contrast INDICATION: Lower abdominal pain, vomiting COMPARISON: Abdominal CT 01/23/2019. TECHNIQUE: Abdomen and pelvis were scanned utilizing a multidetector helical scanner from the lung base to the pubic symphysis without administration of IV contrast. Absence of intravenous contrast decreases sensitivity for detection of focal lesions and vascular pathology. Coronal and sagittal reformations were obtained. Routine protocol was performed. IV CONTRAST: None ORAL CONTRAST: Gastroview COMPLICATIONS: None RADIATION DOSE: Total DLP: 410 mGy*cm Estimated effective dose: (DLP x 0.015 x size factor) mSv CTDIvol has been reviewed. It is below the limits set by the Radiation Protocol Committee (RPC). Dose modulation, iterative reconstruction, and/or weight based adjustment of the mA/kV was utilized to reduce the radiation dose to as low as reasonably achievable. FINDINGS: LINES and TUBES: None. LOWER THORAX: Unremarkable HEPATOBILIARY: No focal hepatic lesions. No biliary ductal dilation. GALLBLADDER: No radio-opaque stones or sludge. No wall thickening. SPLEEN: No splenomegaly. PANCREAS: No focal masses or ductal dilatation. ADRENALS: No adrenal nodules KIDNEYS/URETERS: Right kidney removed. Left kidney: No hydronephrosis. No cystic or solid mass lesions. No stones. Stable perinephric fat stranding. GI TRACT: No abnormal distention, wall thickening, or evidence of bowel obstruction. Appendix is normal. PELVIC ORGANS/BLADDER: Unremarkable. LYMPH NODES: Increased size of the extensive retroperitoneal and iliac lymph nodes compared to abdominal CT 01/23/2019, for example a 3.4 cm left periaortic lymph node was 2.1 cm, and a 2.1 cm aortocaval lymph node was 1 cm.. VESSELS: Unremarkable. PERITONEUM / RETROPERITONEUM: No free air or fluid. BONES: There are degenerative changes in the lumbar spine. SOFT TISSUES: Unremarkable. IMPRESSION: 1. Progression of retroperitoneal lymphadenopathy compared to 01/23/2019, remains concerning for malignancy. The right kidney is absent.. 2. Coronary artery calcific atherosclerotic disease. 3. Chronic left perinephric fat stranding could be due to chronic medical renal disease or possibly pyelonephritis in the appropriate clinical context. Signed by: Heath Carbajal DO on 04/22/2019 11:57 PM
--- NOTE | 2019-04-23 00:35 | NUR ---
pt vomited x 1 in emesis bag prior to discharge, advised i would speak with erp and see if we could give him something more for nausea, pt refused, states he is ready to go home. erp aware
== END 2019-04-23 00:47 | disposition home or self-care (01) ==
LOC: ER 19:57
DX: R10.32 Left lower quadrant pain (principal); R11.2 Nausea with vomiting, unspecified; N30.91 Cystitis, unspecified with hematuria; E78.5 Hyperlipidemia, unspecified; I12.0 Hypertensive chronic kidney disease with stage 5 chronic kidney disease or end stage renal disease; E11.22 Type 2 diabetes mellitus with diabetic chronic kidney disease; N18.6 End stage renal disease; Z86.73 Personal history of transient ischemic attack (TIA), and cerebral infarction without residual deficits
CPT/HCPCS: 36415; 74176; 80053; 81001; 82150; 82550; 82553; 83690; 84484; 85025; 99284; J2270; J2405

== ENCOUNTER 2019-04-27 07:49 | Emergency (ER) | payer BC ==
[~2019-04-27] VITALS: Ht 177.8 cm; Wt 85.3 kg
--- OUTSIDE RECORDS SUMMARY | 2019-04-27 07:52 | XMS REPORT | Continuity of Care Document ---
Author Author [employer] 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 Name Role Phone Auto[employer] Unavailable Unavailable Problems Problem Status Onset Date Classification Date Reported Comments Source Chronic kidney disease, stage 4 Active Problem 11/09/2018 2.16.840.1.248940.4.391.11.84809 Type 2 diabetes mellitus with diabetic chronic kidney disease Active Problem 11/09/2018 2.16.840.1.888841.4.391.11.12203 Type 2 diabetes mellitus with diabetic autonomic neuropathy Active Problem 11/09/2018 2.16.840.1.816984.4.391.11.88819 Peripheral vascular disease Active Problem 11/09/2018 2.16.840.1.609377.4.391.11.92378 Other and unspecified hyperlipidemia Active Problem 11/09/2018 2.16.840.1.783429.4.391.11.68468 Cardiomyopathy Active Problem 11/09/2018 2.16.840.1.408392.4.391.11.08133 History of CVA Active Problem 11/09/2018 2.16.840.1.570493.4.391.11.57760 Essential hypertension Active Problem 11/09/2018 2.16.840.1.234914.4.391.11.68583 Proliferative diabetic retinopathy Active Problem 11/09/2018 2.16.840.1.091723.4.391.11.45089 Gastroparesis Active Problem 11/09/2018 2.16.840.1.725996.4.391.11.28296 Diabetic retinopathy associated with controlled type 2 diabetes mellitus Active Problem 11/09/2018 2.16.840.1.432446.4.391.11.50257 Hypertensive urgency Active Problem 11/09/2018 2.16.840.1.623059.4.391.11.67242 Periaortic lymphadenopathy Active Problem 11/09/2018 2.16.840.1.798657.4.391 Elevated PSA Active Problem 11/09/2018 2.16.840.1.705250.4.391 Right carotid artery occlusion Active Problem 11/09/2018 2.16.840.1.802820.4.391 Chronic combined systolic and diastolic heart failure Active Problem 11/09/2018 2.16.840.1.539327.4.391 Acute bronchitis, unspecified organism Active Diagnosis 11/09/2018 2.16.840.1.099686.4.391 Medications Medication Details Route Status Patient Instructions Ordering Provider Order Date Source Questran 1 packet mixed with water or non-carbonated drink Orally Active 4 GM Orally Twice a day [place] 11/03/2018 2.16.840.1.191980.4.391 Promethazine-DM 5 ml as needed Orally Active 6.25-15 MG/5ML Orally every 6 hrs Newton 11/03/2018 2.16.840.1.024562.4.391 Ceftin 1 tablet Orally Active 250 MG Orally every 12 hrs Newton 11/03/2018 2.16.840.1.588456.4.391 Questran 1 packet mixed with water or non-carbonated drink Orally Active 4 GM Orally Twice a day for diarrhea Newton 10/22/2018 2.16.840.1.622193.4.391 Metoprolol Tartrate 1 tablet with food Orally Active 50 mg Orally Twice a day Newton 10/20/2018 2.16.840.1.318294.4.391 Metoprolol Tartrate 1 tablet with food Orally Active 100 mg Orally Twice a day [place] 10/20/2018 2.16.840.1.344199.4.391 Hemocyte Plus 1 capsule Orally Active 106-1 MG Orally Once a day Newton 04/24/2018 2.16.840.1.523543.4.391 Glimepiride 1 tablet with breakfast or the first main meal of the day Orally Active 4 mg Orally Once a day Newton 04/20/2018.16840.1.948665.4.391. HydrALAZINE HCl 1 tablet Orally Active 50 mg Orally BID Newton 04/20/2018 2.16840.1.949447.4.391. Lasix 1 tablet Orally Active 40 mg Orally Once a day [place] 04/20/2018.16840.1.654499.4.391 HydrALAZINE HCl 1 tablet Orally Active 100 MG Orally BID Newton 04/20/2018.16840.1.755681.4.391. Atorvastatin Calcium 1 tablet Orally Active 40 mg Orally Once a day Newton 840.1.780156.4.39168 Pantoprazole Sodium 1 tablet Orally Active 40 mg Orally twice a day (bid) Newton 11.25.830.1.174002.4.391 Reglan 1 tablet Orally Active 5 MG Orally 4 times a day befor meals and at bedtime Newton 11.25.830.1.781312.4.391 Aspir-81 1 tablet Orally Active 81 MG Orally Once a day [place] 840.1.803631.4.391.68 Allergies, Adverse Reactions, Alerts Substance Category Reaction Severity Reaction type Status Date Reported Comments Source N.K.D.A. Adverse Reaction Info Not Available Adverse Reaction Active 11/03/201816840.1.168240.4.391.68 Immunizations No Data Provided for This Section [...] Value Date Comments Source Weight 194.0 11/03/2018 2.16840.1.953293.4.391.68 Height 69.0 11/03/2018 2.16.840.1.044216.4.391.11.76059 Temperature Oral (F) 97.0 F 11/03/2018 2.16.840.1.663031.4.391.11.43416 Heart Rate 86 11/03/2018 2.16.840.1.432265.4.391.11.31163 Diastolic (mm Hg) 100 11/03/2018 2.16.840.1.205504.4.391.11.01476 Systolic (mm Hg) 166 11/03/2018 2.16.840.1.105303.4.391.11.59627 Weight 194.5 10/20/2018 2.16.840.1.411147.4.391.11.46335 Height 69.0 10/20/2018 2.16.840.1.456516.4.391.11.61024 Temperature Oral (F) 96.2 F 10/20/2018 2.16.840.1.793076.4.391.11.09749 Heart Rate 83 10/20/2018 2.16.840.1.530282.4.391.11.20802 Diastolic (mm Hg) 97 10/20/2018 2.16.840.1.211794.4.391.11.28677 Systolic (mm Hg) 183 10/20/2018 2.16.840.1.391196.4.391.11.85863 Weight 196.6 05/29/2018 2.16.840.1.726026.4.391.11.72501 Height 69.0 05/29/2018 2.16.840.1.224010.4.391.11.54753 Temperature Oral (F) 97.1 F 05/29/2018 2.16.840.1.922388.4.391.11.14269 Heart Rate 82 05/29/2018 2.16.840.1.837328.4.391.11.51039 Diastolic (mm Hg) 94 05/29/2018 2.16.840.1.464091.4.391.11.66867 Systolic (mm Hg) 183 05/29/2018 2.16.840.1.409846.4.391.11.47753 Encounters No Data Provided for This Section [...]
[2019-04-27] MEDS ORDERED: NIFEDIPINE ER30 M1 PO (08:04)
[2019-04-27] MEDS ORDERED: NITROFURANTOIN100 MG PO (08:04)
[2019-04-27] MEDS ORDERED: TYLENOL WITH C1 EACH PO (08:05)
[2019-04-27] MEDS ORDERED: ZOFRAN4 MG PO (08:05)
--- NOTE | 2019-04-27 08:55 | Diagnostic Imaging Report ---
Abdomen, 2 views. History: Abdominal pain. Findings: Air is scattered throughout nondilated small and large bowel. There is moderate retained stool. There are no air-fluid levels. There is no evidence of free air. There are no masses or abnormal calcifications. Degenerative changes are present throughout the lumbar spine. IMPRESSION: Nonobstructive bowel gas pattern. Signed by: Nnamdi Yee on 04/27/2019 8:51 AM
[2019-04-27] MEDS ORDERED: LACTULOSE SYRUP 20 GM/30 ML UDC PO ONE (09:30)
[2019-04-27] MEDS ORDERED: METOCLOPRAMIDE HCL 10 MG/2ML VIAL IM ONE (10:00)
[2019-04-27] MEDS ORDERED: CITRATE OF MAGNESIA 300ML BOTTLE PO ONE (10:00)
[2019-04-27 10:46] VITALS: BP 185/90
== END 2019-04-27 10:55 | disposition home or self-care (01) ==
LOC: ER 07:49
DX: R10.32 Left lower quadrant pain (principal); R11.0 Nausea; K59.00 Constipation, unspecified
CPT/HCPCS: 74019; 99283; J2765

== ENCOUNTER 2019-05-19 16:59 | Emergency (ER) | payer BC ==
[~2019-05-19] VITALS: Ht 177.8 cm; Wt 85.3 kg
[~2019-05-19 16:59] MED LIST changes: +NIFEDIPINE ER30 M1 PO; +NITROFURANTOIN100 MG PO; +TYLENOL WITH C1 EACH PO; +ZOFRAN4 MG PO
--- OUTSIDE RECORDS SUMMARY | 2019-05-19 17:03 | XMS REPORT | Continuity of Care Document ---
Author Author [facility] Organization [facility] Address Unknown Phone Unavailable Care Team Providers Care Public Relations Senior Associate Name Role Phone [facility] Unavailable Unavailable Problems Problem Status Onset Date Classification Date Reported Comments Source Chronic kidney disease, stage 4 Active Problem 11/09/2018 [id number] Type 2 diabetes mellitus with diabetic chronic kidney disease Active Problem 11/09/2018 2.16.840.1.239698.4.391.11.69692 Type 2 diabetes mellitus with diabetic autonomic neuropathy Active Problem 11/09/2018 2.16.840.1.464462.4.391.11.51243 Peripheral vascular disease Active Problem 11/09/2018 2.16.840.1.369942.4.391.11.72383 Other and unspecified hyperlipidemia Active Problem 11/09/2018 2.16.840.1.227870.4.391.11.35332 Cardiomyopathy Active Problem 11/09/2018 2.16.840.1.898565.4.391.11.61677 History of CVA Active Problem 11/09/2018 2.16.840.1.689047.4.391.11.25755 Essential hypertension Active Problem 11/09/2018 2.16.840.1.955792.4.391.11.81999 Proliferative diabetic retinopathy Active Problem 11/09/2018 2.16.840.1.623771.4.391.11.32553 Gastroparesis Active Problem 11/09/2018 2.16.840.1.078194.4.391.11.98785 Diabetic retinopathy associated with controlled type 2 diabetes mellitus Active Problem 11/09/2018 2.16.840.1.825113.4.391.11.05193 Hypertensive urgency Active Problem 11/09/2018 2.16.840.1.661765.4.391.11.81450 Periaortic lymphadenopathy Active Problem 11/09/2018 2.16.840.1.826247.4.391. Elevated PSA Active Problem 11/09/2018 2.16.840.1.190203.4.391. Right carotid artery occlusion Active Problem 11/09/2018 2.16.840.1.892094.4.391 Chronic combined systolic and diastolic heart failure Active Problem 11/09/2018 2.16.840.1.775431.4.391 Acute bronchitis, unspecified organism Active Diagnosis 11/09/2018 2.16.0.1.296819.4.391 Anemia, chronic disease Active Problem 04/27/2019 [facility] CKD Active Problem 04/27/2019 [facility] Cellulitis Active Problem 04/27/2019 [facility] Dehydration Active Problem 04/27/2019 [facility] ESRD Active Problem 04/27/2019 [facility] Hyperkalemia Active Problem 04/27/2019 [facility] Renal failure Active Problem 04/27/2019 [facility] UTI Active Problem 04/27/2019 [facility] Vomiting Active Problem 04/27/2019 [facility] Medications Medication Details Route Status Patient Instructions Ordering Provider Order Date Source Doxycycline Hyclate 100 Mg Capsule, 100 Mg Oral Twice A Day as needed for Redness Active 03/27/2019 [facility] Questran 1 packet mixed with water or non-carbonated drink Orally Active 4 GM Orally Twice a day [place] 11/03/2018 2.16840.1.883172.4.391 Promethazine-DM 5 ml as needed Orally Active 6.25-15 MG/5ML Orally every 6 hrs [place] 11/03/2018 2.16840.1.108451.4.391 Ceftin 1 tablet Orally Active 250 MG Orally every 12 hrs [place] 11/03/2018 2.16.840.1.009871.4.391.11.38911 Questran 1 packet mixed with water or non-carbonated drink Orally Active 4 GM Orally Twice a day for diarrhea [place] 10/22/2018 2.16.840.1.366924.4.391.11 Metoprolol Tartrate 1 tablet with food Orally Active 50 mg Orally Twice a day [place] 10/20/2018 2.16.840.1.053336.4.391.11. Metoprolol Tartrate 1 tablet with food Orally Active 100 mg Orally Twice a day [place] 10/20/2018 2.16.840.1.541037.4.391.11. Hemocyte Plus 1 capsule Orally Active 106-1 MG Orally Once a day [facility] 04/24/2018 2.16.840.1.468189.4.391.11 Glimepiride 1 tablet with breakfast or the first main meal of the day Orally Active 4 mg Orally Once a day [place] 04/20/2018 2.16840.1.207904.4.391.11.96550 HydrALAZINE HCl 1 tablet Orally Active 50 mg Orally BID [facility] 04/20/2018 2.16840.1.395918.4.391.. Lasix 1 tablet Orally Active 40 mg Orally Once a day [place] 04/20/2018 2.16.840.1.116737.4.391.11.45907 HydrALAZINE HCl 1 tablet Orally Active 100 MG Orally BID [place] 04/20/2018 2.16.840.1.218230.4.391.11. Atorvastatin Calcium 1 tablet Orally Active 40 mg Orally Once a day [place] 16840.1.134815.4.391.11 Pantoprazole Sodium 1 tablet Orally Active 40 mg Orally twice a day (bid) [facility] 840.1.356958.4.391. Reglan 1 tablet Orally Active 5 MG Orally 4 times a day befor meals and at bedtime [place] 16840.1.501489.4.391.11 Aspir-81 1 tablet Orally Active 81 MG Orally Once a day [place] 2.16.840.1.650407.4.391.11.98780 Atorvastatin Calcium 40 Mg Tablet Daily Active [facility] Hydralazine Hcl 50 Mg Tablet Twice A Day Active [facility] Metoclopramide Hcl 5 Mg Tablet Before Meals And At Bedtime Active [facility] Acetaminophen With Codeine (Tylenol With Codeine #3 Tablet) 1 Each Tablet Every 6 Hours as needed for Abdominal Pain Active [facility] Nifedipine (Nifedipine Er) 30 Mg Tab.er.24 Daily Active [facility] Nitrofurantoin Macrocrystal (Nitrofurantoin) 100 Mg Capsule Twice A Day Active [facility] Ondansetron Hcl (Zofran*) 4 Mg Tablet Every 6 Hours as needed for Nausea Active [facility] Allergies, Adverse Reactions, Alerts Substance Category Reaction Severity Reaction type Status Date Reported Comments Source N.K.D.A. Adverse Reaction Info Not Available Adverse Reaction Active 11/03/2018 2.16.840.1.436123.4.391.11.61488 Immunizations No Data Provided for This Section Results Order Name Results Value Reference Range Date Interpretation Comments Source Urine color determination YELLOW YELLOW 04/22/2019 [facility] Urine clarity CLEAR CLEAR 04/22/2019 [facility] Specific gravity of Urine by Test strip 1.020 1.010 - 1.025 04/22/2019 [facility] Urine pH measurement by automated test strip 8 5 - 7 04/22/2019 [facility] Urine leukocyte esterase detection by automated test strip NEGATIVE NEGATIVE 04/22/2019 [facility] Urine nitrite detection by automated test strip NEGATIVE NEGATIVE 04/22/2019 [facility] Urine protein detection by automated test strip 3+ NEGATIVE 04/22/2019 [facility] Urine glucose detection by automated test strip NEGATIVE NEGATIVE 04/22/2019 [facility] Urine ketones detection by automated test strip NEGATIVE NEGATIVE 04/22/2019 [facility] Urine urobilinogen measurement by test strip (mass/volume) 0.2 0.2 - 1 04/22/2019 [facility] Urine total bilirubin detection NEGATIVE NEGATIVE 04/22/2019 [facility] Urine erythrocytes detection 3+ NEGATIVE 04/22/2019 [facility] Automated urine sediment leukocyte count by microscopy (number/high power field) 6-10 0 - 5 04/22/2019 [facility] Erythrocytes detection in urine sediment by light microscopy >50 0 - 5 04/22/2019 [facility] Bacteria detection in urine sediment by light microscopy MODERATE NONE 04/22/2019 [facility] Epithelial cells detection in urine sediment by light microscopy FEW NONE 04/22/2019 [facility] Blood leukocytes automated count (number/volume) 9.75 4.8 - 10.8 04/22/2019 [facility] Blood erythrocytes automated count (number/volume) 3.49 4.3 - 5.7 04/22/2019 [facility] Blood hemoglobin measurement (moles/volume) 10.5 14.0 - 18.0 04/22/2019 [facility] Automated blood hematocrit (volume fraction) 32.3 38.2 - 49.6 04/22/2019 [facility] Automated erythrocyte mean corpuscular volume 92.6 81 - 99 04/22/2019 [facility] Automated erythrocyte mean corpuscular hemoglobin (mass per erythrocyte) 30.1 28 - 32 04/22/2019 [facility] Automated erythrocyte mean corpuscular hemoglobin concentration measurement (mass/volume) 32.5 31 - 35 04/22/2019 [facility] RDW BldCo-Rto 15.1 11.7 - 14.4 04/22/2019 [facility] Automated blood platelet count (count/volume) 172 140 - 360 04/22/2019 [facility] Automated blood segmented neutrophil count as percentage of total leukocytes 74.0 38.7 - 80.0 04/22/2019 [facility] Automated blood lymphocyte count as percentage ot total leukocytes 14.5 18.0 - 39.1 04/22/2019 [facility] Automated blood monocyte count as percentage of total leukocytes 9.7 4.4 - 11.3 04/22/2019 [facility] Automated blood eosinophil count as percentage of total leukocytes 1.0 0.0 - 6.0 04/22/2019 [facility] Automated blood basophil count as percentage of total leukocytes 0.3 0.0 - 1.0 04/22/2019 [facility] IM GRANULOCYTES % 0.5 0.0 - 1.0 04/22/2019 [facility] Automated blood neutrophil count 7.2 2.1 - 6.9 04/22/2019 [facility] Blood lymphocytes count (number/volume) 1.4 1.0 - 3.2 04/22/2019 [facility] Blood monocytes automated count (number/volume) 1.0 0.2 - 0.8 04/22/2019 [facility] Automated blood eosinophil count 0.1 0.0 - 0.4 04/22/2019 [facility] Automated blood basophil count (count/volume) 0.0 0.0 - 0.1 04/22/2019 [facility] Absolute Immature Granulocyte (auto 0.05 0 - 0.1 04/22/2019 [facility] Serum or plasma sodium measurement (moles/volume) 135 136 - 145 04/22/2019 [facility] Serum or plasma potassium measurement (moles/volume) 4.2 3.5 - 5.1 04/22/2019 [facility] Serum or plasma chloride measurement (moles/volume) 98 98 - 107 04/22/2019 [facility] Serum or plasma carbon dioxide, total measurement (moles/volume) 24 22 - 29 04/22/2019 [facility] Serum or plasma anion gap 17.2 8 - 16 04/22/2019 [facility] Serum or plasma urea nitrogen measurement (mass/volume) 47 7 - 26 04/22/2019 [facility] Serum or plasma creatinine measurement (mass/volume) 4.98 0.72 - 1.25 04/22/2019 [facility] Serum or plasma urea nitrogen/creatinine mass ratio 9 6 - 25 04/22/2019 [facility] Estimated glomerular filtration rate (GFR) determination 12 60 04/22/2019 [facility] Glucose measurement 92 74 - 118 04/22/2019 [facility] Serum or plasma calcium measurement (mass/volume) 9.1 8.4 - 10.2 04/22/2019 [facility] Serum or plasma total bilirubin measurement (mass/volume) 0.5 0.2 - 1.2 04/22/2019 [facility] Aspartate Amino Transf (AST/SGOT) 18 5 - 34 04/22/2019 [facility] Serum or plasma alanine aminotransferase measurement (enzymatic activity/volume) 10 0 - 55 04/22/2019 [facility] Serum or plasma protein measurement (mass/volume) 8.9 6.5 - 8.1 04/22/2019 [facility] Serum or plasma albumin measurement (mass/volume) 3.6 3.5 - 5.0 04/22/2019 [facility] Plasma globulin measurement (mass/volume) 5.3 2.3 - 3.5 04/22/2019 [facility] Serum or plasma albumin/globulin mass ratio 0.7 0.8 - 2.0 04/22/2019 [facility] Serum or plasma alkaline phosphatase measurement (enzymatic activity/volume) 80 40 - 150 04/22/2019 [facility] Serum or plasma creatine kinase measurement (enzymatic activity/volume) 105 30 - 200 04/22/2019 [facility] Serum or plasma creatine kinase MB measurement (mass/volume) 5.10 0 - 5.0 04/22/2019 [facility] Troponin I measurement by highly sensitive enzyme immunoassay 0.042 0 - 0.300 04/22/2019 [facility] Serum or plasma amylase measurement (enzymatic activity/volume) 83 25 - 125 04/22/2019 [facility] Serum or plasma lipase measurement (enzymatic activity/volume) 56 8 - 78 04/22/2019 [facility] Capillary blood glucose measurement by glucometer (mass/volume) 195 70 - 120 03/28/2019 [facility] Serum hepatitis B virus surface antibody assay by radioimmunoassay (units/volume) <3.1 03/24/2019 [facility] Serum or plasma hepatitis B virus surface antigen detection by immunoassay Negative 03/24/2019 [facility] Serum or plasma hepatitis B virus core IgM antibody detection by immunoassay Negative 03/24/2019 [facility] Serum hepatitis C virus antibody detection 1.0 03/24/2019 [facility] Prothrombin time (PT) in platelet poor plasma by coagulation assay 14.8 11.9 - 14.5 03/23/2019 [facility] INR in Platelet poor plasma by Coagulation assay 1.11 03/23/2019 [facility] Serum or plasma iron measurement (mass/volume) 20 65 - 175 03/23/2019 [facility] Serum or plasma iron binding capacity measurement (mass/volume) 137 261 - 478 03/23/2019 [facility] Serum or plasma iron saturation measurement (mass fraction) 15 15 - 50 03/23/2019 [facility] Serum or plasma transferrin measurement (mass/volume) 98 174 - 364 03/23/2019 [facility] Serum or plasma ferritin measurement (mass/volume) 557.71 21.81 - 274.66 03/23/2019 [facility] Phosphorus measurement 7.1 2.3 - 4.7 03/22/2019 [facility] Serum or plasma magnesium measurement (mass/volume) 1.7 1.3 - 2.1 03/22/2019 [facility] Amorphous sediment detection in urine sediment by light microscopy MODERATE FEW 03/21/2019 [facility] Random serum or plasma vancomycin measurement (mass/volume) 13.6 02/21/2019 [facility] Hemoglobin A1c Percent 5.5 4.0 - 7.0 02/19/2019 [facility] Activated partial thromboplastin time (aPTT) in platelet poor plasma bycoagulation assay 40.4 23.8 - 35.5 02/18/2019 [facility] Lactic Acid Level 6.2 4.5 - 19.8 02/18/2019 [facility] Blood culture NO GROWTH AFTER 5 DAYS, FINAL REPORT 02/18/2019 [facility] Urine protein measurement (mass/volume) 409.9 1 - 14 01/25/2019 [facility] Urine creatinine measurement (mass/volume) 69.46 63 - 166 01/25/2019 [facility] Random urine protein/creatinine ratio 5.00 01/25/2019 [facility] Automated reticulocyte count as percentage of total erythrocytes 1.6 0.6 - 2.1 01/24/2019 [facility] Serum or plasma lactate dehydrogenase measurement (enzymatic activity/volume) 208 125 - 220 01/24/2019 [facility] Blood cobalamin (vitamin B12) measurement (mass/volume) 366 213 - 816 01/24/2019 [facility] Serum or plasma folate measurement (mass/volume) 9.2 7.0 - 15.4 01/24/2019 [facility] Serum or plasma haptoglobin measurement (mass/volume) 150 34 - 200 01/24/2019 [facility] Serum or plasma carcinoembryonic antigen measurement (mass/volume) 2.8 0.0 - 4.7 01/24/2019 [facility] Serum or plasma prostate specific antigen measurement (mass/volume) 11.8 0.0 - 4.0 01/24/2019 [facility] Pathology Reports No Data Provided for This Section Diagnostic Reports No Data Provided for This Section Consultation Notes No Data Provided for This Section Discharge Summaries No Data Provided for This Section History and Physicals No Data Provided for This Section Vital Signs Vital Sign Value Date Comments Source Weight 194.0 11/03/2018 2.16.840.1.326570.4.391.11.36804 Height 69.0 11/03/2018 2.16.840.1.084562.4.391.11.06464 Temperature Oral (F) 97.0 F 11/03/2018 2.16.840.1.253136.4.391.11.13174 Heart Rate 86 11/03/2018 2.16.840.1.140457.4.391.11.93391 Diastolic (mm Hg) 100 11/03/2018 2.16.840.1.917369.4.391.11.23114 Systolic (mm Hg) 166 11/03/2018 2.16.840.1.824520.4.391.11.32223 Weight 194.5 10/20/2018 2.16.840.1.288369.4.391.11.13353 Height 69.0 10/20/2018 2.16.840.1.338743.4.391.11.32106 Temperature Oral (F) 96.2 F 10/20/2018 2.16.840.1.277900.4.391.11.03182 Heart Rate 83 10/20/2018 2.16.840.1.152802.4.391.11.01810 Diastolic (mm Hg) 97 10/20/2018 2.16.840.1.901423.4.391.11.95910 Systolic (mm Hg) 183 10/20/2018 2.16.840.1.413632.4.391.11.93186 Weight 196.6 05/29/2018 2.16.840.1.061627.4.391.11.60254 Height 69.0 05/29/2018 2.16.840.1.673806.4.391.11.02774 Temperature Oral (F) 97.1 F 05/29/2018 2.16.840.1.398405.4.391.11.75296 Heart Rate 82 05/29/2018 2.16.840.1.320699.4.391.11.02051 Diastolic (mm Hg) 94 05/29/2018 2.16.840.1.372317.4.391.11.35442 Systolic (mm Hg) 183 05/29/2018 2.16.840.1.054498.4.391.11.32508 Encounters Location Location Details Encounter Type Encounter Number Reason For Visit Attending Provider ADM Date DC Date Status Source Discharged Inpatient [id number] CLARKE BOONE MD 01/23/2019 01/27/2019 [facility] Discharged Inpatient [id number] AMANDO ETIENNE MD 02/18/2019 02/21/2019 [facility] Discharged Inpatient [id number] JHONNY LYE MD 03/21/2019 03/28/2019 [facility] Departed Emergency Room [id number] MOISES ADAMES MD 04/22/2019 04/23/2019 [facility] Departed Emergency Room [id number] ASTON LOPEZ MD 04/27/2019 04/27/2019 [facility] Procedures Procedure Code Date Perfomer Comments Source CT of abdomen and pelvis without contrast [id number] 04/22/2019 [facility] TRANSFUSE NONAUT RED BLOOD CELLS IN CENTRAL VEIN, PERC [id number] 03/27/2019 [facility] PERFORMANCE OF URINARY FILTRATION, <6 HRS/DAY [id number] 03/26/2019 [facility] PERFORMANCE OF URINARY FILTRATION, <6 HRS/DAY [id number] 03/24/2019 [facility] PERFORMANCE OF URINARY FILTRATION, <6 HRS/DAY [id number] 03/23/2019 [facility] INSERT OF TUNNEL VAD INTO CHEST SUBCU/FASCIA, PERC APPROACH [id number] 03/23/2019 [facility] INSERTION OF INFUSION DEV INTO SUP VENA CAVA, PERC APPROACH [id number] 03/23/2019 [facility] TRANSFUSE NONAUT RED BLOOD CELLS IN PERIPH VEIN, PERC [id number] 02/18/2019 ETIENNE [facility] TRANSFUSE NONAUT RED BLOOD CELLS IN PERIPH VEIN, PERC [id number] 01/25/2019 AMANUEL [facility] Ultrasound, renal [id number] 01/24/[address] [facility] [address] of abdomen and pelvis without contrast [id number] 01/23/2019 [facility] Assessment and Plan No Data Provided for This Section Plan of Care Plan of Care Date Source Discharge Date 04/27/19 10:55am Disposition HOME, SELF-CARE Condition at Discharge Stable Instructions/Education Provided Abdominal Pain - Adult Constipation - Adult Forms Provided Work/School Excuse Prescriptions See Medication Section Referrals Md Manuel 04/27/2019 [facility] Discharge Date 04/23/19 12:47am Disposition HOME, SELF-CARE Condition at Discharge Stable Instructions/Education Provided Abdominal Pain - Adult Forms Provided Work/School Excuse Prescriptions See Medication Section Referrals BATOOL VITAL MD Order Date: Call for an appointment Address: [address] [place] [address] [address] [place] [address] Md Manuel Order Date: Call for an appointment STEPHON GERONIMO MD Order Date: Call for an appointment Address: [address] [place] [address], [place] [address] Additional Instructions/Education take medications as prescribed follow-up with oncologist 04/23/2019 [facility] Social History Social History Date Source Smoking Status Start Date Stop Date Never Smoker 04/27/2019 [facility] Family History No Data Provided for This Section Advance Directives Order Name Results Value Date Source Advance Directives Advance Directives Directive Response Recorded Date/Time Does the patient have an advance directive? No 03/22/19 12:00am If yes, is advance directive on file with [facility]? No 04/27/19 8:04am If not on file with [facility] will patient provide a copy? No 04/27/19 8:04am Do you have a Directive to Physician? No 04/27/19 8:04am Do you have a Medical Power of [employer]? No 04/27/19 8:04am Do you have an out of hospital Do Not Resuscitate Order? No 04/27/19 8:04am Do you have any special needs we should be aware of? No 04/27/19 8:04am Do you have a support person here with you today? No 04/27/19 8:04am Did patient receive Notice of Privacy Practices? No 04/27/19 8:04am Did patient receive patient rights and responsibilities? No 04/27/19 8:04am 04/27/2019 [facility] Advance Directives Advance Directives Directive Response Recorded Date/Time Does the patient have an advance directive? No 03/22/19 12:00am Do you have a Directive to Physician? No 04/22/19 8:54pm Do you have a Medical Power of Geopol[employer] Teacher? No 04/22/19 8:54pm Do you have an out of hospital Do Not Resuscitate Order? No 04/22/19 8:54pm Do you have any special needs we should be aware of? No 04/22/19 8:54pm Do you have a support person here with you today? No 04/22/19 8:54pm Did patient receive Notice of Privacy Practices? Yes 04/22/19 8:54pm Did patient receive patient rights and responsibilities? Yes 04/22/19 8:54pm 04/23/2019 [facility] Functional Status No Data Provided for This Section
[2019-05-19] MEDS ORDERED: SODIUM CHLORIDE 0.9% 1000ML 1,000 ML IV STA (17:34)
[2019-05-19] MEDS ORDERED: MORPHINE SULFATE INJ 4 MG/ML INJ 1ML IV NR (17:45)
[2019-05-19] MEDS ORDERED: ONDANSETRON HCL INJ 2MG/ML 2ML 2 MG/ML VIAL IV NR (18:00)
[2019-05-19] MEDS ORDERED: SODIUM CHLORIDE 0.9% 1000ML 1,000 ML IV SCH (18:00)
[2019-05-19] MEDS ORDERED: PANTOPRAZOLE 40 MG 10ML VIAL IV NR (18:00)
[2019-05-19 18:08] LABS: BASOPHILS % 0.3 % (0.0-1.0); EOSINOPHILS # (AUTO) 0.1 (0.0-0.4); EOSINOPHILS % 0.9 % (0.0-6.0); HEMOGLOBIN 9.6 g/dL (14.0-18.0); LYMPHOCYTES # (AUTO) 1.3 (1.0-3.2); LYMPHOCYTES % 20.3 % (18.0-39.1); MEAN CORPUSCULAR HEMOGLOBIN 29.9 pg (28-32); MEAN CORPUSCULAR VOLUME 93.5 fL (81-99); MONOCYTES # (AUTO) 0.8 (0.2-0.8); MONOCYTES % 12.7 % (4.4-11.3); NEUTROPHILS # (AUTO) 4.3 (2.1-6.9); NEUTROPHILS % 65.3 % (38.7-80.0); PLATELET COUNT 162 x10e3/uL (140-360); RED BLOOD COUNT 3.21 x10e6/uL (4.3-5.7); RED CELL DISTRIBUTION WIDTH 16.1 % (11.7-14.4)
[2019-05-19 18:18] LABS: INR 1.04; PROTHROMBIN TIME 14.1 seconds (11.9-14.5)
[2019-05-19 18:19] LABS: PARTIAL THROMBOPLASTIN TIME 36.8 seconds (23.8-35.5)
[2019-05-19 18:27] LABS: ALBUMIN 3.2 g/dL (3.5-5.0); ALBUMIN/GLOBULIN RATIO 0.6 (0.8-2.0); CALCIUM 8.6 mg/dL (8.4-10.2); CREATININE, SERUM 3.73 mg/dL (0.72-1.25)
--- NOTE | 2019-05-19 18:59 | NUR ---
DR. HARMON AWARE OF ELEVATED BP. NO ORDERS AT THIS TIME
[2019-05-19 19:01] LABS: BILIRUBIN,URINE SMALL (NEGATIVE); CLARITY,URINE SL CLOUDY (CLEAR); COLOR,URINE YELLOW (YELLOW); KETONES,URINE NEGATIVE (NEGATIVE); LEUKOCYTE ESTERASE ,URINE NEGATIVE (NEGATIVE); NITRITE,URINE NEGATIVE (NEGATIVE); PROTEIN,URINE DIPSTICK 1+ (NEGATIVE); URINE UROBILINOGEN 1 mg/dL (0.2 - 1)
--- NOTE | 2019-05-19 19:13 | NUR ---
BEDSIDE REPORT TO CELE Arevalo
[2019-05-19 19:33] LABS: BACTERIA,URINE RARE /HPF; EPITHELIAL CELLS,URINE FEW /LPF
[2019-05-19 19:34] LABS: AMORPHOUS SEDIMENT,URINE RARE (FEW)
[2019-05-19] MEDS ORDERED: DICYCLOMINE HCL 20 MG/2 ML VIAL IM ONE (21:15)
[2019-05-19] MEDS ORDERED: ONDANSETRON HCL INJ 2MG/ML 2ML 2 MG/ML VIAL IV STA (21:26)
--- NOTE | 2019-05-19 22:36 | Diagnostic Imaging Report ---
EXAM: CT Abdomen and Pelvis WITHOUT contrast INDICATION: Pain and vomiting. COMPARISON: None. TECHNIQUE: Abdomen and pelvis were scanned utilizing a multidetector helical scanner from the lung base to the pubic symphysis without administration of IV contrast. Absence of intravenous contrast decreases sensitivity for detection of focal lesions and vascular pathology. Coronal and sagittal reformations were obtained. Routine protocol was performed. IV CONTRAST: None. ORAL CONTRAST: Water RADIATION DOSE: Total DLP: 412 mGy *cm Estimated effective dose: (DLP x 0.015 x size factor) mSv COMPLICATIONS: None FINDINGS: LINES and TUBES: None. LOWER THORAX: Unremarkable HEPATOBILIARY: No focal hepatic lesions. No biliary ductal dilation. GALLBLADDER: No radio-opaque stones or sludge. No wall thickening. SPLEEN: No splenomegaly. PANCREAS: No focal masses or ductal dilatation. ADRENALS: No adrenal nodules. KIDNEYS/URETERS: The right kidney is absent. Left kidney: No hydronephrosis. No cystic or solid mass lesions. No stones. GI TRACT: No abnormal distention, wall thickening, or evidence of bowel obstruction. Appendix is normal. PELVIC ORGANS/BLADDER: The prostate measures 4.9 x 4.2 cm and contains coarse calcifications. LYMPH NODES: Significant interval change in previously described retroperitoneal lymphadenopathy cervical for instance, lymph node in the left retroperitoneum measures 4.3 x 3.9 cm on image 43 series 2. A left external iliac lymph node measures 2.9 x 2.7 cm on images 69 series 2, previously 3.0 x 2.7 cm on images 68 series 2. VESSELS: There is moderate atherosclerotic disease in the aorta and major arterial branches. PERITONEUM / RETROPERITONEUM: No free air or fluid. BONES: No acute osseous abnormality. SOFT TISSUES: Unremarkable. IMPRESSION: 1. Stable examination. Redemonstration of retroperitoneal and pelvic lymphadenopathy concerning for lymphoproliferative disease. Signed by: Dr. Tierra Muro M.D. on 05/19/2019 10:32 PM
[2019-05-19] MEDS ORDERED: ACETAMINOPHEN 1000 MG/100 ML 100 ML IV ONE (23:11)
--- NOTE | 2019-05-19 23:16 | NUR ---
PT RETCHING, NO EMESIS PRODUCTION NOTED, TEMP 101.6 MD AWARE. MEDICATED WITH OFIRMEV AND ZOFRAN
--- NOTE | 2019-05-20 00:40 | NUR ---
PT STATES FEELS BETTER AFTER MEDICATIONS AND WANTS TO GO HOME. MD DISPO COMPLETE. AWAKE ALERT SKIN W/D RESP NONLAB. NAD NOTED.
== END 2019-05-20 00:40 | disposition home or self-care (01) ==
LOC: ER 16:59
DX: R10.10 Upper abdominal pain, unspecified (principal); R11.2 Nausea with vomiting, unspecified; I12.0 Hypertensive chronic kidney disease with stage 5 chronic kidney disease or end stage renal disease; E11.22 Type 2 diabetes mellitus with diabetic chronic kidney disease; N18.6 End stage renal disease; Z99.2 Dependence on renal dialysis; E78.5 Hyperlipidemia, unspecified; Z86.73 Personal history of transient ischemic attack (TIA), and cerebral infarction without residual deficits
CPT/HCPCS: 36415; 74176; 80053; 81001; 82550; 82553; 84484; 85025; 85610; 85730; 87086; 93005; 99284; C9113; J0131; J0500; J2270; J2405; J7030

== ENCOUNTER 2019-06-02 15:31 | Observation (INO) | payer BC ==
[~2019-06-02] VITALS: Ht 177.8 cm; Wt 79.4 kg
--- NOTE | 2019-06-02 15:58 | NUR ---
6 WKS ON DIALYSIS.
[2019-06-02 16:06] LABS: BASOPHILS % 0.4 % (0.0-1.0); EOSINOPHILS # (AUTO) 0.2 (0.0-0.4); EOSINOPHILS % 2.8 % (0.0-6.0); HEMATOCRIT 32.2 % (38.2-49.6); HEMOGLOBIN 10.2 g/dL (14.0-18.0); LYMPHOCYTES # (AUTO) 1.4 (1.0-3.2); LYMPHOCYTES % 21.2 % (18.0-39.1); MEAN CORPUSCULAR HEMOGLOBIN 29.3 pg (28-32); MEAN CORPUSCULAR HGB CONC 31.7 g/dL (31-35); MEAN CORPUSCULAR VOLUME 92.5 fL (81-99); MONOCYTES # (AUTO) 0.7 (0.2-0.8); MONOCYTES % 9.8 % (4.4-11.3); NEUTROPHILS # (AUTO) 4.4 (2.1-6.9); NEUTROPHILS % 65.4 % (38.7-80.0); PLATELET COUNT 231 x10e3/uL (140-360); RED BLOOD COUNT 3.48 x10e6/uL (4.3-5.7); RED CELL DISTRIBUTION WIDTH 16.5 % (11.7-14.4)
[2019-06-02 16:10] LABS: INR 0.96; PROTHROMBIN TIME 13.3 seconds (11.9-14.5)
[2019-06-02 16:11] LABS: PARTIAL THROMBOPLASTIN TIME 35.6 seconds (23.8-35.5)
[2019-06-02 16:19] LABS: ALBUMIN 3.5 g/dL (3.5-5.0); ALBUMIN/GLOBULIN RATIO 0.7 (0.8-2.0); ANION GAP 20.2 mmol/L (8-16); CALCIUM 9.2 mg/dL (8.4-10.2); CREATININE, SERUM 5.64 mg/dL (0.72-1.25); POTASSIUM 4.2 mmol/L (3.5-5.1)
[2019-06-02 16:20] LABS: AMYLASE 82 U/L (25-125); LIPASE 22 U/L (8-78)
[2019-06-02 16:27] LABS: CREATINE KINASE MB 7.1 ng/mL (0-5.0)
[2019-06-02] MEDS ORDERED: METOCLOPRAMIDE HCL 10 MG/2ML VIAL IV NR (16:30)
[2019-06-02] MEDS ORDERED: DIPHENHYDRAMINE HCL INJ 50 MG/ML VIAL IV NR (16:30)
[2019-06-02] MEDS ORDERED: DIPHENHYDRAMINE HCL INJ 50 MG/ML VIAL ONE (16:32)
[2019-06-02] MEDS ORDERED: METOCLOPRAMIDE HCL 10 MG/2ML VIAL ONE (16:32)
[2019-06-02] MEDS ORDERED: MORPHINE SULFATE INJ 4 MG/ML INJ 1ML IV NR (16:45)
--- NOTE | 2019-06-02 16:50 | Diagnostic Imaging Report ---
EXAMINATION: CHEST SINGLE (PORTABLE) INDICATION: Abdominal and chest pain. COMPARISON: Chest radiograph 03/23/2019. FINDINGS: TUBES and LINES: Right IJ tunneled hemodialysis catheter terminates near the cavoatrial junction. LUNGS: Lungs are moderately inflated. Lungs are clear. There is no evidence of pneumonia or pulmonary edema. PLEURA: No pleural effusion or pneumothorax. HEART AND MEDIASTINUM: The cardiomediastinal silhouette is unremarkable. BONES AND SOFT TISSUES: No acute osseous abnormality. UPPER ABDOMEN: No free air under the diaphragm. IMPRESSION: No acute radiographic abnormality. Signed by: Dr. Amor Pierce MD on 06/02/2019 4:46 PM
[2019-06-02] MEDS ORDERED: ONDANSETRON HCL INJ 2MG/ML 2ML 2 MG/ML VIAL IV PRN (18:15)
[2019-06-02] MEDS ORDERED: DEXTROSE 50% SYRINGE 50 ML IV PRN (18:15)
[2019-06-02] MEDS ORDERED: DIPHENHYDRAMINE HCL INJ 50 MG/ML VIAL IV PRN (18:15)
--- OUTSIDE RECORDS SUMMARY | 2019-06-02 18:16 | XMS REPORT | Continuity of Care Document ---
Author Author [employer] Organization [employer] Address Unknown Phone Unavailable Care Team Providers Care [employer] Name Role Phone [employer] Unavailable Unavailable Problems Problem Status Onset Date Classification Date Reported Comments Source Chronic kidney disease, stage 4 Active Problem 11/09/2018 2.16.840.1.816943.4.391.11.53890 Type 2 diabetes mellitus with diabetic chronic kidney disease Active Diagnosis 05/20/2019 2.16.840.1.533403.4.391.11.58468 Type 2 diabetes mellitus with diabetic autonomic neuropathy Active Problem 11/09/2018 2.16.840.1.093515.4.391.11.82795 Peripheral vascular disease Active Diagnosis 05/20/2019 2.16.840.1.321452.4.391.11.75528 Other and unspecified hyperlipidemia Active Diagnosis 05/20/2019 2.16.840.1.100130.4.391.11.01875 Cardiomyopathy Active Diagnosis 05/20/2019 2.16.840.1.776539.4.391.11.05293 History of CVA Active Problem 11/09/2018 2.16.840.1.519652.4.391.11.71538 Essential hypertension Active Problem 11/09/2018 2.16.840.1.961229.4.391.11.77542 Proliferative diabetic retinopathy Active Problem 05/20/2019 2.16.840.1.203143.4.391.11.44528 Gastroparesis Active Diagnosis 05/20/2019 2.16.840.1.557947.4.391.11.04888 Diabetic retinopathy associated with controlled type 2 diabetes mellitus Active Diagnosis 05/20/2019 2.16.840.1.015525.4.391.11.93493 Hypertensive urgency Active Diagnosis 05/20/2019 2.16.840.1.115349.4.391.1179500 Periaortic lymphadenopathy Active Diagnosis 05/20/2019 2.16.840.1.360033.4.391.11.12213 Elevated PSA Active Diagnosis 05/20/2019 2.16.840.1.847386.4.391.11.50933 Right carotid artery occlusion Active Diagnosis 05/20/2019 2.16.840.1.492666.4.391.11.36731 Chronic combined systolic and diastolic heart failure Active Diagnosis 05/20/2019 2.16.840.1.383311.4.391.1131921 Acute bronchitis, unspecified organism Active Diagnosis 11/09/2018 2.16.840.1.904159.4.391.1193041 Type 2 diabetes mellitus with diabetic autonomic (poly)neuropathy Active Diagnosis 05/20/2019 2.16.840.1.860582.4.391.1187395 History of CVA (cerebrovascular accident) Active Diagnosis 05/20/2019 2.16.840.1.914759.4.391.22279 Essential (primary) hypertension Active Problem 05/20/2019 2.16.840.1.303652.4.391.11.97001 ESRD (end stage renal disease) Active Problem 05/20/2019 2.16.840.1.538363.4.391. Hemodialysis status Active Problem 05/20/2019 2.16.840.1.753309.4.391.11.66932 Encounter for general adult medical examination with abnormal findings Active Diagnosis 05/20/2019 2.16.840.1.499670.4.391.1191627 Encounter for screening Active Diagnosis 05/20/2019 2.16.840.1.925352.4.391.11.49271 Chronic kidney disease, stage 4 (severe) Active Problem 05/20/2019 2.16.840.1.363247.4.391.1140119 Lower abdominal pain Active Diagnosis 05/20/2019 2.16.840.1.142728.4.391.11.49273 Chronic constipation Active Diagnosis 05/20/2019 2.16.840.1.461032.4.391..63884 Anemia, chronic disease Active Problem 04/27/2019 [facility] CKD Active Problem 04/27/2019 [facility] Cellulitis Active Problem 04/27/2019 [facility] Dehydration Active Problem 04/27/2019 [facility] ESRD Active Problem 04/27/2019 [facility] Hyperkalemia Active Problem 04/27/2019 [facility] Renal failure Active Problem 04/27/2019 [facility] UTI Active Problem 04/27/2019 [facility] Vomiting Active Problem 04/27/2019 [facility] Medications Medication Details Route Status Patient Instructions Ordering Provider Order Date Source Linzess 1 capsule Orally Active 290 MCG Orally Once a day [place] 04/24/2019 2.16.840.1.567978.4.391.68 Doxycycline Hyclate 100 Mg Capsule, 100 Mg Oral Twice A Day as needed for Redness Active 03/27/2019 [facility] Questran 1 packet mixed with water or non-carbonated drink Orally Active 4 GM Orally Twice a day [facility] 11/03/2018 2.16.840.1.059966.4.391. Promethazine-DM 5 ml as needed Orally Active 6.25-15 MG/5ML Orally every 6 hrs [facility] 11/03/2018 2.16.840.1.107771.4.391.68 Ceftin 1 tablet Orally Active 250 MG Orally every 12 hrs [facility] 11/03/2018 2.16.840.1.805514.4.391. Questran 1 packet mixed with water or non-carbonated drink Orally Active 4 GM Orally Twice a day for diarrhea [place] 10/22/2018 2.16.840.1.166665.4.391. Metoprolol Tartrate 1 tablet with food Orally Active 50 mg Orally Twice a day [place] 10/20/2018 2.16.840.1.582861.4.391.11.92178 Metoprolol Tartrate 1 tablet with food Orally Active 100 mg Orally Twice a day [place] 10/20/2018 2.16.840.1.220204.4.391. Metoprolol Tartrate 1 tablet with food Orally Active 100 mg Orally Twice a day [facility] 10/20/2018 2.16.840.1.688063.4.391.68 Hemocyte Plus 1 capsule Orally Active 106-1 MG Orally Once a day [facility] 04/24/2018 2.16.840.1.021186.4.391. Glimepiride 1 tablet with breakfast or the first main meal of the day Orally Active 4 mg Orally Once a day [place] 04/20/2018 2.16.840.1.393224.4.391. HydrALAZINE HCl 1 tablet Orally Active 50 mg Orally BID [place] 04/20/2018 2.16840.1.848899.4.391.68 Lasix 1 tablet Orally Active 40 mg Orally Once a day [place] 04/20/2018 2.16840.1.385065.4.391. HydrALAZINE HCl 1 tablet Orally Active 100 MG Orally BID [place] 04/20/2018 2.16.840.1.523136.4.391.68 Atorvastatin Calcium 1 tablet Orally Active 40 mg Orally Once a day [facility] 840.1.011811.4.391.68 Pantoprazole Sodium 1 tablet Orally Active 40 mg Orally twice a day (bid) [place] 11.25.830.1.489441.4.391. Reglan 1 tablet Orally Active 5 MG Orally 4 times a day befor meals and at bedtime [facility] 11.25.830.1.075939.4.391.68 Aspir-81 1 tablet Orally Active 81 MG Orally Once a day [place] 840.1.132491.4.391.68 Atorvastatin Calcium 40 Mg Tablet Daily Active [facility] Hydralazine Hcl 50 Mg Tablet Twice A Day Active [facility] Metoclopramide Hcl 5 Mg Tablet Before Meals And At Bedtime Active [facility] Acetaminophen With Codeine (Tylenol With Codeine #3 Tablet) 1 Each Tablet Every 6 Hours as needed for Abdominal Pain Active [facility] Nifedipine (Nifedipine Er) 30 Mg Tab.er.[address] [facility] Nitrofurantoin Macrocrystal (Nitrofurantoin) 100 Mg Capsule Twice A Day Active [facility] Ondansetron Hcl (Zofran*) 4 Mg Tablet Every 6 Hours as needed for Nausea Active [facility] Allergies, Adverse Reactions, Alerts Substance Category Reaction Severity Reaction type Status Date Reported Comments Source N.K.D.A. Adverse Reaction Info Not Available Adverse Reaction 05/01/2019 2.16.840.1.506543.4.391.11.10391 Immunizations No Data Provided for This Section Results Order Name Results Value Reference Range Date Interpretation Comments Source Urine color determination YELLOW YELLOW 04/22/2019 [facility] Urine clarity CLEAR CLEAR 04/22/2019 [facility] Specific gravity of Urine by Test strip 1.020 1.010 - 1.025 04/22/2019 [facility] Urine pH measurement by automated test strip 8 5 - 7 04/22/2019 [facility] Urine leukocyte esterase detection by automated test strip NEGATIVE NEGATIVE 04/22/2019 [facility] Urine nitrite detection by automated test strip NEGATIVE NEGATIVE 04/22/2019 [facility] Urine protein detection by automated test strip 3+ NEGATIVE 04/22/2019 [facility] Urine glucose detection by automated test strip NEGATIVE NEGATIVE 04/22/2019 [facility] Urine ketones detection by automated test strip NEGATIVE NEGATIVE 04/22/2019 [facility] Urine urobilinogen measurement by test strip (mass/volume) 0.2 0.2 - 1 04/22/2019 [facility] Urine total bilirubin detection NEGATIVE NEGATIVE 04/22/2019 [facility] Urine erythrocytes detection 3+ NEGATIVE 04/22/2019 [facility] Automated urine sediment leukocyte count by microscopy (number/high power field) 6-10 0 - 5 04/22/2019 [facility] Erythrocytes detection in urine sediment by light microscopy >50 0 - 5 04/22/2019 [facility] Bacteria detection in urine sediment by light microscopy MODERATE NONE 04/22/2019 [facility] Epithelial cells detection in urine sediment by light microscopy FEW NONE 04/22/2019 [facility] Blood leukocytes automated count (number/volume) 9.75 4.8 - 10.8 04/22/2019 [facility] Blood erythrocytes automated count (number/volume) 3.49 4.3 - 5.7 04/22/2019 [facility] Blood hemoglobin measurement (moles/volume) 10.5 14.0 - 18.0 04/22/2019 [facility] Automated blood hematocrit (volume fraction) 32.3 38.2 - 49.6 04/22/2019 [facility] Automated erythrocyte mean corpuscular volume 92.6 81 - 99 04/22/2019 [facility] Automated erythrocyte mean corpuscular hemoglobin (mass per erythrocyte) 30.1 28 - 32 04/22/2019 [facility] Automated erythrocyte mean corpuscular hemoglobin concentration measurement (mass/volume) 32.5 31 - 35 04/22/2019 [facility] RDW BldCo-Rto 15.1 11.7 - 14.4 04/22/2019 [facility] Automated blood platelet count (count/volume) 172 140 - 360 04/22/2019 [facility] Automated blood segmented neutrophil count as percentage of total leukocytes 74.0 38.7 - 80.0 04/22/2019 [facility] Automated blood lymphocyte count as percentage ot total leukocytes 14.5 18.0 - 39.1 04/22/2019 [facility] Automated blood monocyte count as percentage of total leukocytes 9.7 4.4 - 11.3 04/22/2019 [facility] Automated blood eosinophil count as percentage of total leukocytes 1.0 0.0 - 6.0 04/22/2019 [facility] Automated blood basophil count as percentage of total leukocytes 0.3 0.0 - 1.0 04/22/2019 [facility] IM GRANULOCYTES % 0.5 0.0 - 1.0 04/22/2019 [facility] Automated blood neutrophil count 7.2 2.1 - 6.9 04/22/2019 [facility] Blood lymphocytes count (number/volume) 1.4 1.0 - 3.2 04/22/2019 [facility] Blood monocytes automated count (number/volume) 1.0 0.2 - 0.8 04/22/2019 [facility] Automated blood eosinophil count 0.1 0.0 - 0.4 04/22/2019 [facility] Automated blood basophil count (count/volume) 0.0 0.0 - 0.1 04/22/2019 [facility] Absolute Immature Granulocyte (auto 0.05 0 - 0.1 04/22/2019 [facility] Serum or plasma sodium measurement (moles/volume) 135 136 - 145 04/22/2019 [facility] Serum or plasma potassium measurement (moles/volume) 4.2 3.5 - 5.1 04/22/2019 [facility] Serum or plasma chloride measurement (moles/volume) 98 98 - 107 04/22/2019 [facility] Serum or plasma carbon dioxide, total measurement (moles/volume) 24 22 - 29 04/22/2019 [facility] Serum or plasma anion gap 17.2 8 - 16 04/22/2019 [facility] Serum or plasma urea nitrogen measurement (mass/volume) 47 7 - 26 04/22/2019 [facility] Serum or plasma creatinine measurement (mass/volume) 4.98 0.72 - 1.25 04/22/2019 [facility] Serum or plasma urea nitrogen/creatinine mass ratio 9 6 - 25 04/22/2019 [facility] Estimated glomerular filtration rate (GFR) determination 12 60 04/22/2019 [facility] Glucose measurement 92 74 - 118 04/22/2019 [facility] Serum or plasma calcium measurement (mass/volume) 9.1 8.4 - 10.2 04/22/2019 [facility] Serum or plasma total bilirubin measurement (mass/volume) 0.5 0.2 - 1.2 04/22/2019 [facility] Aspartate Amino Transf (AST/SGOT) 18 5 - 34 04/22/2019 [facility] Serum or plasma alanine aminotransferase measurement (enzymatic activity/volume) 10 0 - 55 04/22/2019 [facility] Serum or plasma protein measurement (mass/volume) 8.9 6.5 - 8.1 04/22/2019 [facility] Serum or plasma albumin measurement (mass/volume) 3.6 3.5 - 5.0 04/22/2019 [facility] Plasma globulin measurement (mass/volume) 5.3 2.3 - 3.5 04/22/2019 [facility] Serum or plasma albumin/globulin mass ratio 0.7 0.8 - 2.0 04/22/2019 [facility] Serum or plasma alkaline phosphatase measurement (enzymatic activity/volume) 80 40 - 150 04/22/2019 [facility] Serum or plasma creatine kinase measurement (enzymatic activity/volume) 105 30 - 200 04/22/2019 [facility] Serum or plasma creatine kinase MB measurement (mass/volume) 5.10 0 - 5.0 04/22/2019 [facility] Troponin I measurement by highly sensitive enzyme immunoassay 0.042 0 - 0.300 04/22/2019 [facility] Serum or plasma amylase measurement (enzymatic activity/volume) 83 25 - 125 04/22/2019 [facility] Serum or plasma lipase measurement (enzymatic activity/volume) 56 8 - 78 04/22/2019 [facility] Capillary blood glucose measurement by glucometer (mass/volume) 195 70 - 120 03/28/2019 [facility] Serum hepatitis B virus surface antibody assay by radioimmunoassay (units/volume) <3.1 03/24/2019 [facility] Serum or plasma hepatitis B virus surface antigen detection by immunoassay Negative 03/24/2019 [facility] Serum or plasma hepatitis B virus core IgM antibody detection by immunoassay Negative 03/24/2019 [facility] Serum hepatitis C virus antibody detection 1.0 03/24/2019 [facility] Prothrombin time (PT) in platelet poor plasma by coagulation assay 14.8 11.9 - 14.5 03/23/2019 [facility] INR in Platelet poor plasma by Coagulation assay 1.11 03/23/2019 [facility] Serum or plasma iron measurement (mass/volume) 20 65 - 175 03/23/2019 [facility] Serum or plasma iron binding capacity measurement (mass/volume) 137 261 - 478 03/23/2019 [facility] Serum or plasma iron saturation measurement (mass fraction) 15 15 - 50 03/23/2019 [facility] Serum or plasma transferrin measurement (mass/volume) 98 174 - 364 03/23/2019 [facility] Serum or plasma ferritin measurement (mass/volume) 557.71 21.81 - 274.66 03/23/2019 [facility] Phosphorus measurement 7.1 2.3 - 4.7 03/22/2019 [facility] Serum or plasma magnesium measurement (mass/volume) 1.7 1.3 - 2.1 03/22/2019 [facility] Amorphous sediment detection in urine sediment by light microscopy MODERATE FEW 03/21/2019 [facility] Random serum or plasma vancomycin measurement (mass/volume) 13.6 02/21/2019 [facility] Hemoglobin A1c Percent 5.5 4.0 - 7.0 02/19/2019 [facility] Activated partial thromboplastin time (aPTT) in platelet poor plasma bycoagulation assay 40.4 23.8 - 35.5 02/18/2019 [facility] Lactic Acid Level 6.2 4.5 - 19.8 02/18/2019 [facility] Blood culture NO GROWTH AFTER 5 DAYS, FINAL REPORT 02/18/2019 [facility] Urine protein measurement (mass/volume) 409.9 1 - 14 01/25/2019 [facility] Urine creatinine measurement (mass/volume) 69.46 63 - 166 01/25/2019 [facility] Random urine protein/creatinine ratio 5.00 01/25/2019 [facility] Automated reticulocyte count as percentage of total erythrocytes 1.6 0.6 - 2.1 01/24/2019 [facility] Serum or plasma lactate dehydrogenase measurement (enzymatic activity/volume) 208 125 - 220 01/24/2019 [facility] Blood cobalamin (vitamin B12) measurement (mass/volume) 366 213 - 816 01/24/2019 [facility] Serum or plasma folate measurement (mass/volume) 9.2 7.0 - 15.4 01/24/2019 [facility] Serum or plasma haptoglobin measurement (mass/volume) 150 34 - 200 01/24/2019 [facility] Serum or plasma carcinoembryonic antigen measurement (mass/volume) 2.8 0.0 - 4.7 01/24/2019 [facility] Serum or plasma prostate specific antigen measurement (mass/volume) 11.8 0.0 - 4.0 01/24/2019 [facility] Pathology Reports No Data Provided for This Section Diagnostic Reports No Data Provided for This Section Consultation Notes No Data Provided for This Section Discharge Summaries No Data Provided for This Section History and Physicals No Data Provided for This Section Vital Signs Vital Sign Value Date Comments Source Weight 181.3 05/01/2019 2.16.840.1.099867.4.391..22841 Height 69.0 05/01/2019 2.16.840.1.991609.4.391.11.29095 Temperature Oral (F) 97.8 F 05/01/2019 2.16.840.1.514007.4.391.11.55696 Heart Rate 78 05/01/2019 2.16.840.1.493728.4.391.11.37360 Diastolic (mm Hg) 94 05/01/2019 2.16.840.1.464332.4.391.11.10411 Systolic (mm Hg) 182 05/01/2019 2.16.840.1.100091.4.391.11.23756 Weight 175.3 04/24/2019 2.16.840.1.323476.4.391.11.74402 Height 69.0 04/24/2019 2.16.840.1.269802.4.391.11.26160 Temperature Oral (F) 97.3 F 04/24/2019 2.16.840.1.499289.4.391.11.63017 Heart Rate 71 04/24/2019 2.16.840.1.909739.4.391.11.31817 Diastolic (mm Hg) 87 04/24/2019 2.16.840.1.405191.4.391.11.62473 Systolic (mm Hg) 152 04/24/2019 2.16.840.1.220246.4.391.11.32270 Weight 194.0 11/03/2018 2.16.840.1.302031.4.391.11.74002 Height 69.0 11/03/2018 2.16.840.1.685947.4.391.11.13583 Temperature Oral (F) 97.0 F 11/03/2018 2.16.840.1.266302.4.391.11.52060 Heart Rate 86 11/03/2018 2.16.840.1.621572.4.391.11.76799 Diastolic (mm Hg) 100 11/03/2018 2.16.840.1.952809.4.391.11.21941 Systolic (mm Hg) 166 11/03/2018 2.16.840.1.252843.4.391.11.76714 Weight 194.5 10/20/2018 2.16.840.1.882478.4.391.11.30069 Height 69.0 10/20/2018 2.16.840.1.449961.4.391.11.36605 Temperature Oral (F) 96.2 F 10/20/2018 2.16.840.1.811912.4.391.11.36480 Heart Rate 83 10/20/2018 2.16.840.1.520872.4.391.11.48885 Diastolic (mm Hg) 97 10/20/2018 2.16.840.1.167138.4.391.11.74086 Systolic (mm Hg) 183 10/20/2018 2.16.840.1.606593.4.391.11.73119 Weight 196.6 05/29/2018 2.16.840.1.417632.4.391.11.72038 Height 69.0 05/29/2018 2.16.840.1.139022.4.391.11.54369 Temperature Oral (F) 97.1 F 05/29/2018 2.16.840.1.198501.4.391.11.27708 Heart Rate 82 05/29/2018 2.16.840.1.431453.4.391.11.23376 Diastolic (mm Hg) 94 05/29/2018 2.16.840.1.813619.4.391.11.51573 Systolic (mm Hg) 183 05/29/2018 2.16.840.1.611452.4.391.11.53709 Encounters Location Location Details Encounter Type Encounter Number Reason For Visit Attending Provider ADM Date DC Date Status Source Discharged Inpatient [id number] CLARKE BOONE MD 01/23/2019 01/27/2019 [facility] Discharged Inpatient [id number] AMANDO ETIENNE MD 02/18/2019 02/21/2019 [facility] Discharged Inpatient [id number] JHONNY LEY MD 03/21/2019 03/28/2019 [facility] Departed Emergency Room [id number] MOISES ADAMES MD 04/22/2019 04/23/2019 [facility] Departed Emergency Room [id number] ASTON LOPEZ MD 04/27/2019 04/27/2019 [facility] Procedures Procedure Code Date Perfomer Comments Source CT of abdomen and pelvis without contrast [id number] 04/22/2019 [facility] TRANSFUSE NONAUT RED BLOOD CELLS IN CENTRAL VEIN, PERC [id number] 03/27/2019 [facility] PERFORMANCE OF URINARY FILTRATION, <6 HRS/DAY [id number] 03/26/2019 [facility] INSERT OF TUNNEL VAD INTO CHEST SUBCU/FASCIA, PERC APPROACH [id number] 03/23/2019 [facility] INSERTION OF INFUSION DEV INTO SUP VENA CAVA, PERC APPROACH [id number] 03/23/2019 [facility] TRANSFUSE NONAUT RED BLOOD CELLS IN PERIPH VEIN, PERC [id number] 02/18/2019 [facility] Ultrasound, renal [id number] 01/24/2019 [facility] Assessment and Plan No Data Provided for This Section Plan of Care Plan of Care Date Source Discharge Date 04/27/19 10:55am Disposition HOME, SELF-CARE Condition at Discharge Stable Instructions/Education Provided Abdominal Pain - Adult Constipation - Adult Forms Provided Work/School Excuse Prescriptions See Medication Section Referrals Md Manuel 04/27/2019 [facility] Discharge Date 04/23/19 12:47am Disposition HOME, SELF-CARE Condition at Discharge Stable Instructions/Education Provided Abdominal Pain - Adult Forms Provided Work/School Excuse Prescriptions See Medication Section Referrals BATOOL VITAL MD Order Date: Call for an appointment Address: [address] [place] [address] [address] [place] [address] Md Manuel Order Date: Call for an appointment STEPHON GERONIMO MD Order Date: Call for an appointment Address: [address] [place] [address], [place], [place] [id number] Additional Instructions/Education take medications as prescribed follow-up with oncologist 04/23/2019 [facility] Social History Social History Date Source Smoking Status Start Date Stop Date Never Smoker 04/27/2019 [facility] Family History No Data Provided for This Section Advance Directives Order Name Results Value Date Source Advance Directives Advance Directives Directive Response Recorded Date/Time Does the patient have an advance directive? No 03/22/19 12:00am If yes, is advance directive on file with [facility]? No 04/27/19 8:04am If not on file with [facility] will patient provide a copy? No 04/27/19 8:04am Do you have a Directive to Physician? No 04/27/19 8:04am Do you have a Medical Power of Animal Laboratory Helper? No 04/27/19 8:04am Do you have an [...] rights and responsibilities? No 04/27/19 8:04am 04/27/2019 [facility] Advance Directives Advance Directives Directive Response Recorded Date/Time Does the patient have an advance directive? No 03/22/19 12:00am Do you have a Directive to Physician? No 04/22/19 8:54pm Do you have a Medical Power of Animal Laboratory Helper? No 04/22/19 8:54pm Do you have an [...] rights and responsibilities? Yes 04/22/19 8:54pm 04/23/2019 [facility] Functional Status No Data Provided for This Section
--- OUTSIDE RECORDS SUMMARY | 2019-06-02 18:17 | XMS REPORT ---
Author Author Cornell Glez [facility] eClinicalWorks Address Unknown Phone Unavailable Care Team Providers Care Evp Operations Name Role Phone Cornell Glez CP Unavailable Allergies, Adverse Reactions, Alerts Substance Reaction Event Type N.K.D.A. 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 Active Assessment Periaortic lymphadenopathy R59.0 Active Assessment Elevated PSA R97.20 Active Assessment Diabetic retinopathy associated with controlled type 2 diabetes mellitus E11.319 Active Assessment History of CVA (cerebrovascular accident) Z86.73 Active Problem Essential (primary) hypertension I10 Active Assessment Chronic combined systolic and diastolic heart failure I50.42 Active Problem History of CVA (cerebrovascular accident) Z86.73 Active Assessment Right carotid artery occlusion I65.21 Active Problem Gastroparesis K31.84 Active Problem Right carotid artery occlusion I65.21 Active Problem Periaortic lymphadenopathy R59.0 Active Problem ESRD (end stage renal disease) N18.6 Active Problem Cardiomyopathy I42.9 Active Assessment Type 2 diabetes mellitus with diabetic chronic kidney disease E11.22 Active Assessment Essential (primary) hypertension I10 Active Problem Hemodialysis status Z99.2 Active Assessment Other and unspecified hyperlipidemia E78.5 Active Problem Proliferative diabetic retinopathy 362.02 Active Problem Diabetic retinopathy associated with controlled type 2 diabetes mellitus E11.319 Active Problem Peripheral vascular disease I73.9 Active Problem Other and unspecified hyperlipidemia E78.5 Active Assessment Hemodialysis status Z99.2 Active Problem Hypertensive urgency I16.0 Active Assessment ESRD (end stage renal disease) N18.6 Active Problem Elevated PSA R97.20 Active Assessment Encounter for general adult medical examination with abnormal findings Z00.01 Active Assessment Encounter for screening Z13.9 Active Problem 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 Active Problem Type 2 diabetes mellitus with diabetic chronic kidney disease E11.22 Active Problem Chronic combined systolic and diastolic heart failure I50.42 Active Problem Chronic kidney disease, stage 4 (severe) N18.4 Active Medications Medication Code System Code Instructions Start Date End Date Status Dosage Hemocyte Plus [facility] 60505610308 106-1 MG Orally Once a day April 24, 2018 Active 1 capsule Atorvastatin Calcium [facility] 51870368381 40 mg Orally Once a day Active 1 tablet Pantoprazole Sodium [facility] 27907829886 40 mg Orally twice a day (bid) Active [address] [facility] 68350111256 4 GM Orally Twice a day Nov 03, 2018 Active 1 packet mixed with water or non-carbonated drink Glimepiride [facility] 41317304084 4 mg Orally Once a day April 20, 2018 Active 1 tablet with breakfast or the first main meal of the day Aspir-[address] [facility] 27058208399 81 MG Orally Once a day Active 1 tablet Metoprolol Tartrate [facility] 17141749685 100 mg Orally Twice a day Oct 20, 2018 Active 1 tablet with food Questran [facility] 78150553725 4 GM Orally Twice a day for diarrhea Oct 22, 2018 Active 1 packet mixed with water or non-carbonated drink HydrALAZINE HCl [facility] 00770953222 100 MG Orally BID April 20, 2018 Active [address] [facility] 55215026711 5 MG Orally 4 times a day befor meals and at bedtime Active [address] [facility] 71653133798 40 mg Orally Once a day April 20, 2018 Active [address] [facility] 53400516962 290 MCG Orally Once a day April 24, 2019 Jun 23, 2019 Active 1 capsule Vital Signs Date/Time: May 01, 2019 BMI 26.77 Index Weight 181.3 lbs Height 69.0 in Temperature 97.8 F Cardiac Monitoring Heart Rate 78 /min Blood Pressure Diastolic 94 mm Hg Blood Pressure Systolic 182 mm Hg Results No Known Results Summary Purpose eClinicalWorks Submission
--- OUTSIDE RECORDS SUMMARY | 2019-06-02 18:17 | XMS REPORT ---
Author Author Cornell Glez Organization e[employer] Address Unknown Phone Unavailable Care Team Providers Care Box Maker Paperboard Name Role Phone Cornell Glez CP Unavailable Allergies, Adverse Reactions, Alerts Substance Reaction Event Type N.K.D.A. Info Not Available Non Drug Allergy Problems Problem Type Condition Code Onset Dates Condition Status Problem Gastroparesis K31.84 Active Problem Right carotid artery occlusion I65.21 Active Problem Periaortic lymphadenopathy R59.0 Active Problem ESRD (end stage renal disease) N18.6 Active Assessment ESRD (end stage renal disease) N18.6 Active Problem Cardiomyopathy I42.9 Active Assessment Hemodialysis status Z99.2 Active Assessment Type 2 diabetes mellitus with diabetic chronic kidney disease E11.22 Active Problem Hemodialysis status Z99.2 Active Problem Proliferative diabetic retinopathy 362.02 Active Problem Diabetic retinopathy associated with controlled type 2 diabetes mellitus E11.319 Active Problem Peripheral vascular disease I73.9 Active Problem Other and unspecified hyperlipidemia E78.5 Active Problem Hypertensive urgency I16.0 Active Problem Elevated PSA R97.20 Active Assessment Lower abdominal pain R10.30 Active Problem 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 03641151780 100 MG Orally BID April 20, 2018 Active 1 tablet Atorvastatin Calcium ND 78276471637 40 mg Orally Once a day Active 1 tablet Pantoprazole Sodium ND 62802231234 40 mg Orally twice a day (bid) Active 1 tablet Glimepiride [facility] 27202456432 4 mg Orally Once a day April 20, 2018 Active 1 tablet with breakfast or the first main meal of the day Hemocyte Plus [facility] 30847138762 106-1 MG Orally Once a day April 24, 2018 Active 1 capsule Questran [facility] 19605426092 4 GM Orally Twice a day for diarrhea Oct 22, 2018 Active 1 packet mixed with water or non-carbonated drink Metoprolol Tartrate [facility] 04909791771 100 mg Orally Twice a day Oct 20, 2018 Active 1 tablet with food Lasix [facility] 07155140456 40 mg Orally Once a day April 20, 2018 Active 1 tablet Reglan [facility] 44253007865 5 MG Orally 4 times a day befor meals and at bedtime Active 1 tablet Linzess [facility] 72981508183 290 MCG Orally Once a day April 24, 2019 Jun 23, 2019 Active 1 capsule Aspir-[address] [facility] 90242140781 81 MG Orally Once a day Active 1 tablet Questran [facility] 18387222239 4 GM Orally Twice a day Nov 03, 2018 Active 1 packet mixed with water or non-carbonated drink Vital Signs Date/Time: April 24, 2019 BMI 25.88 Index Weight 175.3 lbs Height 69.0 in Temperature 97.3 F Cardiac Monitoring Heart Rate 71 /min Blood Pressure Diastolic 87 mm Hg Blood Pressure Systolic 152 mm Hg Results No Known Results Summary Purpose eClinicalWorks Submission
[2019-06-02 19:23] LABS: BILIRUBIN,URINE NEGATIVE (NEGATIVE); CLARITY,URINE CLEAR (CLEAR); COLOR,URINE YELLOW (YELLOW); KETONES,URINE NEGATIVE (NEGATIVE); LEUKOCYTE ESTERASE ,URINE NEGATIVE (NEGATIVE); NITRITE,URINE NEGATIVE (NEGATIVE); URINE UROBILINOGEN 0.2 mg/dL (0.2 - 1)
[2019-06-02 19:25] LABS: PROTEIN,URINE DIPSTICK 3+ (NEGATIVE)
[2019-06-02 19:46] LABS: BACTERIA,URINE RARE /HPF; EPITHELIAL CELLS,URINE RARE /LPF; WBC,URINE (MAN) 0-5 /HPF (0-5)
[2019-06-02 19:48] VITALS: BP 168/88
[2019-06-02 20:00] VITALS: BP 168/88
[2019-06-02] MEDS: INSULIN LISPRO 100 UNIT/1 ML 3ML VIAL SQ SCH (21:00)
[2019-06-02] MEDS: MORPHINE SULFATE 2 MG/ML SYR 1ML IV PRN (21:14)
[2019-06-02 21:44] VITALS: BP 168/88
[2019-06-03] VITALS (8 sets, daily range): BP systolic 150–166; BP diastolic 79–94
[2019-06-03] MEDS: METOCLOPRAMIDE HCL 10 MG/2ML VIAL IV SCH ×4 (00:26→16:53)
[2019-06-03 06:18] LABS: BASOPHILS % 0.6 % (0.0-1.0); EOSINOPHILS # (AUTO) 0.2 (0.0-0.4); EOSINOPHILS % 3.6 % (0.0-6.0); HEMATOCRIT 28.4 % (38.2-49.6); HEMOGLOBIN 8.6 g/dL (14.0-18.0); LYMPHOCYTES # (AUTO) 1.7 (1.0-3.2); MEAN CORPUSCULAR HEMOGLOBIN 28.7 pg (28-32); MEAN CORPUSCULAR HGB CONC 30.3 g/dL (31-35); MEAN CORPUSCULAR VOLUME 94.7 fL (81-99); MONOCYTES # (AUTO) 0.7 (0.2-0.8); MONOCYTES % 12.3 % (4.4-11.3); NEUTROPHILS # (AUTO) 2.8 (2.1-6.9); NEUTROPHILS % 52.1 % (38.7-80.0); PLATELET COUNT 208 x10e3/uL (140-360); RED CELL DISTRIBUTION WIDTH 16.4 % (11.7-14.4)
[2019-06-03 06:50] LABS: ALBUMIN 2.8 g/dL (3.5-5.0); ALBUMIN/GLOBULIN RATIO 0.6 (0.8-2.0); ANION GAP 13.6 mmol/L (8-16); CALCIUM 8.5 mg/dL (8.4-10.2); CREATININE, SERUM 5.52 mg/dL (0.72-1.25); POTASSIUM 4.6 mmol/L (3.5-5.1)
--- NOTE | 2019-06-03 07:08 | NUR ---
PATIENT IN BED RESTING WITH NO DISTRESS. DENIED PAIN OR DISCOMFORT. RIGHT UPPER CHEST DIALYSIS PORT WITH DRESSING DRY AND INTACT. BED IN LOWER POSITION, CALL LIGHT AT REACH.
[2019-06-03] MEDS: INSULIN LISPRO 100 UNIT/1 ML 3ML VIAL SQ SCH ×4 (07:30→20:07)
--- NOTE | 2019-06-03 16:05 | Consultation ---
DATE OF CONSULTATION: 06/03/2019 Renal Consultation REASON FOR CONSULTATION: End-stage renal disease. HISTORY OF PRESENT ILLNESS: A 58-year-old male with end-stage renal disease, last hemodialysis was on 05/31/2019, presented to [facility] with nausea, vomiting for 1 day. The patient states approximately every 3 weeks he develops episodes of nausea, vomiting, requiring him to come to the hospital. The patient is scheduled to have EGD with locomotive engineer diesel. The patient at this time is on liquid diet, feels much improved and wants to advance his diet. The patient denies any shortness of breath at this time. REVIEW OF SYSTEMS: A 12-point review of systems completed. All systems negative other than mentioned in the HPI. PAST MEDICAL HISTORY: 1. End-stage renal disease, on hemodialysis Tuesday, , Tuesday. 2. Diabetes type 2. 3. Hypertension. 4. Dyslipidemia. PAST SURGICAL HISTORY: Tunneled dialysis catheter. SOCIAL HISTORY: No tobacco. No alcohol. No IV drugs. FAMILY HISTORY: Positive for hypertension, diabetes. ALLERGIES: NO KNOWN DRUG ALLERGIES. CURRENT MEDICATIONS: See list, includes Reglan 10 mg IV q.6 hours. PHYSICAL EXAMINATION: VITAL SIGNS: Blood pressure 163/83, pulse 66, respiratory rate 18, temperature 97.5. GENERAL: No apparent distress. HEENT: Oropharynx clear. No scleral icterus. No peripheral edema. NECK: Supple. No elevation in jugular venous pressure. No lymphadenopathy. CHEST: Clear to auscultation anteriorly bilaterally. CARDIOVASCULAR: Regular rhythm. ABDOMEN: Soft. Positive bowel sounds. No tenderness. No rebound. EXTREMITIES: No edema. No clubbing. No cyanosis. SKIN: Warm. LABORATORY DATA: Sodium 137, potassium 4.6, chloride 102, CO2 of 26, BUN 42, creatinine 5.5, albumin 2.8. White count 5.3, hemoglobin 8.6, hematocrit 28.4. ASSESSMENT AND PLAN: 1. End-stage renal disease. The patient does not need any urgent dialysis at this time. We will plan for dialysis in the morning if he remains in the hospital. 2. Anemia secondary to chronic kidney disease. We will start Epogen if the patient in the hospital. 3. Euvolemic on exam. 4. Hypertension. Resume home medications. 5. Diabetes per primary team. 6. Diabetic gastroparesis. We will decrease Reglan. MD MITCHELL Dash /[id number]
--- NOTE | 2019-06-03 19:03 | NUR ---
dr robertson ordered dialysis to be done today, pt normally has T//S and missed saturdays appt. dialysis nurse made aware MD ordered must be done today. dialysis nurse on unit.
[2019-06-03] MEDS ORDERED: MANNITOL 25% 12.5GM/50 ML VIAL IV PRN (19:30)
[2019-06-03] MEDS ORDERED: HEPARIN SOD (PORCINE) 1000 UNIT/ML 10ML MDV IM ONE (19:30)
[2019-06-03] MEDS ORDERED: ALBUMIN 25% 12.5GM 0.25 GM/ML BTL IV PRN (19:30)
[2019-06-03] MEDS ORDERED: SODIUM CHLORIDE 0.9% 1000ML 1,000 ML IV SCH (19:30)
[2019-06-03] MEDS ORDERED: HEPARIN SOD (PORCINE) 1000 UNIT/ML SDV IV PRN (19:45)
[2019-06-03] MEDS: MORPHINE SULFATE 2 MG/ML SYR 1ML IV PRN (23:40)
[2019-06-04] VITALS (8 sets, daily range): BP systolic 99–175; BP diastolic 69–88
[2019-06-04] MEDS: METOCLOPRAMIDE HCL 10 MG/2ML VIAL IV SCH ×3 (00:03→12:45)
--- NOTE | 2019-06-04 00:26 | NUR ---
patient tolerated dialysis well, 2 liters were removed and no need for mannitol or albumin. Addendum: 06/04/19 at 0026 by Jeanette Andrade RN Amended: Links added.
[2019-06-04 05:17] LABS: BASOPHILS % 0.6 % (0.0-1.0); EOSINOPHILS # (AUTO) 0.1 (0.0-0.4); EOSINOPHILS % 2.9 % (0.0-6.0); HEMATOCRIT 29.8 % (38.2-49.6); HEMOGLOBIN 9.2 g/dL (14.0-18.0); LYMPHOCYTES # (AUTO) 1.2 (1.0-3.2); LYMPHOCYTES % 24.1 % (18.0-39.1); MEAN CORPUSCULAR HEMOGLOBIN 28.8 pg (28-32); MEAN CORPUSCULAR HGB CONC 30.9 g/dL (31-35); MEAN CORPUSCULAR VOLUME 93.4 fL (81-99); MONOCYTES # (AUTO) 0.6 (0.2-0.8); NEUTROPHILS # (AUTO) 2.9 (2.1-6.9); PLATELET COUNT 173 x10e3/uL (140-360); RED BLOOD COUNT 3.19 x10e6/uL (4.3-5.7)
[2019-06-04 05:41] LABS: CALCIUM 8.5 mg/dL (8.4-10.2); CREATININE, SERUM 3.01 mg/dL (0.72-1.25)
[2019-06-04] MEDS: INSULIN LISPRO 100 UNIT/1 ML 3ML VIAL SQ SCH ×2 (07:30→11:30)
--- NOTE | 2019-06-04 11:08 | NUR ---
STATES GOING TO SEE A PAIN MANAGEMENT MD NEXT WEEK, STARTS WITH AN H, OFFICE ON [address]
--- NOTE | 2019-06-04 11:14 | NUR ---
SPOKE WITH HIM ABOUT DISABILITY
--- NOTE | 2019-06-04 15:30 | NUR ---
Discharge paperwork and instructions given to the patient. He verbalized understanding. IV from right ac was removed with tip intact.
--- NOTE | 2019-06-04 15:46 | NUR ---
Nutrition Screen Note RD Recommendation for Physician: -Consider 6 small meals throughout the day, low fat and 1800 ADA restriction. -Consider renal restriction pending lab trends. Plan of Care: RD following, monitoring for tolerance and adequacy. Education provided. Nutrition reason for involvement: Diagnosis and MST of 2 Primary Diagnose(s): ESRD PMH: ESRD, T2DM, HTN, dyslipidemia Ht: 70 in Wt: 175 lb BMI: 25.1kg/m2 IBW: [address] Assessment: (06/04) 58 YOM admitted for ESRD, pt is on dialysis three times per week. Pt has reportedly been to the hospital 7 times in the past year d/t his N/V. Pt reported he has gastroparesis as well, pt has an EGD scheduled for outpatient. Pt reported he had a poor appetite for about 2 days prior to admission. Pt has now been advanced to a diet and has been completing 75% of his meals. Pt stated he has some constipation but denied N/V at the moment as well as chewing/swallowing issues or any food allergies. Pt was also educated on the ESRD, T2DM and gastroparesis diets and MNT and given educational handouts. Pt had no other questions or concerns. POC GM: 148. Pt is on insulin and his reglan was decreased per EMR. Pt appears to have some weight loss from early May which could be related to fluid. Chart reviewed. Labs and meds reviewed.Will continue to monitor. Current Diet: 1800 ADA diet Malnutrition Evaluation (06/04) The patient does not meet criteria for a specified degree of malnutrition at this time. Will re-evaluate at follow-up as appropriate. . Energy intake: <50% of estimated energy requirements for >5 days Weight loss: >2% in 1week (Acute)-could be related to weight fluctuations Learner(s): pt Barriers: none Cultural/Language Modifications: none Readiness: acceptance Method: discussion ,handout, teach back Topics: DM, ESRD, Gastroparesis MNT Understanding/Compliance: verbalized understanding, anticipate good compliance Nutrition Care Level: low Signed: Anila Cyr, RD, LD
== END 2019-06-04 15:46 | disposition home or self-care (01) ==
LOC: ER 15:31 → INTOOBSV 18:14 → ERHOLD 18:14 → MED/SURG2 19:29
DX: I12.0 Hypertensive chronic kidney disease with stage 5 chronic kidney disease or end stage renal disease (principal); E11.22 Type 2 diabetes mellitus with diabetic chronic kidney disease; N18.6 End stage renal disease; Z99.2 Dependence on renal dialysis; Z79.4 Long term (current) use of insulin; E11.43 Type 2 diabetes mellitus with diabetic autonomic (poly)neuropathy; K31.84 Gastroparesis; D63.1 Anemia in chronic kidney disease
CPT/HCPCS: 36415 ×3; 71045; 80048; 80053 ×2; 81001; 82150; 82550; 82553; 82948 ×2; 83690; 83880; 84484; 85025 ×3; 85610; 85730; 86704; 86707; 87350; 93005; 99284; G0257; G0378 ×3; J1200; J1644; J2150; J2270 ×3; J2405; J2765 ×3; J7030; 90962

== ENCOUNTER 2019-06-17 06:54 | Emergency (ER) | payer BC ==
[~2019-06-17] VITALS: Ht 177.8 cm; Wt 79.4 kg
--- OUTSIDE RECORDS SUMMARY | 2019-06-17 06:58 | XMS REPORT | Continuity of Care Document ---
Author Author [facility] Organization [facility] Address Unknown Phone Unavailable Care Team Providers [facility] Paramedic Name Role Phone [facility] Unavailable Unavailable Problems Problem Status Onset Date Classification Date Reported Comments Source Chronic kidney disease, stage 4 Active Problem 11/09/2018 [id number] Type 2 diabetes mellitus with diabetic chronic kidney disease Active Diagnosis 05/20/2019 2.16.840.1.370569.4.391.11.73011 Type 2 diabetes mellitus with diabetic autonomic neuropathy Active Problem 11/09/2018 2.16.840.1.563222.4.391.11.09513 Peripheral vascular disease Active Diagnosis 05/20/2019 2.16.840.1.683135.4.391.11.53026 Other and unspecified hyperlipidemia Active Diagnosis 05/20/2019 2.16.840.1.168552.4.391.11.71181 Cardiomyopathy Active Diagnosis 05/20/2019 2.16.840.1.807717.4.391.11.48091 History of CVA Active Problem 11/09/2018 2.16.840.1.373733.4.391.11.33847 Essential hypertension Active Problem 11/09/2018 2.16.840.1.204309.4.391.11.45548 Proliferative diabetic retinopathy Active Problem 05/20/2019 2.16.840.1.225992.4.391.11.05088 Gastroparesis Active Diagnosis 05/20/2019 2.16.840.1.768388.4.391.11.86126 Diabetic retinopathy associated with controlled type 2 diabetes mellitus Active Diagnosis 05/20/2019 2.16.840.1.144494.4.391.11.72544 Hypertensive urgency Active Diagnosis 05/20/2019 2.16.840.1.796371.4.391.1186167 Periaortic lymphadenopathy Active Diagnosis 05/20/2019 2.16.840.1.629580.4.391.11.60930 Elevated PSA Active Diagnosis 05/20/2019 2.16.840.1.107800.4.391.11.81938 Right carotid artery occlusion Active Diagnosis 05/20/2019 2.16.840.1.873184.4.391.11.74561 Chronic combined systolic and diastolic heart failure Active Diagnosis 05/20/2019 2.16.840.1.851668.4.391.1176572 Acute bronchitis, unspecified organism Active Diagnosis 11/09/2018 2.16.840.1.389708.4.391.1146729 Type 2 diabetes mellitus with diabetic autonomic (poly)neuropathy Active Diagnosis 05/20/2019 2.16.840.1.411722.4.391.1152616 History of CVA (cerebrovascular accident) Active Diagnosis 05/20/2019 2.16.840.1.547367.4.391.52944 Essential (primary) hypertension Active Problem 05/20/2019 2.16.840.1.129039.4.391.11.25285 ESRD (end stage renal disease) Active Problem 05/20/2019 2.16.840.1.921337.4.391. Hemodialysis status Active Problem 05/20/2019 2.16.840.1.954847.4.391.11.73231 Encounter for general adult medical examination with abnormal findings Active Diagnosis 05/20/2019 2.16.840.1.910242.4.391.1131955 Encounter for screening Active Diagnosis 05/20/2019 2.16.840.1.228161.4.391.11.67611 Chronic kidney disease, stage 4 (severe) Active Problem 05/20/2019 2.16.840.1.450657.4.391.1187468 Lower abdominal pain Active Diagnosis 05/20/2019 2.16.840.1.387516.4.391.11.30194 Chronic constipation Active Diagnosis 05/20/2019 2.16.840.1.569313.4.391..27673 Anemia, chronic disease Active Problem 04/27/2019 [facility] CKD Active Problem 04/27/2019 [facility] Cellulitis Active Problem 05/20/2019 [facility] Dehydration Active Problem 05/20/2019 [facility] ESRD Active Problem 04/27/2019 [facility] Hyperkalemia Active Problem 05/20/2019 [facility] Renal failure Active Problem 05/20/2019 [facility] UTI Active Problem 04/27/2019 [facility] Vomiting Active Problem 05/20/2019 [facility] Abdominal pain Active Problem 05/20/2019 [facility] Chronic disease anemia Active Problem 05/20/2019 [facility] Chronic kidney disease Active Problem 05/20/2019 [facility] End-stage renal disease Active Problem 05/20/2019 [facility] Urinary tract infection Active Problem 05/20/2019 [facility] Medications Medication Details Route Status Patient Instructions Ordering Provider Order Date Source Linzess 1 capsule Orally Active 290 MCG Orally Once a day [facility] 04/24/2019 2.16.840.1.972679.4.391.68 Doxycycline Hyclate 100 Mg Capsule, 100 Mg Oral Twice A Day as needed for Redness Active 03/27/2019 [facility] Questran 1 packet mixed with water or non-carbonated drink Orally Active 4 GM Orally Twice a day [facility] 11/03/2018 2.16.840.1.994384.4.391.68 Promethazine-DM 5 ml as needed Orally Active 6.25-15 MG/5ML Orally every 6 hrs [facility] 11/03/2018 2.16.840.1.062805.4.391.68 Ceftin 1 tablet Orally Active 250 MG Orally every 12 hrs Newton 11/03/2018 2.16.840.1.035143.4.391.68 Questran 1 packet mixed with water or non-carbonated drink Orally Active 4 GM Orally Twice a day for diarrhea Newton 10/22/2018 2.16.840.1.934756.4.391.11. Metoprolol Tartrate 1 tablet with food Orally Active 50 mg Orally Twice a day [facility] 10/20/2018 2.16.840.1.566108.4.391.11.54286 Metoprolol Tartrate 1 tablet with food Orally Active 100 mg Orally Twice a day [facility] 10/20/2018 2.16.840.1.950402.4.391.11. Metoprolol Tartrate 1 tablet with food Orally Active 100 mg Orally Twice a day [facility] 10/20/2018 2.16.840.1.103872.4.391.11. Hemocyte Plus 1 capsule Orally Active 106-1 MG Orally Once a day [facility] 04/24/2018 2.16.840.1.145898.4.391.11. Glimepiride 1 tablet with breakfast or the first main meal of the day Orally Active 4 mg Orally Once a day [facility] 04/20/2018 2.16.840.1.623008.4.391.11.22041 HydrALAZINE HCl 1 tablet Orally Active 50 mg Orally BID [facility] 04/20/2018 2.16.840.1.944967.4.391.1126904 Lasix 1 tablet Orally Active 40 mg Orally Once a day [facility] 04/20/2018 2.16.840.1.967001.4.391..50883 HydrALAZINE HCl 1 tablet Orally Active 100 MG Orally BID [facility] 04/20/2018 2.16.840.1.469083.4.391.11.36413 Atorvastatin Calcium 1 tablet Orally Active 40 mg Orally Once a day [facility] 16840.1.251322.4.391. Pantoprazole Sodium 1 tablet Orally Active 40 mg Orally twice a day (bid) [facility] 16840.1.524760.4.391.11 Reglan 1 tablet Orally Active 5 MG Orally 4 times a day befor meals and at bedtime [facility] .16840.1.057188.4.391.11.61194 Aspir-81 1 tablet Orally Active 81 MG Orally Once a day [facility] 2.16.840.1.812114.4.391.11.74722 Atorvastatin Calcium 40 Mg Tablet Daily Active [facility] Hydralazine Hcl 50 Mg Tablet Twice A Day Active [facility] Metoclopramide Hcl 5 Mg Tablet Before Meals And At Bedtime Active [facility] Acetaminophen With Codeine (Tylenol With Codeine #3 Tablet) 1 Each Tablet Every 6 Hours as needed for Abdominal Pain Active [facility] Nifedipine (Nifedipine Er) 30 Mg Tab.er.24 Daily Active [facility] Nitrofurantoin Macrocrystal (Nitrofurantoin) 100 Mg Capsule Twice A Day Active [facility] Ondansetron Hcl (Zofran*) 4 Mg Tablet Every 6 Hours as needed for Nausea Active [facility] Allergies, Adverse Reactions, Alerts Substance Category Reaction Severity Reaction type Status Date Reported Comments Source N.K.D.A. Adverse Reaction Info Not Available Adverse Reaction 05/01/2019 [id number] Immunizations No Data Provided for This Section Results Order Name Results Value Reference Range Date Interpretation Comments Source Urine color determination YELLOW YELLOW 05/19/2019 [facility] Urine clarity SL CLOUDY CLEAR 05/19/2019 [facility] Specific gravity of Urine by Test strip >=1.030 1.010 - 1.025 05/19/2019 [facility] Urine pH measurement by automated test strip 5 5 - 7 05/19/2019 [facility] Urine leukocyte esterase detection by automated test strip NEGATIVE NEGATIVE 05/19/2019 [facility] Urine nitrite detection by automated test strip NEGATIVE NEGATIVE 05/19/2019 [facility] Urine protein detection by automated test strip 1+ NEGATIVE 05/19/2019 [facility] Urine glucose detection by automated test strip NEGATIVE NEGATIVE 05/19/2019 [facility] Urine ketones detection by automated test strip NEGATIVE NEGATIVE 05/19/2019 [facility] Urine urobilinogen measurement by test strip (mass/volume) 1 0.2 - 1 05/19/2019 [facility] Urine total bilirubin detection SMALL NEGATIVE 05/19/2019 [facility] Urine erythrocytes detection NEGATIVE NEGATIVE 05/19/2019 [facility] Automated urine sediment leukocyte count by microscopy (number/high power field) NONE 0 - 5 05/19/2019 [facility] Erythrocytes detection in urine sediment by light microscopy NONE 0 - 5 05/19/2019 [facility] Bacteria detection in urine sediment by light microscopy RARE NONE 05/19/2019 [facility] Epithelial cells detection in urine sediment by light microscopy FEW NONE 05/19/2019 [facility] Amorphous sediment detection in urine sediment by light microscopy RARE FEW 05/19/2019 [facility] Blood leukocytes automated count (number/volume) 6.55 4.8 - 10.8 05/19/2019 [facility] Blood erythrocytes automated count (number/volume) 3.21 4.3 - 5.7 05/19/2019 [facility] Blood hemoglobin measurement (moles/volume) 9.6 14.0 - 18.0 05/19/2019 [facility] Automated blood hematocrit (volume fraction) 30.0 38.2 - 49.6 05/19/2019 [facility] Automated erythrocyte mean corpuscular volume 93.5 81 - 99 05/19/2019 [facility] Automated erythrocyte mean corpuscular hemoglobin (mass per erythrocyte) 29.9 28 - 32 05/19/2019 [facility] Automated erythrocyte mean corpuscular hemoglobin concentration measurement (mass/volume) 32.0 31 - 35 05/19/2019 [facility] RDW BldCo-Rto 16.1 11.7 - 14.4 05/19/2019 [facility] Automated blood platelet count (count/volume) 162 140 - 360 05/19/2019 [facility] Automated blood segmented neutrophil count as percentage of total leukocytes 65.3 38.7 - 80.0 05/19/2019 [facility] Automated blood lymphocyte count as percentage ot total leukocytes 20.3 18.0 - 39.1 05/19/2019 [facility] Automated blood monocyte count as percentage of total leukocytes 12.7 4.4 - 11.3 05/19/2019 [facility] Automated blood eosinophil count as percentage of total leukocytes 0.9 0.0 - 6.0 05/19/2019 [facility] Automated blood basophil count as percentage of total leukocytes 0.3 0.0 - 1.0 05/19/2019 [facility] IM GRANULOCYTES % 0.5 0.0 - 1.0 05/19/2019 [facility] Automated blood neutrophil count 4.3 2.1 - 6.9 05/19/2019 [facility] Blood lymphocytes count (number/volume) 1.3 1.0 - 3.2 05/19/2019 [facility] Blood monocytes automated count (number/volume) 0.8 0.2 - 0.8 05/19/2019 [facility] Automated blood eosinophil count 0.1 0.0 - 0.4 05/19/2019 [facility] Automated blood basophil count (count/volume) 0.0 0.0 - 0.1 05/19/2019 [facility] Absolute Immature Granulocyte (auto 0.03 0 - 0.1 05/19/2019 [facility] Prothrombin time (PT) in platelet poor plasma by coagulation assay 14.1 11.9 - 14.5 05/19/2019 [facility] INR in Platelet poor plasma by Coagulation assay 1.04 05/19/2019 [facility] Activated partial thromboplastin time (aPTT) in platelet poor plasma bycoagulation assay 36.8 23.8 - 35.5 05/19/2019 [facility] Serum or plasma sodium measurement (moles/volume) 136 136 - 145 05/19/2019 [facility] Serum or plasma potassium measurement (moles/volume) 4.0 3.5 - 5.1 05/19/2019 [facility] Serum or plasma chloride measurement (moles/volume) 97 98 - 107 05/19/2019 [facility] Serum or plasma carbon dioxide, total measurement (moles/volume) 29 22 - 29 05/19/2019 [facility] Serum or plasma anion gap 14.0 8 - 16 05/19/2019 [facility] Serum or plasma urea nitrogen measurement (mass/volume) 27 7 - 26 05/19/2019 [facility] Serum or plasma creatinine measurement (mass/volume) 3.73 0.72 - 1.25 05/19/2019 [facility] Serum or plasma urea nitrogen/creatinine mass ratio 7 6 - 25 05/19/2019 [facility] Estimated glomerular filtration rate (GFR) determination 17 60 05/19/2019 [facility] Glucose measurement 102 74 - 118 05/19/2019 [facility] Serum or plasma calcium measurement (mass/volume) 8.6 8.4 - 10.2 05/19/2019 [facility] Serum or plasma total bilirubin measurement (mass/volume) 0.6 0.2 - 1.2 05/19/2019 [facility] Aspartate Amino Transf (AST/SGOT) 13 5 - 34 05/19/2019 [facility] Serum or plasma alanine aminotransferase measurement (enzymatic activity/volume) 9 0 - 55 05/19/2019 [facility] Serum or plasma protein measurement (mass/volume) 8.2 6.5 - 8.1 05/19/2019 [facility] Serum or plasma albumin measurement (mass/volume) 3.2 3.5 - 5.0 05/19/2019 [facility] Plasma globulin measurement (mass/volume) 5.0 2.3 - 3.5 05/19/2019 [facility] Serum or plasma albumin/globulin mass ratio 0.6 0.8 - 2.0 05/19/2019 [facility] Serum or plasma alkaline phosphatase measurement (enzymatic activity/volume) 69 40 - 150 05/19/2019 [facility] Serum or plasma creatine kinase measurement (enzymatic activity/volume) 87 30 - 200 05/19/2019 [facility] Serum or plasma creatine kinase MB measurement (mass/volume) 4.00 0 - 5.0 05/19/2019 [facility] Troponin I measurement by highly sensitive enzyme immunoassay 0.056 0 - 0.300 05/19/2019 [facility] Urine color determination YELLOW YELLOW 04/22/2019 [facility] Urine clarity CLEAR CLEAR 04/22/2019 [facility] Specific gravity of Urine by Test strip 1.020 1.010 - 1.025 04/22/2019 [facility] Urine pH measurement by automated test strip 8 5 - 7 04/22/2019 [facility] Urine leukocyte esterase detection by automated test strip NEGATIVE NEGATIVE 04/22/2019 [facility] Urine nitrite detection by automated test strip NEGATIVE NEGATIVE 04/22/2019 [facility] Urine protein detection by automated test strip 3+ NEGATIVE 04/22/2019 [facility] Urine glucose detection by automated test strip NEGATIVE NEGATIVE 04/22/2019 [facility] Urine ketones detection by automated test strip NEGATIVE NEGATIVE 04/22/2019 [facility] Urine urobilinogen measurement by test strip (mass/volume) 0.2 0.2 - 1 04/22/2019 [facility] Urine total bilirubin detection NEGATIVE NEGATIVE 04/22/2019 [facility] Urine erythrocytes detection 3+ NEGATIVE 04/22/2019 [facility] Automated urine sediment leukocyte count by microscopy (number/high power field) 6-10 0 - 5 04/22/2019 [facility] Erythrocytes detection in urine sediment by light microscopy >50 0 - 5 04/22/2019 [facility] Bacteria detection in urine sediment by light microscopy MODERATE NONE 04/22/2019 [facility] Epithelial cells detection in urine sediment by light microscopy FEW NONE 04/22/2019 [facility] Blood leukocytes automated count (number/volume) 9.75 4.8 - 10.8 04/22/2019 [facility] Blood erythrocytes automated count (number/volume) 3.49 4.3 - 5.7 04/22/2019 [facility] Blood hemoglobin measurement (moles/volume) 10.5 14.0 - 18.0 04/22/2019 [facility] Automated blood hematocrit (volume fraction) 32.3 38.2 - 49.6 04/22/2019 [facility] Automated erythrocyte mean corpuscular volume 92.6 81 - 99 04/22/2019 [facility] Automated erythrocyte mean corpuscular hemoglobin (mass per erythrocyte) 30.1 28 - 32 04/22/2019 [facility] Automated erythrocyte mean corpuscular hemoglobin concentration measurement (mass/volume) 32.5 31 - 35 04/22/2019 [facility] RDW BldCo-Rto 15.1 11.7 - 14.4 04/22/2019 [facility] Automated blood platelet count (count/volume) 172 140 - 360 04/22/2019 [facility] Automated blood segmented neutrophil count as percentage of total leukocytes 74.0 38.7 - 80.0 04/22/2019 [facility] Automated blood lymphocyte count as percentage ot total leukocytes 14.5 18.0 - 39.1 04/22/2019 [facility] Automated blood monocyte count as percentage of total leukocytes 9.7 4.4 - 11.3 04/22/2019 [facility] Automated blood eosinophil count as percentage of total leukocytes 1.0 0.0 - 6.0 04/22/2019 [facility] Automated blood basophil count as percentage of total leukocytes 0.3 0.0 - 1.0 04/22/2019 [facility] IM GRANULOCYTES % 0.5 0.0 - 1.0 04/22/2019 [facility] Automated blood neutrophil count 7.2 2.1 - 6.9 04/22/2019 [facility] Blood lymphocytes count (number/volume) 1.4 1.0 - 3.2 04/22/2019 [facility] Blood monocytes automated count (number/volume) 1.0 0.2 - 0.8 04/22/2019 [facility] Automated blood eosinophil count 0.1 0.0 - 0.4 04/22/2019 [facility] Automated blood basophil count (count/volume) 0.0 0.0 - 0.1 04/22/2019 [facility] Absolute Immature Granulocyte (auto 0.05 0 - 0.1 04/22/2019 [facility] Serum or plasma sodium measurement (moles/volume) 135 136 - 145 04/22/2019 [facility] Serum or plasma potassium measurement (moles/volume) 4.2 3.5 - 5.1 04/22/2019 [facility] Serum or plasma chloride measurement (moles/volume) 98 98 - 107 04/22/2019 [facility] Serum or plasma carbon dioxide, total measurement (moles/volume) 24 22 - 29 04/22/2019 [facility] Serum or plasma anion gap 17.2 8 - 16 04/22/2019 [facility] Serum or plasma urea nitrogen measurement (mass/volume) 47 7 - 26 04/22/2019 [facility] Serum or plasma creatinine measurement (mass/volume) 4.98 0.72 - 1.25 04/22/2019 [facility] Serum or plasma urea nitrogen/creatinine mass ratio 9 6 - 25 04/22/2019 [facility] Estimated glomerular filtration rate (GFR) determination 12 60 04/22/2019 [facility] Glucose measurement 92 74 - 118 04/22/2019 [facility] Serum or plasma calcium measurement (mass/volume) 9.1 8.4 - 10.2 04/22/2019 [facility] Serum or plasma total bilirubin measurement (mass/volume) 0.5 0.2 - 1.2 04/22/2019 [facility] Aspartate Amino Transf (AST/SGOT) 18 5 - 34 04/22/2019 [facility] Serum or plasma alanine aminotransferase measurement (enzymatic activity/volume) 10 0 - 55 04/22/2019 [facility] Serum or plasma protein measurement (mass/volume) 8.9 6.5 - 8.1 04/22/2019 [facility] Serum or plasma albumin measurement (mass/volume) 3.6 3.5 - 5.0 04/22/2019 [facility] Plasma globulin measurement (mass/volume) 5.3 2.3 - 3.5 04/22/2019 [facility] Serum or plasma albumin/globulin mass ratio 0.7 0.8 - 2.0 04/22/2019 [facility] Serum or plasma alkaline phosphatase measurement (enzymatic activity/volume) 80 40 - 150 04/22/2019 [facility] Serum or plasma creatine kinase measurement (enzymatic activity/volume) 105 30 - 200 04/22/2019 [facility] Serum or plasma creatine kinase MB measurement (mass/volume) 5.10 0 - 5.0 04/22/2019 [facility] Troponin I measurement by highly sensitive enzyme immunoassay 0.042 0 - 0.300 04/22/2019 [facility] Serum or plasma amylase measurement (enzymatic activity/volume) 83 25 - 125 04/22/2019 [facility] Serum or plasma lipase measurement (enzymatic activity/volume) 56 8 - 78 04/22/2019 [facility] Serum or plasma amylase measurement (enzymatic activity/volume) 83 25 - 125 04/22/2019 [facility] Serum or plasma lipase measurement (enzymatic activity/volume) 56 8 - 78 04/22/2019 [facility] Capillary blood glucose measurement by glucometer (mass/volume) 195 70 - 120 03/28/2019 [facility] Capillary blood glucose measurement by glucometer (mass/volume) 195 70 - 120 03/28/2019 [facility] Serum hepatitis B virus surface antibody assay by radioimmunoassay (units/volume) <3.1 03/24/2019 [facility] Serum or plasma hepatitis B virus surface antigen detection by immunoassay Negative 03/24/2019 [facility] Serum or plasma hepatitis B virus core IgM antibody detection by immunoassay Negative 03/24/2019 [facility] Serum hepatitis C virus antibody detection 1.0 03/24/2019 [facility] Serum hepatitis B virus surface antibody assay by radioimmunoassay (units/volume) <3.1 03/24/2019 [facility] Serum or plasma hepatitis B virus surface antigen detection by immunoassay Negative 03/24/2019 [facility] Serum or plasma hepatitis B virus core IgM antibody detection by immunoassay Negative 03/24/2019 [facility] Serum hepatitis C virus antibody detection 1.0 03/24/2019 [facility] Prothrombin time (PT) in platelet poor plasma by coagulation assay 14.8 11.9 - 14.5 03/23/2019 [facility] INR in Platelet poor plasma by Coagulation assay 1.11 03/23/2019 [facility] Serum or plasma ferritin measurement (mass/volume) 557.71 21.81 - 274.66 03/23/2019 [facility] Serum or plasma iron binding capacity measurement (mass/volume) 137 261 - 478 03/23/2019 [facility] Serum or plasma iron saturation measurement (mass fraction) 15 15 - 50 03/23/2019 [facility] Serum or plasma transferrin measurement (mass/volume) 98 174 - 364 03/23/2019 [facility] Serum or plasma ferritin measurement (mass/volume) 557.71 21.81 - 274.66 03/23/2019 [facility] Serum or plasma iron measurement (mass/volume) 20 65 - 175 03/23/2019 [facility] Serum or plasma iron binding capacity measurement (mass/volume) 137 261 - 478 03/23/2019 [facility] Serum or plasma iron saturation measurement (mass fraction) 15 15 - 50 03/23/2019 [facility] Serum or plasma transferrin measurement (mass/volume) 98 174 - 364 03/23/2019 [facility] Phosphorus measurement 7.1 2.3 - 4.7 03/22/2019 [facility] Serum or plasma magnesium measurement (mass/volume) 1.7 1.3 - 2.1 03/22/2019 [facility] Phosphorus measurement 7.1 2.3 - 4.7 03/22/2019 [facility] Serum or plasma magnesium measurement (mass/volume) 1.7 1.3 - 2.1 03/22/2019 [facility] Amorphous sediment detection in urine sediment by light microscopy MODERATE FEW 03/21/2019 [facility] Random serum or plasma vancomycin measurement (mass/volume) 13.6 02/21/2019 [facility] Random serum or plasma vancomycin measurement (mass/volume) 13.6 02/21/2019 [facility] Hemoglobin A1c Percent 5.5 4.0 - 7.0 02/19/2019 [facility] Hemoglobin A1c Percent 5.5 4.0 - 7.0 02/19/2019 [facility] Activated partial thromboplastin time (aPTT) in platelet poor plasma bycoagulation assay 40.4 23.8 - 35.5 02/18/2019 [facility] Lactic Acid Level 6.2 4.5 - 19.8 02/18/2019 [facility] Blood culture NO GROWTH AFTER 5 DAYS, FINAL REPORT 02/18/2019 [facility] Lactic Acid Level 6.2 4.5 - 19.8 02/18/2019 [facility] Urine protein measurement (mass/volume) 409.9 1 - 14 01/25/2019 [facility] Urine creatinine measurement (mass/volume) 69.46 63 - 166 01/25/2019 [facility] Random urine protein/creatinine ratio 5.00 01/25/2019 [facility] Automated reticulocyte count as percentage of total erythrocytes 1.6 0.6 - 2.1 01/24/2019 [facility] Serum or plasma lactate dehydrogenase measurement (enzymatic activity/volume) 208 125 - 220 01/24/2019 [facility] Blood cobalamin (vitamin B12) measurement (mass/volume) 366 213 - 816 01/24/2019 [facility] Serum or plasma folate measurement (mass/volume) 9.2 7.0 - 15.4 01/24/2019 [facility] Serum or plasma haptoglobin measurement (mass/volume) 150 34 - 200 01/24/2019 [facility] Serum or plasma carcinoembryonic antigen measurement (mass/volume) 2.8 0.0 - 4.7 01/24/2019 [facility] Serum or plasma prostate specific antigen measurement (mass/volume) 11.8 0.0 - 4.0 01/24/2019 [facility] Pathology Reports No Data Provided for This Section Diagnostic Reports No Data Provided for This Section Consultation Notes No Data Provided for This Section Discharge Summaries No Data Provided for This Section History and Physicals No Data Provided for This Section Vital Signs Vital Sign Value Date Comments Source Weight 181.3 05/01/2019 2.16.840.1.357404.4.391.68 Height 69.0 05/01/2019 2.16.840.1.000921.4.391.13741 Temperature Oral (F) 97.8 F 05/01/2019 2.16.840.1.335055.4.391.11.52157 Heart Rate 78 05/01/2019 2.16.840.1.232372.4.391.11.21805 Diastolic (mm Hg) 94 05/01/2019 2.16.840.1.653530.4.391.11.45184 Systolic (mm Hg) 182 05/01/2019 2.16.840.1.026286.4.391.11.58172 Weight 175.3 04/24/2019 2.16.840.1.527959.4.391.11.70398 Height 69.0 04/24/2019 2.16.840.1.536824.4.391.11.57499 Temperature Oral (F) 97.3 F 04/24/2019 2.16.840.1.728390.4.391.11.58667 Heart Rate 71 04/24/2019 2.16.840.1.770466.4.391.11.34365 Diastolic (mm Hg) 87 04/24/2019 2.16.840.1.743972.4.391.11.41728 Systolic (mm Hg) 152 04/24/2019 2.16.840.1.315620.4.391.11.83281 Weight 194.0 11/03/2018 2.16.840.1.283897.4.391.11.59133 Height 69.0 11/03/2018 2.16.840.1.540134.4.391.11.34655 Temperature Oral (F) 97.0 F 11/03/2018 2.16.840.1.618641.4.391.11.39966 Heart Rate 86 11/03/2018 2.16.840.1.377161.4.391.11.51849 Diastolic (mm Hg) 100 11/03/2018 2.16.840.1.750138.4.391.11.37842 Systolic (mm Hg) 166 11/03/2018 2.16.840.1.976379.4.391.11.13976 Weight 194.5 10/20/2018 2.16.840.1.341788.4.391.11.59046 Height 69.0 10/20/2018 2.16.840.1.831575.4.391.11.44490 Temperature Oral (F) 96.2 F 10/20/2018 2.16.840.1.447539.4.391.11.46474 Heart Rate 83 10/20/2018 2.16.840.1.005864.4.391.11.34882 Diastolic (mm Hg) 97 10/20/2018 2.16.840.1.451420.4.391.11.39750 Systolic (mm Hg) 183 10/20/2018 2.16.840.1.981693.4.391.11.71851 Weight 196.6 05/29/2018 2.16.840.1.907274.4.391.11.19823 Height 69.0 05/29/2018 2.16.840.1.262942.4.391.11.49307 Temperature Oral (F) 97.1 F 05/29/2018 2.16.840.1.328441.4.391.11.57197 Heart Rate 82 05/29/2018 2.16.840.1.252759.4.391.11.27237 Diastolic (mm Hg) 94 05/29/2018 2.16.840.1.923684.4.391.11.39278 Systolic (mm Hg) 183 05/29/2018 2.16.840.1.081519.4.391.11.77765 Encounters Location Location Details Encounter Type Encounter Number Reason For Visit Attending Provider ADM Date DC Date Status Source Discharged Inpatient [id number] CLARKE BOONE MD 01/23/2019 01/27/2019 [facility] Discharged Inpatient [id number] AMANDO ETIENNE MD 02/18/2019 02/21/2019 [facility] Discharged Inpatient [id number] JHONNY LEY MD 03/21/2019 03/28/2019 [facility] Departed Emergency Room [id number] MOISES ADAMES MD 04/22/2019 04/23/2019 [facility] Departed Emergency Room [id number] ASTON OLPEZ MD 04/27/2019 04/27/2019 [facility] Departed Emergency Room [id number] JASMINE HARMON MD 05/19/2019 05/20/2019 [facility] Procedures Procedure Code Date Perfomer Comments Source TRANSFUSE NONAUT RED BLOOD CELLS IN CENTRAL VEIN, PERC [id number] 03/27/2019 [facility] PERFORMANCE OF URINARY FILTRATION, <6 HRS/DAY [id number] 03/23/2019 [facility] INSERT OF TUNNEL VAD INTO CHEST SUBCU/FASCIA, PERC APPROACH [id number] 03/23/2019 [facility] INSERTION OF INFUSION DEV INTO SUP VENA CAVA, PERC APPROACH [id number] 03/23/2019 [facility] TRANSFUSE NONAUT RED BLOOD CELLS IN PERIPH VEIN, PERC [id number] 01/25/2019 [facility] Ultrasound, renal [id number] 01/24/[address] [facility] [address] of abdomen and pelvis without contrast [id number] 01/23/2019 [facility] Assessment and Plan No Data Provided for This Section Plan of Care Plan of Care Date Source Discharge Date 05/20/19 12:40am Disposition HOME, SELF-CARE Condition at Discharge Stable Instructions/Education Provided Abdominal Pain - Adult Forms Provided Work/School Excuse Prescriptions See Medication Section Referrals ELIS ETIENNE MD Address: [address] [place] [address] [address] [place], [place] [id number] STEPHON GERONIMO MD Address: [address] [place] [address], [facility] [place] [address] Additional Instructions/Education Your CT scan is concerning for possibe lymph node problems including but not limited to lymphoma or other lymphproliferative process Please f/u with the heme/onc dr provided for possible biopsy Please see the GI doctor provided for further work up, you may go in as a walk in on Tuesday Please go to your heme/onc [facility] tuesday05/20/2019 [facility] Discharge Date 04/27/19 10:55am Disposition HOME, SELF-CARE Condition at Discharge Stable Instructions/Education Provided Abdominal Pain - Adult Constipation - Adult Forms Provided Work/School Excuse Prescriptions See Medication Section Referrals Md Manuel 04/27/2019 [facility] Discharge Date 04/23/19 12:47am Disposition HOME, SELF-CARE Condition at Discharge Stable Instructions/Education Provided Abdominal Pain - Adult Forms Provided Work/School Excuse Prescriptions See Medication Section Referrals BATOOL VITAL MD Order Date: Call for an appointment Address: [address] [place] [address] [address] [place] [address] Md Manuel Order Date: Call for an appointment STEPHON GERONIMO MD Order Date: Call for an appointment Address: [address] [place] [address] [address] [place] [address] Additional Instructions/Education take medications as prescribed follow-up with oncologist 04/23/2019 [facility] Social History Social History Date Source Smoking Status Start Date Stop Date Never Smoker 05/20/2019 [facility] Family History No Data Provided for This Section Advance Directives Order Name Results Value Date Source Advance Directives Advance Directives Directive Response Recorded Date/Time Does the patient have an advance directive? No 03/22/19 12:00am If yes, is advance directive on file with [facility]? No 04/27/19 8:04am If not on file with [facility] will patient provide a copy? No 04/27/19 8:04am Do you have a Directive to Physician? No 05/19/19 5:47pm Do you have a Medical Power of [employer]? No 05/19/19 5:47pm Do you have an out of hospital Do Not Resuscitate Order? No 05/19/19 5:47pm Do you have any special needs we should be aware of? No 05/19/19 5:47pm Do you have a support person here with you today? No 05/19/19 5:47pm Did patient receive Notice of Privacy Practices? Yes 05/19/19 5:47pm Did patient receive patient rights and responsibilities? Yes 05/19/19 5:47pm 05/20/2019 [facility] Advance Directives Advance Directives Directive Response Recorded Date/Time Does the patient have an advance directive? No 03/22/19 12:00am If yes, is advance directive on file with [facility]? No 04/27/19 8:04am If not on file with [facility] will patient provide a copy? No 04/27/19 8:04am Do you have a Directive to Physician? No 04/27/19 8:04am Do you have a Medical Power of [employer]? No 04/27/19 8:04am Do you have an [...] rights and responsibilities? No 04/27/19 8:04am 04/27/2019 [facility] Advance Directives Advance Directives Directive Response Recorded Date/Time Does the patient have an advance directive? No 03/22/19 12:00am Do you have a Directive to Physician? No 04/22/19 8:54pm Do you have a Medical Power of [employer]? No 04/22/19 8:54pm Do you have an [...] rights and responsibilities? Yes 04/22/19 8:54pm 04/23/2019 [facility] Functional Status No Data Provided for This Section
[2019-06-17] MEDS ORDERED: DIPHENHYDRAMINE HCL INJ 50 MG/ML VIAL IM ONE (08:00)
[2019-06-17] MEDS ORDERED: ONDANSETRON HCL 4 MG ORAL DISINTEGRATING TAB PO ONE (08:00)
== END 2019-06-17 09:57 | disposition home or self-care (01) ==
LOC: ER 06:54
DX: R10.30 Lower abdominal pain, unspecified (principal); R11.0 Nausea; E11.43 Type 2 diabetes mellitus with diabetic autonomic (poly)neuropathy; I12.0 Hypertensive chronic kidney disease with stage 5 chronic kidney disease or end stage renal disease; E11.22 Type 2 diabetes mellitus with diabetic chronic kidney disease; N18.6 End stage renal disease; Z99.2 Dependence on renal dialysis
CPT/HCPCS: 99283; J1200; Q0162